=== PATIENT | female | born 1935 | race Caucasian/White ===

== ENCOUNTER 2018-04-03 12:54 | Inpatient (IN) | payer MEDICARE, OTHER ==
[2018-04-03] MEDS ORDERED: Heparin Sodium 100 Units/ML 3 ML Syringe FLUSH SCH (18:00)
[2018-04-03] MEDS ORDERED: ceFAZolin 1 GM Vial IVPUSH SCH (18:00)
[2018-04-03] MEDS ORDERED: Polyethylene Glycol 3350 Powder 17 GM Packet PO PRN (18:32)
[2018-04-03] MEDS ORDERED: Sodium Chloride 0.9% 10 ML Syringe IV SCH (18:45)
--- NOTE | 2018-04-03 19:11 | PCM.HP ---
H&P History of Present Illness - General Date of Service: 04/03/18 Admit Problem/Dx: Admission Diagnosis/Problem Admission Diagnosis/Problem Infection of prosthetic hip joint Source of Information: Patient History Limitations: Reports: No Limitations - History of Present Illness Initial Comments - Free Text/Narative: Ms. Deras is an 82 yo female who is admitted to swing bed for IV antibiotics and PT after an acute hospitalization in [place] for bacteremia secondary to right hip infection. The patient has had chronic hip pain despite a right HERMINIO in 05/17 and revision in 02/16. She had some testing done in [place] that raised some questions in her right hip joint. Therefore, an MRI was obtained locally and raised concern for possible infection. She had labs done that showed an elevated CRP and ESR; therefore, she was referred to [facility] to have an aspiration of the right hip. This was negative and she was dismissed home after an overnight admission. The subsequent day, her blood cultures returned positive, and she was readmitted for further evaluation and management. She was started on IV antibiotics and ID was consulted; she underwent revision of the right hip again on 03/31. Her blood cultures were consistent with the cultures from her hip surgery and grew staph lugdunensis. Once susceptibilities were available, she was transitioned to ancef and rifampin from vancomycin. Her hospitalization was complicated by postoperative anemia that responded well to transfusion of 1 unit of PRBC. She did initially have pain that was difficult to control but was able to transition to oral pain medications prior to dismissal today. Upon arrival to swing bed, she does endorse some right hip pain. She states that this has been overall well controlled with the medications she has gotten in the past 24 hours. She did have some constipation but that resolved with an enema yesterday. She also had a BM today. Her appetite has not been great but is improving; she notes some vomiting earlier in the week but none today. No fever or chills. She is tired from everything that has happened this week but looking forward to recovering. She denies any other concerns today. - Related Data Allergies/Adverse Reactions: Allergies Allergy/AdvReac Type Severity Reaction Status Date / Time codeine AdvReac Nausea and Verified 04/03/18 14:41 Vomiting nicotine patch Allergy Rash Uncoded 04/03/18 14:41 Home Medications: Home Meds Oxybutynin [Oxybutynin ER] 5 mg PO DAILY 08/06/17 [History] Denosumab [Prolia] 60 mg SQ Q180D 08/08/17 [History] Acetaminophen 650 mg PO Q6H 04/03/18 [History] Calcium Citrate/Vitamin D3 [Calcium Cit-Vit D 315-200] 1 tab PO BIDMEALS [History] Enoxaparin Sodium 40 mg SQ DAILY 04/03/18 [History] Heparin Sodium,Porcine/PF [Heparin 300 Unit/3 ml (100/ml)] 300 unit IV Q8H 04/03 [History] Heparin Sodium,Porcine/PF [Heparin 300 Unit/3 ml (100/ml)] 300 units IV ASDIRECTED PRN 04/03/18 [History] Hydrochlorothiazide [Microzide] 12.5 mg PO DAILY 04/03/18 [History] Polyethylene Glycol 3350 [Miralax] 17 gm PO DAILY PRN 04/03/18 [History] Rifampin [Rifadin] 300 mg PO BID 04/03/18 [History] Sennosides/Docusate Sodium [Senna Plus Tablet] 2 tab PO BID PRN 04/03/18 [ History] Sodium Chloride 0.9% [Saline Flush] 10 ml FLUSH ASDIRECTED PRN 04/03/18 [History ] Sodium Chloride 0.9% [Saline Flush] 10 ml IV Q8H 04/03/18 [History] ceFAZolin [Ancef] 2 gm IVPUSH Q8H 04/03/18 [History] oxyCODONE 5 mg PO Q4H PRN 04/03/18 [History] traMADol [Ultram] 50 mg PO Q6H PRN 04/03/18 [History] Past Medical History HEENT History: Reports: None Cardiovascular History: Reports: Heart Murmur, High Cholesterol, Other (See Below) Other Cardiovascular History: Mitral valve insuffiency. edema Respiratory History: Reports: COPD, Other (See Below) Other Respiratory History: pneumonia Gastrointestinal History: Reports: Colon Polyp, Hemorrhoids Genitourinary History: Reports: Other (See Below) Other Genitourinary History: Over active bladder Musculoskeletal History: Reports: Fracture, Osteoporosis Other Musculoskeletal History: Closed right hip fx. right wrist fx. 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 Dermatologic History: Reports: None - Infectious Disease History Infectious Disease History: Reports: None - Past Surgical History Head Surgeries/Procedures: Reports: None HEENT Surgical History: Reports: Adenoidectomy, Tonsillectomy Cardiovascular Surgical History: Reports: None GI Surgical History: Reports: Colonoscopy, Colostomy, Hernia, Abdominal, Other ( See Below) Other GI Surgeries/Procedures: colostomy with reversal Neurological Surgical History: Reports: None Musculoskeletal Surgical History: Reports: Carpal Tunnel, Hip Replacement Other Musculoskeletal Surgeries/Procedures:: Right Social & Family History - Family History Cardiac: Reports: CAD - Tobacco Use Smoking Status *Q: Former Smoker Used Tobacco, but Quit: Yes Month/Year Tobacco Last Used: 2013 - Caffeine Use Caffeine Use: Reports: Coffee - Alcohol Use Alcohol Use History: No Alcohol Use in Last Twelve Months: No - Recreational Drug Use Recreational Drug Use: No - Living Situation & Occupation Living situation: Reports: , Alone 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[employer]) H&P Review of Systems - Review of Systems: Review Of Systems: See Below General: Reports: No Symptoms HEENT: Reports: No Symptoms Pulmonary: Reports: No Symptoms Cardiovascular: Reports: No Symptoms Gastrointestinal: Reports: No Symptoms Genitourinary: Reports: No Symptoms Musculoskeletal: Reports: Joint Pain, Muscle Pain Skin: Reports: No Symptoms Psychiatric: Reports: No Symptoms Neurological: Reports: No Symptoms Exam - Exam Exam: See Below - Vital Signs Vital Signs: Last Vital Signs Temp 37.2 C 04/03/18 17:46 Pulse 103 H 04/03/18 17:46 Resp 18 04/03/18 15:11 BP 161/86 H 04/03/18 18:53 Pulse Ox 99 04/03/18 17:46 Weight: 77.564 kg - Exam General: Alert, Oriented, Cooperative HEENT: Conjunctiva Clear, Mucosa Moist & Superior, Posterior Pharynx Clear, Pupils Equal, Pupils Reactive Neck: Supple, Trachea Midline. No: Lymphadenopathy, Thyromegaly Lungs: Clear to Auscultation, Normal Respiratory Effort Cardiovascular: Regular Rate, Regular Rhythm, Normal S1, Normal S2, Systolic Murmur GI/Abdominal Exam: Normal Bowel Sounds, Soft, No Organomegaly, No Distention, No Mass Extremities: Normal Inspection, Non-Tender, Normal Capillary Refill, Pedal Edema (trace bilaterally) Peripheral Pulses: 2+: Radial (L), Radial (R), Posterior Tibial (L), Posterior Tibial (R), Dorsalis Pedis (L), Dorsalis Pedis (R) Skin: Warm, Dry, Intact Neuro Extensive - Mental Status: Alert, Oriented x3, Normal Mood/Affect *Q Meaningful Use (ADM) - VTE *Q VTE Anticoagulation Contraindications: Med/TX Not Indicated/Need - Problem List (1) Coag negative Staphylococcus bacteremia SNOMED Code(s): 054653113829, 258774667757764 ICD Code: R78.81 - BACTEREMIA Status: Acute Current Visit: Yes (2) Infection of prosthetic hip joint SNOMED Code(s): 547574145 ICD Code: T84.59XA - INFECT/INFLM REACTION DUE TO OTH INTERNAL JOINT PROSTH, INIT; Z96.649 - PRESENCE OF UNSPECIFIED ARTIFICIAL HIP JOINT Status: Acute Current Visit: Yes Qualifiers: Encounter type: sequela Qualified Code(s): T84.59XS - Infection and inflammatory reaction due to other internal joint prosthesis, sequela; Z96.649 - Presence of unspecified artificial hip joint (3) Anemia SNOMED Code(s): 487455566 ICD Code: D64.9 - ANEMIA, UNSPECIFIED Status: Acute Current Visit: Yes Qualifiers: Anemia type: other cause Other causes of anemia: acute posthemorrhagic Qualified Code(s): D62 - Acute posthemorrhagic anemia (4) Constipation SNOMED Code(s): 90301596 ICD Code: K59.00 - CONSTIPATION, UNSPECIFIED Status: Acute Current Visit : Yes Qualifiers: Constipation type: drug induced constipation Qualified Code(s): K59.03 - Drug induced constipation (5) COPD (chronic obstructive pulmonary disease) SNOMED Code(s): 93498540 ICD Code: J44.9 - CHRONIC OBSTRUCTIVE PULMONARY DISEASE, UNSPECIFIED Status : Chronic Current Visit: Yes Qualifiers: COPD type: unspecified COPD Qualified Code(s): J44.9 - Chronic obstructive pulmonary disease, unspecified (6) Hypertension SNOMED Code(s): 34923103 ICD Code: I10 - ESSENTIAL (PRIMARY) HYPERTENSION Status: Chronic Current Visit: Yes Qualifiers: Hypertension type: essential hypertension Qualified Code(s): I10 - Essential (primary) hypertension (7) Mitral regurgitation SNOMED Code(s): 65386323 ICD Code: I34.0 - NONRHEUMATIC MITRAL (VALVE) INSUFFICIENCY Status: Chronic Current Visit: Yes Qualifiers: Cardiac valve disease etiology: nonrheumatic Qualified Code(s): I34.0 - Nonrheumatic mitral (valve) insufficiency (8) OAB (overactive bladder) SNOMED Code(s): 758020078 ICD Code: N32.81 - OVERACTIVE BLADDER Status: Chronic Current Visit: Yes (9) Osteoporosis SNOMED Code(s): 95214427 ICD Code: M81.0 - AGE-RELATED OSTEOPOROSIS W/O CURRENT PATHOLOGICAL FRACTURE Status: Chronic Current Visit: Yes Qualifiers: Osteoporosis type: age-related Presence of current pathological fracture: without current pathological fracture Qualified Code(s): M81.0 - Age-related osteoporosis without current pathological fracture Problem List Initiated/Reviewed/Updated: Yes Orders Last 24hrs: Active Orders 24 hr Category Date Time Status Admission Status [Patient Status] [ADT] Routine ADT 04/03/18 13:49 Active Communication Order [RC] Tu@10 Care 04/03/18 16:01 Active Notify Provider Vital Signs [RC] ASDIRECTED Care 04/03/18 18:31 Ordered Oxygen Therapy [RC] PRN Care 04/03/18 18:31 Ordered Up With Assistance [RC] ASDIRECTED Care 04/03/18 18:31 Ordered VTE/DVT Education [RC] PER UNIT ROUTINE Care 04/03/18 18:31 Ordered Vital Signs [RC] PER UNIT ROUTINE Care 04/03/18 18:31 Ordered OT Evaluation and Treatment [CONS] Routine Cons 04/03/18 18:31 Ordered PT Evaluation and Treatment [CONS] Routine Cons 04/03/18 18:31 Ordered Regular Diet [DIET] Diet 04/03/18 Breakfast Ordered ALANINE AMINOTRANSFERASE,ALT [CHEM] Q7D Lab 04/07/18 05:00 Ordered ALANINE AMINOTRANSFERASE,ALT [CHEM] Q7D Lab 04/14/18 05:00 Ordered ALANINE AMINOTRANSFERASE,ALT [CHEM] Q7D Lab 04/21/18 05:00 Ordered ALANINE AMINOTRANSFERASE,ALT [CHEM] Q7D Lab 04/28/18 05:00 Ordered ALANINE AMINOTRANSFERASE,ALT [CHEM] Q7D Lab 05/05/18 05:00 Ordered ALANINE AMINOTRANSFERASE,ALT [CHEM] Q7D Lab 05/12/18 05:00 Ordered CBC WITH AUTO DIFF [HEME] Q7D Lab 04/07/18 05:00 Ordered CBC WITH AUTO DIFF [HEME] Q7D Lab 04/14/18 05:00 Ordered CBC WITH AUTO DIFF [HEME] Q7D Lab 04/21/18 05:00 Ordered CBC WITH AUTO DIFF [HEME] Q7D Lab 04/28/18 05:00 Ordered CBC WITH AUTO DIFF [HEME] Q7D Lab 05/05/18 05:00 Ordered CBC WITH AUTO DIFF [HEME] Q7D Lab 05/12/18 05:00 Ordered CREATININE W/GFR [CHEM] Q7D Lab 04/07/18 05:00 Ordered CREATININE W/GFR [CHEM] Q7D Lab 04/14/18 05:00 Ordered CREATININE W/GFR [CHEM] Q7D Lab 04/21/18 05:00 Ordered CREATININE W/GFR [CHEM] Q7D Lab 04/28/18 05:00 Ordered CREATININE W/GFR [CHEM] Q7D Lab 05/05/18 05:00 Ordered CREATININE W/GFR [CHEM] Q7D Lab 05/12/18 05:00 Ordered Acetaminophen [Tylenol] Med 04/03/18 18:45 Ordered 650 mg PO Q6H Docusate Sodium/Sennosides [Senna Plus] Med 04/03/18 18:32 Ordered 2 tab PO BID PRN Enoxaparin [Lovenox] Med 04/04/18 08:00 Ordered 40 mg SUBCUT DAILY Heparin Sodium [Heparin Lock Flush 100 Units/ML] Med 04/03/18 18:32 Ordered 300 unit FLUSH ASDIRECTED PRN Heparin Sodium [Heparin Lock Flush 100 Units/ML] Med 04/03/18 18:45 Ordered 300 unit FLUSH Q8H Oxybutynin [Oxybutynin ER] Med 04/04/18 08:00 Ordered 5 mg PO DAILY Polyethylene Glycol 3350 [MiraLAX] Med 04/03/18 18:32 Ordered 17 gm PO DAILY PRN Rifampin [Rifadin] Med 04/03/18 20:00 Ordered 300 mg PO BID Sodium Chloride 0.9% [Saline Flush] Med 04/03/18 18:32 Ordered 10 ml FLUSH ASDIRECTED PRN Sodium Chloride 0.9% [Saline Flush] Med 04/03/18 18:45 Ordered 10 ml IV Q8H ceFAZolin [Ancef] Med 04/03/18 18:45 Ordered 2 gm IVPUSH Q8H hydroCHLOROthiazide Med 04/04/18 08:00 Ordered 12.5 mg PO DAILY oxyCODONE Med 04/03/18 18:32 Ordered 5 mg PO Q4H PRN traMADol [Ultram] Med 04/03/18 18:32 Ordered 50 mg PO Q6H PRN Anticoagulation Contraindications VTE [AST] Routine Oth 04/03/18 18:31 Ordered Weight bearing status [OM.PC] Routine Oth 04/03/18 18:48 Active Resuscitation Status Routine Resus Stat 04/03/18 18:31 Ordered Medication Orders Acetaminophen (Tylenol) 650 mg PO Q6H SIMEON Cefazolin Sodium (Ancef) 2 gm IVPUSH Q8H [facility]ON Enoxaparin Sodium (Lovenox) 40 mg SUBCUT DAILY SIMEON Heparin Sodium (Porcine) (Heparin Lock Flush 100 Units/Ml) 300 unit FLUSH Q8H SIMEON Heparin Sodium (Porcine) (Heparin Lock Flush 100 Units/Ml) 300 unit FLUSH ASDIRECTED PRN PRN Reason: Other Hydrochlorothiazide (Hydrochlorothiazide) 12.5 mg PO DAILY SIMEON Non-Formulary Medication (Rifampin [Rifadin]) 300 mg PO BID SIMEON Oxybutynin Chloride (Oxybutynin Er) 5 mg PO DAILY SIMEON Oxycodone HCl (Oxycodone) 5 mg PO Q4H PRN PRN Reason: Pain (severe 7-10) Polyethylene Glycol (Miralax) 17 gm PO DAILY PRN PRN Reason: Constipation Senna/Docusate Sodium (Senna Plus) 2 tab PO BID PRN PRN Reason: Constipation Sodium Chloride (Saline Flush) 10 ml FLUSH ASDIRECTED PRN PRN Reason: Other Sodium Chloride (Saline Flush) 10 ml IV Q8H SIMEON Tramadol HCl (Ultram) 50 mg PO Q6H PRN PRN Reason: Pain (moderate 4-6) Assessment/Plan Comment:: #1 Staph lugdunensis bacteremia - Continue ancef and rifampin until 05/12/18. - F/u with ID is scheduled for 05/20. - She will have monitoring labs weekly while on the antibiotics, which have been entered by nursing staff. #2 Infection of prosthetic hip joint - S/p revision on 03/31. - Recovering well. - Patient is to be WBAT with posterior hip precautions. - Will clarify wound cares with ortho. - Otherwise, continue scheduled tylenol with PRN oxycodone and tramadol. Will plan to wean narcotics as soon as possible. - PT/OT eval and treat. - Ortho follow-up scheduled for 04/17. #3 Acute Postoperative anemia - s/p transfusion 1 unit PRBC. - She will have CBC's monitored weekly while on antibiotics and does not need more frequent monitoring than this unless symptomatic. #4 Constipation - Continue scheduled stool softeners and PRN miralax. - May consider also scheduling the miralax depending on how she does #5 COPD - On oxygen during her hospitalization and also at discharge. - No symptoms of any exacerbation. - Will wean as able. - If unable to wean, will consider further work-up. #6 Hypertension #7 Mitral Regurgitation - HCTZ was held while in [place] but ordered to resume on d/c. - BP's high after arriving to swing bed; therefore, will restart HCTZ tomorrow am. #8 Overactive Bladder - Continue oxybutynin. #9 Osteoporosis - Last prolia given 12/2017. Not due until July. Patient is admitted to swing bed for IV antibiotics and therapy post acute dismissal - will be admitted until antibiotics are completed on 05/12, longer if needed from a therapy standpoint. Lovenox ordered for VTE prophylaxis but notes state to transition to BID ASA upon discharge; will attempt to clarify this with ortho. Patient wishes to be full code - discussed on admission.
[2018-04-03] MEDS: ceFAZolin 1 GM Vial IVPUSH SCH (21:19)
[2018-04-03] MEDS: Rifampin 150 MG Cap PO SCH (21:20)
[2018-04-03] MEDS: Acetaminophen 325 MG Tab PO SCH (21:20)
[2018-04-03] MEDS: Sodium Chloride 0.9% 10 ML Syringe FLUSH PRN (21:29)
[2018-04-03] MEDS: Heparin Sodium 100 Units/ML 3 ML Syringe FLUSH SCH (22:12)
[2018-04-03] MEDS: Sodium Chloride 0.9% 10 ML Syringe IV SCH (22:13)
[2018-04-04] MEDS: Acetaminophen 325 MG Tab PO SCH ×6 (03:36→23:48)
[2018-04-04] MEDS: ceFAZolin 1 GM Vial IVPUSH SCH ×3 (05:13→20:55)
[2018-04-04] MEDS: Heparin Sodium 100 Units/ML 3 ML Syringe FLUSH SCH ×3 (05:32→21:04)
[2018-04-04] MEDS: Sodium Chloride 0.9% 10 ML Syringe IV SCH ×3 (05:32→22:32)
--- OUTSIDE RECORDS SUMMARY | 2018-04-04 07:48 | XMSREPORT | Summary of Care ---
:1935 Author Organization [facility] and On License Of [facility] Address [address] [place] [address] Phone Care Team Providers Name Role Phone Lauren Vidal PA-C Primary Care Provider Eben Willoughby MD Unavailable Rehab, [facility] RESOURCE Unavailable Lauren Vidal PA-C Attributed Provider Reason for Visit Auth/Cert Status Reason Specialty Diagnoses / Procedures Referred By Contact Referred To Contact Encounter Details Date Type Department Care Team Description 03/28/2018 - Hospital Encounter [facility] Provider, Generic Hosp Procedure Bacteremia due to 04/03/2018 [facility] MS4[facility] Linnette Rao MD [address] [place], [place] [id number] Gram-positive 1720 [facility] Simone Faustin MD [address] [place] [address] [phone] [facility] Favian Hernández DO [address] [place] [address] [phone] [place] [address] Allergies Active Allergy Reactions Severity Noted Date Comments Codeine Nausea and Vomiting 12/24/2012 Patient passed out and vomited; not sure if she has had hydrocodone, morphine, or hydromorphone before. Nicotine Polacrilex Other (Specify in 02/26/2017 Skin irritation at site Comments) of patch as of this encounter Medications Prescription Sig. Disp. Refills Start End Status Date Date oxybutynin Take 1 tablet (5 30 tablet 5 07/18/20 Active (DITROPAN-XL) 5 mg SR mg) by mouth 1 17 tablet (24 time per day hr)Indications: OAB (overactive bladder) denosumab (PROLIA) 60 Inject 1 mL (60 1 syringe 1 07/18/20 Active mg/mL subcutaneous mg) subcutaneously 17 018 injectionIndications: Every 6 months Age-related osteoporosis without current pathological fracture hydroCHLOROthiazide 25 Take 0.5 tablets 30 tablet 1 01/18/20 Active mg tabletIndications: (12.5 mg) by mouth 18 019 Hypertension, essential 1 time per day acetaminophen (TYLENOL) Take 2 tablets 40 tablet 0 04/03/20 Active 325 mg (650 mg) by mouth 18 tabletIndications: Every 6 hours Infected prosthetic hip, initial encounter oxyCODONE (OXY-IR) 5 mg Take 1 tablet (5 20 tablet 0 04/03/20 Active tablet (immediate mg) by mouth Every 18 release) 4 hours as needed for moderate pain or severe pain traMADol (ULTRAM) 50 mg Take 1 tablet (50 60 tablet 0 04/03/20 Active tabletIndications: mg) by mouth every 18 Chronic pain of right 6 hours as needed hip for severe pain enoxaparin (LOVENOX) 40 Inject 40 mg 33 syringe 0 04/04/20 Active mg syringe (100 mg/mL) subcutaneously 1 18 018 subcutaneous injection time per day solutionIndications: Infected prosthetic hip, initial encounter polyethylene glycol Take 1 packet by 0 04/03/20 Active (MIRALAX) mouth 1 time a day 18 packetIndications: as needed for Infected prosthetic constipation hip, initial encounter Dissolve in 4 to 8 ounces of water, juice, soda, coffee, tea. senna-docusate sodium Take 2 tablets by 0 04/03/20 Active (SENOKOT-S;PERICOLACE) mouth 2 times a 18 8.6-50 MG day as needed for tabletIndications: constipation Infected prosthetic hip, initial encounter sodium chloride 0.9% Administer 10 mL intravenously As often as necessary for other (Specify) (Flush infusion line before each antibiotic infusion and after each infusion completed) Flush infusion line before each antibiotic infusion and after each infusion completed. 0 04/03/20 Active prefilled 10 mL syringe Flush line with heparin 300 units/ 3 mL after the last saline flush 18 0.9% SOLNIndications: Infected prosthetic hip, initial encounter hEParin 100 units/mL Administer 3 mL 0 04/03/20 Active injection (300 Units) 18 018 solutionIndications: intravenously As Infected prosthetic often as necessary hip, initial encounter for other (Specify) (heparin 300 units/3 mL IV FLUSH after completion of each antibiotic infusion (after saline flush)) for up to 1 day heparin 300 units/3 mL IV FLUSH after completion of each antibiotic infusion (after saline flush) ceFAZolin Administer 2,000 0 04/03/20 Active (ANCEF;KEFZOL) 2,000 mg mg intravenously 18 018 in sodium chloride 0.9% Every 8 hours 50 mLIndications: Infected prosthetic hip, initial encounter calcium citrate-vitamin Take 1 tablet by 0 04/03/20 Active D (CITRACAL + VIT D) mouth 2 times a 18 315 mg-200 unit TABS day with meals rifAMPin (RIFADIN) 300 Take 1 capsule 84 capsule 0 04/03/20 Active mg capsule (300 mg) by mouth 18 2 times a day calcium citrate-vitamin Take 1 tablet by Suspended D (CITRACAL + VIT D) mouth 2 times a 018 315 mg-200 unit TABS day with meals. traMADol (ULTRAM) 50 mg Take 1 tablet (50 60 tablet 0 03/26/20 Suspended tabletIndications: mg) by mouth 2 18 018 Chronic pain of right times a day as hip needed for severe pain acetaminophen (TYLENOL) Take 650 mg by Suspended 325 mg tablet mouth every night 018 at bedtime as of this encounter Active Problems Problem Noted Date Infected prosthetic hip, initial encounter 03/31/2018 Bacteremia due to Gram-positive bacteria 03/28/2018 Pyogenic arthritis of right hip 03/27/2018 Septic joint 03/27/2018 Hypertension, essential 01/17/2018 Elevated BP without diagnosis of hypertension 07/17/2017 Osteoporosis 12/28/2015 Overview: Reclast 12/20/15 Status post total replacement of right hip 07/11/2015 Hyperlipidemia 02/22/2015 Colon adenoma 02/22/2015 Overview: Colonoscopy performed on 01/15/14 with 2 sigmoid polyps removed. Tubulovillous adenoma and serrated sessile polyp on path. 3 year follow-up colonoscopy recommended. Squamous cell carcinoma of perianal region 08/10/2014 Overview: She had surgery by Dr Carpenter on 01/18/14 with circumferential perianal skin excision of a large perianal lesion and advancement flap closure of the perianal skin and perineum. Also laparoscopic colostomy creation. Pathology showed: Wide excision of perianal skin showing: - Invasive squamous cell carcinoma of anus (approximately 2 cm in greatest dimension) with tumor focally involving deep margin on one section and at peripheral margins (in-situ) 1-2 o'clock and 3:30-4:30. COMMENT: The entire specimen is sectioned and 53 slides are examined. The entire circumferential margin is examined in an enface manner. SYNOPTIC REPORT - Tumor Site: Perianal skin. - Procedure: Excision. - Specimen Integrity: Intact. - Tumor Size: Approximately 2 cm in greatest dimension. - Histologic Type: Squamous cell carcinoma. - Histologic Grade: Well-differentiated. - Microscopic Tumor Extension: Tumor invades perianal skin. - Margins: Margins involved: Deep focally and peripheral margins - 1-2 o'clock and 3:30-4:30 in-situ. - Treatment Effect: No prior treatment. - Lymphovascular Invasion: Not identified. - Perineural Invasion: Not identified. - Staging: pT2. Comment: Because of the relative difficulty in measuring the size of the tumor I have staged this as T2 instead of T1. Mrs. Beach had reexcision of margin on previous biopsy site and closure of defect on 04/21/14. Path showed: Anal margin, excision: - Polypoid, ulcerated granulation tissue and acute inflammation of squamous mucosa. - No residual invasive or insitu carcinoma. She developed a right inguinal mass on which was biopsied and negative. 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 PET/CT on was negative. Mrs. Beach was referred to Dr. Willoughby and started radiation on 08/31/14. She received 5000 cGy given in 25 fractions to the right inguinal area. She completed radiation on 10/05/14. She had Colostomy takedown with partial colonic resection and colocolonic anastomosis on 01/03/15. Path was negative. PET/CT on 01/27/15 showed some activity in the right liver?significance. Imaging of the liver with another modality was recommended. Colonoscopy performed on 01/15/14 with 2 sigmoid polyps removed. Tubulovillous adenoma and serrated sessile polyp on path. She was hospitalized with a right hip fracture on 05/29/15. She had an acute kidney injury thought to be prerenal. There was no history of a fall. She had a right total hip arthroplasty on 05/29/15. There was no evidence of malignancy on pathology. She was transferred to the rehab unit on 06/03/15. She was discharged from the rehab unit on 06/08/15. PET/CT on 06/21/15 showed no evidence of recurrence. She had a fracture of the right 9th rib. Mitral regurgitation 01/28/2014 Overview: EF 65% last echo December 2012. Mild to moderate MR. Mild diastolic dysfunction. Overactive bladder 01/15/2013 Overview: Started Toviaz 12/2012. She reports didn't work. Edema extremities 01/15/2013 Chronic obstructive pulmonary disease 10/04/2010 Hemorrhoids 10/03/2006 as of this encounter Resolved Problems Problem Noted Date Resolved Date Loose total hip arthroplasty 12/12/2016 07/17/2017 Chronic pain of right hip 10/20/2015 07/17/2017 Closed right hip fracture 05/29/2015 09/28/2015 Primary osteoarthritis of right hip 02/09/2015 06/07/2015 S/P colostomy 02/04/2014 07/17/2017 Overview: Temporary; placed to allow healing of rectal resection, 01/18/14. Right wrist fracture 11/14/2012 09/28/2015 as of this encounter Immunizations Name Dates Previously Given Next Due FLU VACCINE HIGH DOSE 65YR+ 06/07/2017, 06/28/2016, 06/03/2015, 05/20/2014, 05/28/2013, 06/09/2012 Influenza Vaccine,unspecified 06/24/2008 Pneumococcal Conj PCV13 12/28/2015 Pneumococcal Polysaccharide PPSV23 09/03/2001 TDAP 03/28/2016 Td 08/08/1999 Td(adult)preservative free 08/08/1999 Zoster Live(Zostavax) 05/28/2013 as of this encounter Social History Tobacco Use Types Packs/Day Years Used Date Former Smoker Cigarettes 1 40 Quit: 11/17/2012 Smokeless Tobacco: Never Used Alcohol Use Drinks/Week oz/Week Comments Yes 1 Glasses of wine 0.6 occasionally 0 Standard drinks or equivalent Sex Assigned at Date Recorded Not on file as of this encounter Last Filed Vital Signs Vital Sign Reading Time Taken Blood Pressure 125/64 04/02/2018 11:46 PM CDT Pulse 90 04/02/2018 11:46 PM CDT Temperature 36.9 C (98.4 F) 04/02/2018 11:46 PM CDT Respiratory Rate 16 04/02/2018 11:46 PM CDT Oxygen Saturation 98% 04/02/2018 11:46 PM CDT Inhaled Oxygen Concentration - - Weight 73.4 kg (161 lb 13.1 oz) 03/28/2018 2:00 PM CDT Height 165.1 cm (5' 5") 03/28/2018 2:00 PM CDT Body Mass Index 26.93 03/28/2018 2:00 PM CDT in this encounter Functional Status Functional Status Response Date of Assessment Is the person deaf or does he/she have serious difficulty No 03/28/2018 hearing? Is this person blind or does he/she have difficulty No 03/28/2018 seeing even when wearing glasses? Do you have difficulty with walking, balance, climbing Yes 03/28/2018 stairs, or had a fall in the last 3 months? Does the patient have difficulty dressing or bathing? No 03/28/2018 Because of a physical, mental, or emotional condition; No 03/28/2018 does this person have difficulty doing errands alone such as visiting a doctor's office or shopping? Cognitive Status Response Date of Assessment Because of a physical, mental, or emotional condition; No 03/28/2018 does this person have serious difficulty concentrating, remembering, or making decisions? as of this encounter Discharge Summaries Favian Hernández DO - 04/03/2018 10:01 AM CDTFormatting of this note may be different from the original. 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 Beach underwent R hip revision due to infected joint. Tolerated procedure well. Did have significant post op anemia requiring x1 transfusion. Had increased pain as well but was controlled with oral pain medications. Due to infection and hip surgery recommended to have SNF while on IV abx. Noother concerns today and is feeling well. Patient is medically stable and fit for discharge. Follow up with ortho, ID and skilled nursing provider. IV abx per ID with rifampin/cefazolin. DVT prophylaxis, bowel regimen and pain control prescribed. Follow-Up Scheduled Preliminary Discharge Medications This list of medications is preliminary and tentative. Please see the After Visit Summary for the final and accurate medication list. Discharge Medication List START taking these medications START: enoxaparin 40 mg syringe (100 mg/mL) subcutaneous injection solution Commonly known as: LOVENOX Dose: 40 mg Inject 40 mg subcutaneously 1 time per day Start taking on: 04/04/2018 START: oxyCODONE 5 mg tablet (immediate release) Commonly known as: OXY-IR Dose: 5 mg Take 1 tablet (5 mg) by mouth Every 4 hours as needed for moderate pain or severe pain START: polyethylene glycol packet Commonly known as: MIRALAX Dose: 1 packet Take 1 packet by mouth 1 time a day as needed for constipation Dissolve in 4 to 8 ounces of water, juice, soda, coffee, tea. START: senna-docusate sodium 8.6-50 MG tablet Commonly known as: SENOKOT-S;PERICOLACE Dose: 2 tablet Take 2 tablets by mouth 2 times a day as needed for constipation CONTINUE taking these medications which have CHANGED CONTINUE: acetaminophen 325 mg tablet Commonly known as: TYLENOL Dose: 650 mg Take 2 tablets (650 mg) by mouth Every 6 hours What changed: when to take this CONTINUE: traMADol 50 mg tablet Commonly known as: ULTRAM Dose: 50 mg Take 1 tablet (50 mg) by mouth every 6 hours as needed for severe pain What changed: when to take this CONTINUE taking these medications which have NOT CHANGED CONTINUE: calcium citrate-vitamin D 315 mg-200 unit Tabs Commonly known as: CITRACAL + VIT D Dose: 1 tablet Take 1 tablet by mouth 2 times a day with meals. CONTINUE: denosumab 60 mg/mL subcutaneous injection Commonly known as: PROLIA Dose: 60 mg Inject 1 mL (60 mg) subcutaneously Every 6 months CONTINUE: hydroCHLOROthiazide 25 mg tablet Dose: 12.5 mg Take 0.5 tablets (12.5 mg) by mouth 1 time per day CONTINUE: oxybutynin 5 mg SR tablet (24 hr) Commonly known as: DITROPAN-XL Dose: 5 mg Take 1 tablet (5 mg) by mouth 1 time per day Where to Get Your Medications Information about where to get these medications is not yet available ! Ask your nurse or doctor about these medications acetaminophen 325 mg tablet enoxaparin 40 mg syringe (100 mg/mL) subcutaneous injection solution polyethylene glycol packet senna-docusate sodium 8.6-50 MG tablet traMADol 50 mg tablet Temp: 98.4 F (36.9 C) BP: 125/64 Weight: 73.4 kg (161 lb 13.1 oz) SpO2: 98 % Resp: 16 Pulse: 90 Current BMI (>50=increased risk): 26.93 O2 Device: NC - no humidity O2 Flow Rate (L/min): 3 l/min Physical Exam Constitutional: She is oriented to person, place, and time. She appears well- nourished. No distress. HENT: Head: Atraumatic. Cardiovascular: Normal rate and regular rhythm. Pulmonary/Chest: No respiratory distress. Abdominal: There is no tenderness. Musculoskeletal: She exhibits tenderness. She exhibits no edema. Neurological: She is alert and oriented to person, place, and time. Skin: Skin is warm and dry. Psychiatric: She has a normal mood and affect. Her behavior is normal. Procedures Performed and Findings All procedures during admission Procedure(s): STAGE 1 RIGHT TOTAL HIP ARTHROPLASTY REVISION Consultations Obtained ORTHOPEDICS CONSULT INFECTIOUS DISEASE CONSULT PICC LINE PLACEMENT CONSULT CASE MANAGEMENT CONSULT Discharge Disposition ADULT Discharge Planning: Home (1, 2) Medical Decision Making A total of 35 minutes were spent on discharge coordination. in this encounter Discharge Instructions Deysi Silverman RN - 03/31/2018Total Hip post op Activity ? Walk with walker/crutches full weight bearing as instructed by Physical Therapy. ? Continue exercises you have been taught. ? Sit in a chair that is safe for your hip. Higher the firmer encouraged. ? Do not drive until your Surgeon informs you that you can. ? Lie down 2 times a day in bed for 45 minutes. You may elevate your feet on pillows. If swelling occurs lie down in bed 4 times a day. ? Ice for right hip 5 times a day and as needed for swelling and pain; alternate 20 minutes on, 20 minutes off. ? YANA hose on during day and off at bedtime for 6 weeks or as instructed by Orthopedic Surgeon. ? Follow hip precautions for 12 weeks. ? No hip abduction exercises Dressing instructions: Cover dressing with PressNSeal for 14 days-for shower to right hip ? Leave right hip dressing intact and dry for 14 days after surgery until follow up with Dr. Faustin. ? After dressing is removed, okay to leave right hip incision uncovered & okay to shower withoutcovering the incision. ? No lotions, creams, or ointments over the incision until fully healed. ? Soap & water over the incision is okay. ? Leave the skin adhesive mesh on the hip intact for up to 2 weeks to right hip. ? When it begins to peel, you may attempt to peel it off completely, or trim the peeling edges with scissors. Reviewed "Orthopedic Discharge Education Guidelines" and "Pain management after You are Discharged" documents with patient. Paper copies were attached to AVS for patient to use as a reference for follow up questions. Preventing Blood Clots (Deep Vein Thrombosis) In the days and weeks after surgery, you have a higher chance of developing a deep vein thrombosis (DVT). This is a condition in which a blood clot or thrombus develops in a deep vein. They are most common in the leg. But, a DVT may develop in an arm, or another deep vein in the body. A piece of the clot, called an embolus, can separate from the vein and travel to the lungs. A blood clot in the lungsis called a pulmonary embolus (PE). This can cut off the flow of blood. It is a medical emergency and may cause . Deep vein thrombosis can occur even after you go home. Follow all instructions from your health careprovider. The following are some general guidelines about DVT prevention: Anticoagulant medication. If an anticoagulant was prescribed, make sure you follow all directionsabout taking it. Be sure you know what foods and medicines may interact. Also, ask your health care provider what to do if you forget to take a dose. Compression stockings. Your health care provider will tell you how often to wear and remove the stockings. Follow all instructions closely. Each time you remove your stockings, check your legs and feet for reddened areas or sores. If you see any changes, call your health care provider right away. Returning to activity. Follow all instructions about returning to activities. Be as active as youcan. This improves blood flow and helps prevent a clot from forming. When in bed or in a chair, continue with the ankle exercises you did in the hospital. Elevate your extremity above the level of yourheart to help prevent swelling. in this encounter Progress Notes Sandra Dickerson PA - 04/03/2018 10:20 AM CDTFormatting of this note may be different from the original. 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 S/p stage 1 right HERMINIO revision secondary to infectoin right HERMINIO prosthesis - staph lugdunensis 2. Acute post-op blood loss anemia - transfused 1 unit PRBC 04/01/18 3. PMH right HERMINIO 05/29/[address] Jerry Jensen secondary to displaced femoral neck fracture 4. Right HERMINIO revision (all implants revised except femoral stem), late January [address] Javi Raymond 5. Staph lugdunensis bacteremia, blood cx /2 + 03/26 6. HTN 7. COPD 8. Valvular heart disease, MR 9. Overactive bladder 10. Osteoporosis 11. 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 Pain control 2. Lovenox while in-house, then ASA 81mg po BID x 42 days post-hospital discharge 3. PT/OT: WBAT RLE, posterior hip precautions x 12 weeks 4. Will require 6 weeks IV antibiotics per ID - currently on IV ancef q8h and oral Rifampin. Stop date ~05/12/2018, then oral suppressive abx 5. D/C plan: SNF today for IV abx and continued therapies for gait and ADL training. Ok per ortho todischarge today. Subjective: Patient is improving. Pain under control. Tolerating IV abx. No new complaints. +BM Objective: BP 125/64 | Pulse 90 | Temp 98.4 F (36.9 C) | Resp 16 | Ht 1.651 m (5' 5") | Wt 73.4 kg (161 lb 13.1 oz) | SpO2 98% | BMI 26.93 kg/m2 Maximum Temperatures (last 24 hours) Temperature Maximum Max Temp 98.7 F (37.1 C) Intake and Output: 04/02 0700 - 04/03 0659 In: 2156 [Oral:700] Out: 950 [Urine:850; Emesis:100] General: A&O x3, all 4's NVI. Respirations unlabored. Exam: right lower extremity: posterior surgical dressing remains C/D/I with significant right gluteal & thigh edema noted. Right EHL/FHL 5/ str. Negative Estrella's. Tolerates gentle A/PROM right LE. Lab Results Component Value Date WBC 4.4 03/30/2018 RBC 3.84 03/30/2018 HEMOGLOBIN 8.1 (L) 04/02/2018 HEMATOCRIT 33.3 (L) 03/30/2018 MCV 86.7 03/30/2018 MCH 26.8 03/30/2018 MCHC 30.9 (L) 03/30/2018 RDW 13.6 11/15/2012 PLTCOUNT 342 03/30/2018 NEUTROPCT 64.7 03/29/2018 LYMPHSPCT 22.5 03/29/2018 MONOSPCT 9.9 03/29/2018 EOSPCT 2.5 03/29/2018 BASOPHILPCT 0.4 03/29/2018 Lab Results Component Value Date PT 14.1 03/30/2018 INR 1.1 (L) 03/30/2018 Micro: 03/31/18 OR cxs: + staph lugdunensis 03/28/18 blood cultures x2: NGTD 03/27/18 right hip aspirate: + staph lugdunensis, pansensitive 03/26/18 blood cultures 1/2 + staph lugdunensis Labs and xrays were reviewed.Cordell Cantor PA - 04/02/2018 11:48 AM CDTFormatting of this note may be different from the original. 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 S/p stage 1 right HERMINIO revision secondary to infectoin right HERMINIO prosthesis - staph lugdunensis 2. Acute post-op blood loss anemia - transfused 1 unit PRBC 04/01/18 3. PMH right HERMINIO 05/29/[address] Jerry Jensen secondary to displaced femoral neck fracture 4. Right HERMINIO revision (all implants revised except femoral stem), late January [address] Javi Raymond 5. Staph lugdunensis bacteremia, blood cx 09/03 + 03/26 6. HTN 7. COPD 8. Valvular heart disease, MR 9. Overactive bladder 10. Osteoporosis 11. 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 Pain control 2. Lovenox while in-house, then ASA 81mg po BID x 42 days post-hospital discharge 3. PT/OT: WBAT RLE, posterior hip precautions x 12 weeks 4. Will require 6 weeks IV antibiotics per ID - currently on IV ancef q8h and oral Rifampin. Stop date ~05/12/2018, then oral suppressive abx 5. D/C plan: SNF options for IV infusions when medically stable. Awaiting placement. Should be no need to wait for final culture results, as we already know the organism and the treatment plan. Subjective: No acute events. Slept poorly due to pain and interruptions/vitals Objective: BP 124/58 | Pulse 102 | Temp 98.6 F (37 C) | Resp 16 | Ht 1.651 m (5' 5") | Wt 73.4 kg (161 lb 13.1 oz) | SpO2 96% | BMI 26.93 kg/m2 Maximum Temperatures (last 24 hours) Temperature Maximum Max Temp 98.8 F (37.1 C) Intake and Output: 04/01 0700 - 04/02 0659 In: 2949 [Oral:600] Out: 901 [Urine:901] General: A&O x3, all 4's NVI. Respirations unlabored. Exam: right lower extremity: posterior surgical dressing remains c/d/i with significant right gluteal & thigh edema noted. Right EHL/FHL 01/04 str. Negative Estrella's. Lab Results Component Value Date WBC 4.4 03/30/2018 RBC 3.84 03/30/2018 HEMOGLOBIN 8.1 (L) 04/02/2018 HEMATOCRIT 33.3 (L) 03/30/2018 MCV 86.7 03/30/2018 MCH 26.8 03/30/2018 MCHC 30.9 (L) 03/30/2018 RDW 13.6 11/15/2012 PLTCOUNT 342 03/30/2018 NEUTROPCT 64.7 03/29/2018 LYMPHSPCT 22.5 03/29/2018 MONOSPCT 9.9 03/29/2018 EOSPCT 2.5 03/29/2018 BASOPHILPCT 0.4 03/29/2018 Lab Results Component Value Date PT 14.1 03/30/2018 INR 1.1 (L) 03/30/2018 Micro: 03/31/18 OR cxs: + staph lugdunensis 03/28/18 blood cultures x2: NGTD 03/27/18 right hip aspirate: + staph lugdunensis, pansensitive 03/26/18 blood cultures 1/2 + staph lugdunensisFavian Hernández DO - 04/02/2018 11 :00 AM CDTFormatting of this note may be different from the original. DAILY PROGRESS NOTE Esthela Beach is a 82yr old female admitted on 03/28/2018 12:55 PM. 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 Discussed with surgery. Hgb stable. Possible dc tomorrow. Review of Systems Review of Systems Constitutional: Negative for chills, fatigue and fever. Respiratory: Negative for shortness of breath. Cardiovascular: Negative for chest pain. Gastrointestinal: Negative for abdominal pain. Genitourinary: Negative for difficulty urinating. Musculoskeletal: Positive for back pain and gait problem. Skin: Positive for pallor and wound. Allergic/Immunologic: Negative for immunocompromised state. Neurological: Negative for headaches. Hematological: Does not bruise/bleed easily. Psychiatric/Behavioral: Negative for agitation, behavioral problems and confusion. Physical Exam Vital Signs: Temp: 98.6 F (37 C) | BP: 124/58 | Pulse: 102 | Resp: 16 | Pain Rating: Other (specify) (patient sleeping) (out of 10) | Weight: 73.4 kg ( 161 lb 13.1 oz) | O2 Device: NC - no humidity O2 Flow Rate (L/min): 2 l/min | SpO2: 96 % Maximum Temperatures (last 24 hours) Temperature Maximum Max Temp 98.8 F (37.1 C) Intake and Output: 04/01 0700 - 04/02 0659 In: 2949 [Oral:600] Out: 901 [Urine:901] Physical Exam Constitutional: She is oriented to person, place, and time. She appears well- nourished. No distress. HENT: Poor dentition Cardiovascular: Normal rate and regular rhythm. Pulmonary/Chest: No respiratory distress. Abdominal: There is no tenderness. Musculoskeletal: She exhibits tenderness. She exhibits no edema. Neurological: She is alert and oriented to person, place, and time. Skin: Skin is warm and dry. Psychiatric: She has a normal mood and affect. Her behavior is normal. Labs Labs (Last day) 04/02/18 0444 - 04/02/18 0444 CBC 04/02/18 0444 CBC Hemoglobin 11.5-15.8 (g/dL) 8.1 Medical Decision making Medical Decision Making Total time spent in care of this patient 35 minutes with greater than 50 percent of the time spent in counseling and coordination of care as described above alongside reviewing chart, discussing with nursing, phone calls, reviewing labs, and imaging. Sandra Dickerson PA - 04/01/2018 10:32 AM CDTFormatting of this note may be different from the original. 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 Acute post-op blood loss anemia - transfused 1 unit PRBC 04/01/18 3. PMH right HERMINIO 05/29/[address] Jerry Jensen secondary to displaced femoral neck fracture 4. Right HERMINIO revision (all implants revised except femoral stem), late January [address] Javi Raymond 5. Staph lugdunensis bacteremia, blood cx 09/03 + 03/26 6. HTN 7. COPD 8. Valvular heart disease, MR 9. Overactive bladder 10. Osteoporosis 11. 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 Pain control 2. Lovenox while in-house, then ASA 81mg po BID x 42 days post-hospital discharge 3. PT/OT: WBAT RLE, posterior hip precautions x 12 weeks 4. Will require 6 weeks IV antibiotics per ID - currently on IV ancef q8h and oral Rifampin 5. D/C plan: SNF vs home with [facility] for IV infusions when medically stable Subjective: Patient is doing well. Pain controlled. Denies fevers/chills, [place]. Denies SOB/CP. Objective: BP 127/57 | Pulse 93 | Temp 97.2 F (36.2 C) | Resp 18 | Ht 1.651 m (5' 5") | Wt 73.4 kg (161 lb 13.1 oz) | SpO2 99% | BMI 26.93 kg/m2 Maximum Temperatures (last 24 hours) Temperature Maximum Max Temp 97.9 F (36.6 C) Intake and Output: 03/31 0700 - 04/01 0659 In: 3434 Out: 1196 [Urine:806; Emesis:40] General: AOx3, NAD. Respirations unlabored. Exam: right lower extremity. Right hip dressing C/D/I. Tolerates gentle A/PROM right LE. Wound was dry. Dressing was not changed. Neurovascular intact. No calf tenderness noted in right lower extremity. EHL/FHL 5/5. Lab Results Component Value Date WBC 4.4 03/30/2018 RBC 3.84 03/30/2018 HEMOGLOBIN 7.2 (L) 04/01/2018 HEMATOCRIT 33.3 (L) 03/30/2018 MCV 86.7 03/30/2018 MCH 26.8 03/30/2018 MCHC 30.9 (L) 03/30/2018 RDW 13.6 11/15/2012 PLTCOUNT 342 03/30/2018 NEUTROPCT 64.7 03/29/2018 LYMPHSPCT 22.5 03/29/2018 MONOSPCT 9.9 03/29/2018 EOSPCT 2.5 03/29/2018 BASOPHILPCT 0.4 03/29/2018 Lab Results Component Value Date PT 14.1 03/30/2018 INR 1.1 (L) 03/30/2018 Micro: 03/31/18 OR cxs: NOS 03/28/18 blood cultures x2: NGTD 03/27/18 right hip aspirate: + staph lugdunensis, sensitivity pending 03/26/18 blood cultures 1/2 + staph lugdunensis Labs and xrays were reviewed.Favian Hernández, DO - 04/01/2018 10:21 AM CDTFormatting of this note may be different from the original. DAILY PROGRESS NOTE Esthela Beach is a 82yr old female admitted on 03/28/2018 12:55 PM. 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 Picc line placed today. Drop in hgb and blood transfusion given x1. Plan for placement with abx. Review of Systems Review of Systems Constitutional: Negative for chills, fatigue and fever. Respiratory: Negative for shortness of breath. Cardiovascular: Negative for chest pain. Gastrointestinal: Negative for abdominal pain. Genitourinary: Negative for difficulty urinating. Musculoskeletal: Positive for back pain and gait problem. Skin: Positive for pallor and wound. Allergic/Immunologic: Negative for immunocompromised state. Neurological: Negative for headaches. Hematological: Does not bruise/bleed easily. Psychiatric/Behavioral: Negative for agitation, behavioral problems and confusion. Physical Exam Vital Signs: Temp: 97.2 F (36.2 C) | BP: 127/57 | Pulse: 93 | Resp: 18 | Pain Rating: Other (specify) ((sleeping)) (out of 10) | Weight: 73.4 kg (161 lb 13.1 oz) | O2 Device: Room Air O2 Flow Rate (L/min): 2 l/min | SpO2: 99 % Maximum Temperatures (last 24 hours) Temperature Maximum Max Temp 97.9 F (36.6 C) Intake and Output: 03/31 0700 - 04/01 0659 In: 3434 Out: 1196 [Urine:806; Emesis:40] Physical Exam Constitutional: She is oriented to person, place, and time. She appears well- nourished. No distress. HENT: Poor dentition Cardiovascular: Normal rate and regular rhythm. Pulmonary/Chest: No respiratory distress. Abdominal: There is no tenderness. Musculoskeletal: She exhibits tenderness. She exhibits no edema. Neurological: She is alert and oriented to person, place, and time. Skin: Skin is warm and dry. Psychiatric: She has a normal mood and affect. Her behavior is normal. Labs Labs (Last day) 04/01/18 0753 - 04/01/18 0753 BLOOD BANK 04/01/18 07504/01/18 07504/01/18 07504/01/18 0753 BLOOD BANK Product Code RBC, Leukoreduced CP2D>AS3 [id number] RBC, Leukoreduced CP2D> AS3 [id number] Unit ID [id number] Unit ABO Type A A Unit Rh Type POS POS Product Status Crossmatched XM Issued IS 04/01/18 0531 - 04/01/18 0531 CBC 04/01/18 0531 CBC Hemoglobin 11.5-15.8 (g/dL) 7.2 04/01/18 0531 - 04/01/18 0531 CHEMISTRY 04/01/18 0531 CHEMISTRY Glucose 70-100 (mg/dL) 127 Sodium 135-145 (meq/L) 141 Potassium 3.5-5.3 (meq/L) 5.2 Chloride 99-110 (meq/L) 106 CO2 20-29 (meq/L) 27 Anion Gap with K 6-20 (meq/L) 13 BUN 6-22 (mg/dL) 20 Creatinine 0.60-1.10 (mg/dL) 0.99 BUN/Creatinine Ratio 10.0-25.0 20.2 Calcium 8.5-10.5 (mg/dL) 8.4 eGFR >=60 (mL/min/1.73m2) 65 eGFR Non- >=60 (mL/min/1.73m2) 54 03/31/18 1209 - 03/31/18 1208 MISCELLANEOUS MICRO 03/31/18 1209 03/31/18 1209 03/31/18 1209 03/31/18 1209 03/31/18 1208 MISCELLANEOUS MICRO Gram Stain Many (>25/LPF) WBC's Many (>25/LPF) RBC's No epithelial cells seen No organisms seen Moderate (10 to 25/LPF) WBC's 03/31/18 1208 - 03/31/18 1121 MISCELLANEOUS MICRO 03/31/18 1208 03/31/18 1208 03/31/18 1121 03/31/18 1121 03/31/18 1121 MISCELLANEOUS MICRO Gram Stain No epithelial cells seen No organisms seen Moderate (10 to 25/LPF) WBC's No epithelial cells seen No organisms seen 04/01/18 0753 - 03/31/18 1121 OTHER 04/01/18 0753 04/01/18 0753 04/01/18 0531 03/31/18 1208 03/31/18 1121 OTHER Age (Years) 82 BPAM Blood Expiration Date [facility] Coding System 2981 1882 Culture Result Insufficient growth after overnight incubation. Culture reincubated. Insufficient growth after overnight incubation. Culture reincubated. Medical Decision making Medical Decision Making Total time spent in care of this patient 35 minutes with greater than 50 percent of the time spent in counseling and coordination of care as described above alongside reviewing chart, discussing with nursing, phone calls, reviewing labs, and imaging. Collin Schrader MD - 03/31/2018 7:00 PM CDTFormatting of this note may be different from the original. 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 Staph lugdunensis confirmed to be susceptible to oxacillin. Therefore, will change antibiotics to cefazolin. She will continue the same along with rifampin for a total of 6 weeks through May 12, 2018. Please place PICC line. Anticipate discharge to swing bed in the next couple days. Discussed with patient and medicine service. Collin Schrader MD BACKGROUND: Patient is a very pleasant 82yr old female who is being followed for right hip Prosthetic joint infection with Staph lugdunensis. She is currently on treatment with Vancomycin. INTERVAL HISTORY: The patient is now seen in follow-up. Had washout, removal of components and placement of prostalacdevice today. Doing well postop. Participated in PT. Tolerating antibiotics. No new rash or fever. No diarrhea. REVIEW OF SYSTEMS: Pertinent positives and negatives as outlined in Interval History. Rest negative MEDICATIONS: Reviewed in EMR PHYSICAL EXAM Vital Signs: BP: 113/55; Pulse: 55; Temp: 97.4 F (36.3 C); Resp: 16; SpO2: 100 %;O2 Device: NC - no humidity O2 Flow Rate (L/min): 2 l/min; Maximum Temperatures (last 24 hours) Temperature Maximum Max Temp 97.8 F (36.6 C) General: No acute distress Skin: No new rashes or lesions Chest: Clear to auscultation Cardiovascular: Regular rate and rhythm. No murmurs, rubs or gallop Abdomen: Soft and non tender. No organomegaly Musculoskeletal: No large joint swelling, tenderness or redness Neurological: Alert and oriented x 3. No gross motor deficits REVIEW AND INTERPRETATION OF LAB AND IMAGING DATA: Microbiology: Blood Cultures - 03/26 - Staph lugdunensis Synovial fluid Culture - 03/27 - Staph lugdunensis Blood Cultures - 03/28 - negative thus far Lab Results Component Value Date WBC 4.4 03/30/2018 HEMOGLOBIN 10.3 (L) 03/30/2018 PLTCOUNT 342 03/30/2018 CREATSERUM 0.70 03/29/2018 ALKPHOS 120 01/17/2018 AST 17 01/17/2018 ALT 11 01/17/2018 VANCOTROUGH 13.0 03/31/2018 Favian Hernández, DO - 03/31/2018 9:43 AM CDTFormatting of this note may be different from the original. DAILY PROGRESS NOTE Esthela Beach is a 82yr old female admitted on 03/28/2018 12:55 PM. 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 No pain. Awaits surgery this afternoon. Review of Systems Review of Systems Constitutional: Negative for chills, fatigue and fever. Respiratory: Negative for shortness of breath. Cardiovascular: Negative for chest pain. Gastrointestinal: Negative for abdominal pain. Genitourinary: Negative for difficulty urinating. Musculoskeletal: Positive for back pain and gait problem. Skin: Negative for pallor. Allergic/Immunologic: Negative for immunocompromised state. Neurological: Negative for headaches. Hematological: Does not bruise/bleed easily. Psychiatric/Behavioral: Negative for agitation, behavioral problems and confusion. Physical Exam Vital Signs: Temp: 97.8 F (36.6 C) | BP: 152/90 | Pulse: 95 | Resp: 16 | Pain Ratin (out of 10) | Weight: 73.4 kg (161 lb 13.1 oz) | O2 Device: Room Air | SpO2: 99 % Maximum Temperatures (last 24 hours) Temperature Maximum Max Temp 98.3 F (36.8 C) Intake and Output: 03/30 0700 - 03/31 0659 In: 1749 [Oral:1540] Out: 0 Physical Exam Constitutional: She is oriented to person, place, and time. She appears well- nourished. No distress. HENT: Poor dentition Cardiovascular: Normal rate and regular rhythm. Pulmonary/Chest: No respiratory distress. Abdominal: There is no tenderness. Musculoskeletal: She exhibits tenderness. She exhibits no edema. Neurological: She is alert and oriented to person, place, and time. Skin: Skin is warm and dry. Psychiatric: She has a normal mood and affect. Her behavior is normal. Labs Labs (Last day) 03/31/18 0850 - 03/30/18 1453 BLOOD BANK 03/31/18 0850 03/30/18 1453 BLOOD BANK ABO Type A Rh Type Positive Antibody Screen Negative Expiration Date 04/03/2018 23:59 Extra Tube For BB - Received 03/30/18 1051 - 03/30/18 1051 GENERAL COAGULATION 03/30/18 1051 GENERAL COAGULATION Protime 12.0-14.5 (secs) 14.1 INR 2.0-3.5 1.1 03/31/18 0315 - 03/31/18 0315 THERAPEUTIC DRUGS MISC 03/31/18 0315 THERAPEUTIC DRUGS MIS Vancomycin Trough 10.0-20.0 (ug/mL) 13.0 Medical Decision making Medical Decision MakingSimone Faustin MD - 03/31/2018 7:04 AM CDTPatient had risks and benefits of operative intervention explained to and understood by him. These were inclusive but not exclusive of deep vein thrombosis, pulmonary embolism, bleeding and transfusion, leg length discrepancy, loss of motion, loss of function, failure of implants, infection, and treatment of, neurovascular or bony compromise with insertion and/or removal of implants, and associated medical risks of the operation. The hope is to cure the infection. The patient understands 2 or multiple operations may be required. The hope is to maintain mobility while treating the infection.Prisca Hanley, [facility] - 03/31 5:30 AM CDTFormatting of this note may be different from the original. Ms. Beach continues on Vancomycin per pharmacy protocol for Right hip prosthetic joint infection. The patient is on day 4 of receiving Vancomycin and current dose is (dose/ interval): 1000mg every 18hours. Labs: WBC Date/Time Value Ref Range Status 03/30/2018 06:26 AM 4.4 4.0 - 11.0 K/uL Final 03/29/2018 06:23 AM 4.9 4.0 - 11.0 K/uL Final 03/26/2018 07:35 PM 6.4 4.0 - 11.0 K/uL Final 01/04/2015 07:26 AM 6.3 4.0 - 11.0 K/uL Final 12/24/2014 09:53 AM 3.6 (L) 4.0 - 11.0 K/uL Final 07/14/2014 08:17 AM 4.1 4.0 - 11.0 K/uL Final Lab Results Component Value Date CREATSERUM 0.70 03/29/2018 CREATSERUM 0.78 03/26/2018 CREATSERUM 0.70 01/17/2018 Vancomycin Trough Date/Time Value Ref Range Status 03/31/2018 03:15 AM 13.0 10.0 - 20.0 ug/mL Final Cultures: Lab Results Component Value Date CULTGROWTH No Growth - Will continue to monitor for 5 days. 03/28/2018 Max Temperature: Temp (24hrs), Av F (36.7 C), Min:97.8 F (36.6 C), Max:98.3 F (36.8 C) Estimated CrCl: Estimated Creatinine Clearance: 56.7 mL/min (based on Cr of 0.7) . ml/min Intake/Output: Intake/Output Summary (Last 24 hours) at 03/31/18 0530 Last data filed at 03/30/18 1956 Gross per 24 hour Intake 1749 ml Output 0 ml Net 1749 ml Other Active Antimicrobials: Antibiotics Start Stop Route Frequency Ordered 03/28/181999 vancomycin in dextrose 200 mL IV piggyback (premix) 1,000 mg -- IV Every eighteen hours 03/28/18 1936 Assessment/Plan: The trough level is within the desired goal of 10-20 mg/L. Vancomycin will be continued at current dose/interval. Pharmacy will continue to monitor per the pharmacokinetic service policy. Prisca Hanley, [facility] Kelley Allen MD - 03/30/2018 10:03 AM [facility] Medicine Progress note: Exam date: 03/30/2018 CC: 82-year-old female admitted with prosthetic joint infection right total hip arthroplasty and staph lugdunensis bacteremia. Interval History: Transferred from [facility] to [facility] for revision surgery by orthopedics team on 03/31/2018. No new complaints. Review of system: General: No fever, no chills. Respiratory: No cough. No sob Cardiovascular: No chest pain, No palpitation Abdomen: No abdominal pain, No distension Genitourinary:No dysuria,foulsmelling urine. Neuro:No headache. No dizziness. Pshyciatry: No severe mood swings Examination: Constitutional:Vitals Reviewed and No acute distress. Head/ENT: atraumatic normocephalic. Hearing grossly intact. External ear/nose normal. Eyes:PERRLA,EOM intact. Respiratory: bilateral breath sound present. No wheeze, no crackles , no ronchi. Cardiovascular: S1 S2 heard, regular. No murmer. Abdomen: soft , nontender, BS present. Neuro: awake, moving extremities grossly , speech normal. Psychiatric:No anxiety or psychosis noted. Skin: No rash Labs: Reviewed. 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 Background Hip surgery history-Right total hip arthroplasty 05/29/[address] Jensen for management of displaced femoral fracture. Subsequent right total hip arthroplasty revision late January [address]Mark Raymond. Hypertension. Dyslipidemia. Mitral regurgitation. COPD. Plan: Continue IV vancomycin. ID team on board. Plan for revision arthroplasty on . No Lovenox subcutaneous injection for tonight. Continue hydrochlorothiazide daily. Gentle hydration to start from midnight. Continue oxybutynin for bladder instability. Not on any medications for COPD or Dyslipidemia at this point. Use albuterol when necessary. Follow further PT OT post procedure. Updated son over the phone. Cordell Cantor PA - 03/29/2018 2:09 PM CDTFormatting of this note may be different from the original. Orthopedic Daily Progress Note Assessment: Esthela Beach is a 82yr old female 1. Infected right HERMINIO revision, aspirate 03/27 + staph lugdunensis 2. PMH right HERMINIO 05/29/[address] Jerry Jensen secondary to displaced femoral neck fracture 3. Right HERMINIO revision (all implants revised except femoral stem), late January [address] Javi Raymond 4. Staph lugdunensis bacteremia, blood cx 09/03 + 03/26 5. HTN 6. COPD 7. Valvular heart disease, MR 8. Overactive bladder 9. Osteoporosis 10. 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 Discussed right hip treatment options again with Esthela. She's talked things over with her family and has decided to pursue surgery as previously discussed for stage I right HERMINIO revision. This isscheduled for Saturday, 2017 @ [facility], likely mid to late morning. Surgery, risks, complications, alternatives, and benefits were again discussed with Esthela. All of her questions were addressed. 2. Activity as tolerated pre-op, with her walker 3. IV abx per ID, currently getting Vancomycin 1g q18h. Awaiting sensitivities for Staph lugdunensis 4. Hold Loveonx after Saturday evening (end date already ordered via [employer]) 5. Type and screen completed. Will order 2 units of PRBCs to be available for Saturday's surgery. Pre-op orders are completed 6. Ok to transfer to [facility] at any point this weekend per ortho team. Dr. Faustin will plan to meet with Esthela directly Saturday. Subjective: No acute events. Reports adequate pain control. Continues to mobilize with her seated 4w walker without difficulty or increased pain. Objective: BP 134/86 | Pulse 85 | Temp 98 F (36.7 C) | Resp 16 | Ht 1.651 m (5' 5") | Wt 73.4 kg (161 lb 13.1 oz) | SpO2 98% | BMI 26.93 kg/m2 Maximum Temperatures (last 24 hours) Temperature Maximum Max Temp 98 F (36.7 C) Intake and Output: 03/28 0700 - 03/29 0659 In: 229 Out: - General: A&O x3, all 4's NVI, NAD, respirations unlabored. Exam: right lower extremity: right EHL/FHL 5/ str. Tolerates gentle A/PROM right hip with minimal discomfort. Right knee/ankle remain non-tender Lab Results Component Value Date WBC 4.9 03/29/2018 RBC 3.85 03/29/2018 HEMOGLOBIN 10.4 (L) 03/29/2018 HEMATOCRIT 32.9 (L) 03/29/2018 MCV 85.5 03/29/2018 MCH 27.0 03/29/2018 MCHC 31.6 03/29/2018 RDW 13.6 11/15/2012 PLTCOUNT 270 03/29/2018 NEUTROPCT 64.7 03/29/2018 LYMPHSPCT 22.5 03/29/2018 MONOSPCT 9.9 03/29/2018 EOSPCT 2.5 03/29/2018 BASOPHILPCT 0.4 03/29/2018 Lab Results Component Value Date PT 10.1 05/29/2015 INR 0.9 (L) 05/29/2015 03/26/18: ESR 108 03/25/18: ESR 86 03/25/18: CRP 111 Micro: 03/28/18 blood cultures x2: pending 03/27/18 right hip aspirate: + staph lugdunensis, sensitivity pending 03/26/18 blood cultures 1/2 + staph lugdunensisGamaliel Dai MD - 03/29/2018 11:41 AM CDTFormatting of this note may be different from the original. DAILY PROGRESS NOTE Esthela Beach is a 82yr old female admitted on 03/28/2018 12:55 PM. 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 No leukocytosis, fevers. Procal is low. Has elevated ESR and CRP. - ID is following and started patient on vancomycin and repeat BC - Ortho is following and planning to take patient to for part I of revision on 03/31/18 - working on getting patient transferred to today Preop assessemtent: Patient RCRI score is 0, and there is 0.4 % chance risk for developing major cardiac even intraoperatively. MET score is=/>4. Patient is at moderate risk for this surgical procedure. No history of bleeding disorders, no prior cardiac history. Last ECHO in 02/17/2018 showed ejection fraction of 65% with mild mitral regurgitation. Chronic problems: Hypertension- hydrochlorothiazine 25 mg COPD - not using meds Mitral regurgitation - Squamous cell carcinoma perianal region - no active treatment Chronic pain - aspirin 650 Overactive bladder - oxybutinin Osteoporosis - danosumab, citracal - vit D3 CODE: FULL DVT prophylaxis: SCDs Diet: regular NPO past midnight Disposition: home Interval History HPI No acute events overnight. She is ambulating with a walker, had pain in the right hip controled withpain meds. No issues with urination or BM. Tolerating diet well. Started on vancomycin, ID is following. Planned surgery on Saturday at , followed by ortho. No new concerns. Review of Systems Review of Systems Constitutional: Negative for appetite change, chills, fatigue and fever. Respiratory: Negative for cough, chest tightness, shortness of breath and wheezing. Cardiovascular: Negative for chest pain and leg swelling. Genitourinary: Negative for difficulty urinating and dysuria. Musculoskeletal: Continues to complain of hip pain Neurological: Negative for dizziness and light-headedness. Physical Exam Vital Signs: Temp: 98 F (36.7 C) | BP: 134/86 | Pulse: 85 | Resp: 16 | Pain Ratin (out of 10) | Weight: 73.4 kg (161 lb 13.1 oz) | O2 Device: Room Air | SpO2: 98 % Maximum Temperatures (last 24 hours) Temperature Maximum Max Temp 98 F (36.7 C) Intake and Output: 03/28 0700 - 03/29 0659 In: 229 Out: - Physical Exam Constitutional: She is oriented to person, place, and time. She appears well- developed and well-nourished. No distress. Cardiovascular: Normal rate and regular rhythm. Pulmonary/Chest: Effort normal and breath sounds normal. No respiratory distress. She has no wheezes. She has no rales. Abdominal: Soft. Bowel sounds are normal. She exhibits no distension. Musculoskeletal: She exhibits no edema. Neurological: She is alert and oriented to person, place, and time. Skin: She is not diaphoretic. Labs Reviewed Medical Decision making Medical Decision Making Gamaliel Dai MD Internal Medicine Resident, PGY-3 Pager # [phone] Associated attestation - Linnette Rao MD - 04/01/2018 2:42 PM CDTI discussed the patient with the resident and personally interviewed and examined the patient. I agree with the resident's diagnosis and management. Merly Lewis, PHARM D - 03/28/2018 7:38 PM CDTFormatting of this note may be different from the original. Vancomycin Initial Consult Note Ms. 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 Labs: No results found for: OPAL WBC Date/Time Value Ref Range Status 03/26/2018 07:35 PM 6.4 4.0 - 11.0 K/uL Final 01/04/2015 07:26 AM 6.3 4.0 - 11.0 K/uL Final Lab Results Component Value Date CREATSERUM 0.78 03/26/2018 Max Temperature: Temp (24hrs), Av F (36.7 C), Min:98 F (36.7 C), Max :98 F (36.7 C) Estimated CrCl: Estimated Creatinine Clearance: 50.9 mL/min (based on Cr of 0.78 ). ml/min Intake/Output: No intake or output data in the 24 hours ending 03/28/181941 Other Active Antimicrobial Agents: Plan: We have initiated intravenous Vancomycin therapy at a dose of 1,000 mg every 18 hours. The goal trough range will be 10-15 mcg/ml. Pharmacy will monitor and if indicated, adjust dose and/or frequency per the Pharmacy and Therapeutics Committee approved pharmacokinetic service policy. Thank you very much for the consult. We will continue to follow along with you. Merly Lewis, PHARM D Cordell Cantor PA - 03/28/2018 4:44 PM CDTFormatting of this note may be different from the original. Orthopedic Daily Progress Note Assessment: Esthela Beach is a 82yr old female 1. Infected right HERMINIO revision, aspirate 03/27 + staph lugdunensis 2. PMH right HERMINIO 05/29/[address] Jerry Jensen secondary to displaced femoral neck fracture 3. Right HERMINIO revision (all implants revised except femoral stem), late January [address] Javi Raymond 4. Staph lugdunensis bacteremia, blood cx / + 03/26 5. HTN 6. COPD 7. Valvular heart disease, MR 8. Overactive bladder 9. Osteoporosis 10. 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 Discussed Esthela's right hip with her at length including conservative and operative treatment options. She is now fully aware of her / 2 blood cultures and + right hip aspirate. She is currently not having much right hip pain, but reports intermittent severe right hip pain for thepast year. This would suggest low grade right HERMINIO infection dating back to her last HERMINIO revision surgery in late January 2017. She is not currently clinically sick appearing and remains independently functional with her seated 4w walker. She remains able to stand and walk without any obvious discomfort or difficulty. Treatment options for the right hip would include: 1. Conservative treatment with IV abx now, followed by life-long oral suppressive abx, which would clear her blood, but not cure her right HERMINIO infection. This would be pursued if she is not interestedin pursuing surgery or infection cure for the hip. 2. Stage I right HERMINIO revision with complete extirpation of her right HERMINIO implants and re-implantation of antibiotic coated HERMINIO implants followed with 6 weeks IV abx, then oral suppressive abx. +/- additional staged revision(s) in the future pending infection status, function, and pain. Explained the above options in detail. At this point, she is not sure if she wants to pursue surgery and would like some time to consider her options. Surgery would be performed by Dr. Simone Faustin, who is currently out of town. Earliest surgical availability would be 03/31/18, at [facility]. We've taken the liberty of scheduling her surgery for Saturday to secure a date/time, in the event that she chooses to pursue infection cure for the hip. Discussed the operative procedure in detail including possible risks, complications, alternatives, and benefits. Increased risks & complications of this procedure would include, but are not limited to, pain, swelling, DVT/PE , acute blood loss requiring transfusion of blood products, nerve injury, implant failure/wear, stroke, heart attack, , wound healing complications, and infection. We then discussed gabbie-operative hospital course and post- hospital discharge, rehab, and recovery. We anticipate at least 3 overnights hospital stay post-op, with need for PT & OT evaluations for strengthening, ADL, gait & transfer training. Explained that she may require up to 2 years post-operatively to determine definitive infection cure. Following my conversation with Esthela, I then spoke to her Daughter, Mishel Thompson, at [phone]. Mishel is one of 6 siblings. Explained all of the above to her in detail and delegated her to discuss with the rest of her family as well. Duration of phone call: 22 minutes Subjective: No acute events. Concerned about having to return to the hospital regarding infection. Interval history includes hospital admit on 03/26/18 due to elevated labs concerning for infection. 1/2 + blood cultures dated 03/26 and + right hip aspirate dated 03/27 growing Staph lugdunensis. She was discharged to home 03/27 in lieu of conservative treatment prior to culture information. She was called and requested to be re-admitted following culture positive information to establish IV abx therapy. Objective: BP 143/90 | Pulse 98 | Temp 98 F (36.7 C) | Resp 17 | Ht 1.651 m (5' 5") | Wt 73.4 kg (161 lb 13.1 oz) | SpO2 100% | BMI 26.93 kg/m2 Maximum Temperatures (last 24 hours) Temperature Maximum Max Temp 98 F (36.7 C) Intake and Output: General: A&O x3, all 4's NVI. NAD, Respirations unlabored. Corrective lenses noted. + full upper dentures. Partial lower dentures. Exam: right lower extremity: old anterior and posterior scars are fully healed with no obvious ecchymosis or edema. No erythema. Mild TTP overlying the GT and ASIS. Mild TTP to deep palpation along the posterior gluteal region and right lower lumbar region. Right knee & ankle remain non-tender. Right hip ROM is preserved with some tenderness at extremes of IR/ER. Negative Estrella' s. EHL/FHL 01/04 str. Brisk CR. SILT distally. Lab Results Component Value Date WBC 6.4 03/26/2018 RBC 4.15 03/26/2018 HEMOGLOBIN 11.3 (L) 03/26/2018 HEMATOCRIT 35.8 03/26/2018 MCV 86.3 03/26/2018 MCH 27.2 03/26/2018 MCHC 31.6 03/26/2018 RDW 13.6 11/15/2012 PLTCOUNT 338 03/26/2018 NEUTROPCT 69.1 03/26/2018 LYMPHSPCT 21.6 03/26/2018 MONOSPCT 6.9 03/26/2018 EOSPCT 1.9 03/26/2018 BASOPHILPCT 0.5 03/26/2018 Lab Results Component Value Date PT 10.1 05/29/2015 INR 0.9 (L) 05/29/2015 03/26/18: ESR 108 03/25/18: ESR 86 03/25/18: CRP 111 Micro: 03/27/18 right hip aspirate: + staph lugdunensis 03/26/18 blood cultures 1/2 + staph lugdunensisin this encounter Plan of Treatment Date Type Specialty Care Team Description 04/17/2018 Office Visit Orthopedics Simone Faustin MD [address] [place] [address] [phone] 05/20/2018 Office Visit Infectious Diseases Collin Schrader MD [address] [place] [address] [phone] 06/18/2018 Office Visit Family Practice Lauren Vidal PA-C [address] [place] [address] [phone] Name Priority Associated Diagnoses Date/Time CULTURE BACTERIAL, Routine Infected prosthesis of 03/31/2018 11:21 AM CDT ANAEROBE right hip CULTURE BACTERIAL, Routine Infected prosthesis of 03/31/2018 12:08 PM CDT ANAEROBE right hip CULTURE BACTERIAL, Routine Infected prosthesis of 03/31/2018 12:09 PM CDT ANAEROBE right hip CULTURE, ACID FAST Routine Infected prosthesis of 03/31/2018 12:08 PM CDT BACILLUS WITH STAIN right hip CULTURE FUNGAL, OTHER Routine Infected prosthesis of 03/31/2018 12:08 PM CDT right hip CULTURE FUNGAL, OTHER Routine Infected prosthesis of 03/31/2018 12:09 PM CDT right hip CULTURE BACTERIAL, OTHER Routine Infected prosthesis of 03/31/2018 11:21 AM CDT WITH GRAM STAIN right hip CULTURE BACTERIAL, OTHER Routine Infected prosthesis of 03/31/2018 12:08 PM CDT WITH GRAM STAIN right hip TISSUE EXAM Routine Infected prosthesis of 03/31/2018 12:08 PM CDT right hip Name Priority Associated Diagnoses Order Schedule CULTURE BACTERIAL, Routine Infected prosthesis of ONCE for 1 Occurrences ANAEROBE right hip starting 03/31/2018, 1 completed CULTURE BACTERIAL, Routine Infected prosthesis of ONCE for 1 Occurrences ANAEROBE right hip starting 03/31/2018, 1 completed CULTURE BACTERIAL, Routine Infected prosthesis of ONCE for 1 Occurrences ANAEROBE right hip starting 03/31/2018, 1 completed CULTURE FUNGAL, OTHER Routine Infected prosthesis of ONCE for 1 Occurrences right hip starting 03/31/2018, 1 completed CULTURE FUNGAL, OTHER Routine Infected prosthesis of ONCE for 1 Occurrences right hip starting 03/31/2018, 1 completed TISSUE EXAM Routine Infected prosthesis of ONCE for 1 Occurrences right hip starting 03/31/2018, 1 completed Health Maintenance Due Date Last Done Comments Influenza Vaccine (#1) 2018 06/07/2017, 06/28/2016, 06/03/2015, Additional history exists Zoster Vaccine (2 of 3 - 01/16/2019 05/28/2013 Postponed from Mixed Series (ZVL first) - 07/28/2013 (Insurance / [employer]) Financial) DEXA/Heel Scan 07/18/2019 07/18/2017, 07/18/2017 (Previously completed), 07/07/2015, Additional history exists Diabetes Screening 04/01/2021 04/01/2018, 03/29/2018, 03/26/2018, Additional history exists Colonoscopy 08/08/2022 08/08/2017, 01/15/2014, 01/15/2014 Tetanus Vaccine 03/28/2026 03/28/2016, 08/08/1999, 08/08/1999 Pneumococcal 65yr+ Low/Med Completed 12/28/2015, 09/03/2001 Risk as of this encounter Goals Patient Goal Type Goal Recent Progress Patient-Stated? Author Blood Pressure Blood Pressure < 125/64 (04/02/2018 No Yaima Kim, 140/90 11:46 PM CDT) RN as of this encounter Implants Implanted Type Area Senior Java Software Engineer Device Expiration Model / Identifier Date Serial / Lot Log [id number] - Synthes Distal Radius Locking Ss Set Smf - 1 - Screw Oliver Synt 2.7x14mm N 202.874 Ea Ortho Right: J&J DEPUY 202.874 / Implanted: Qty: 1 on 11/14/2012 Other WRIST SYNTHES / Log [id number] - Synthes Distal Radius Locking Ss Set Smf - 1 - Screw Oliver Synt 2.7x16mm N 202.876 Ea Ortho Right: J&J DEPUY 202.876 / Implanted: Qty: 1 on 11/14/2012 Other WRIST SYNTHES / [id number] Log [id number] - Synthes Distal Radius Locking Ss Set Smf - 1 - Screw Oliver Synt 2.7x22mm N 202.882 Ea Ortho Right: J&J DEPUY 202.882 / Implanted: Qty: 1 on 11/14/2012 Other WRIST SYNTHES / [id number] Log 660681 - Synthes Distal Radius Locking Ss Set Smf - 1 - Plate T Dist Rad Synt 4hl N 242.478 Ea Ortho Right: J&J DEPUY 242.478 / Implanted: Qty: 1 on 11/14/2012 Other WRIST SYNTHES / [id number] Hip Cup Sebastien Trit Solidbk 50mm N 500-03-50d Ea - [id number] Total Jt Right: RUT 05/02/2019 500-03-50D / Implanted: Qty: 1 on 05/29/2015 by Jerry Jensen MD Hip HIP / [id number] Cmnt Bone Cmnt-R W Gentamicin N [id number] Ea1 - Sn/A Right: LALITA 03/01 [id number] / Implanted: Qty: 1 on 03/31/2018 by Simone Faustin MD FEMUR N/A / [id number] Cmnt Bone Cmnt-R W Gentamicin N [id number] Ea1 - Sn/A Right: LALITA 03/01 [id number] / Implanted: Qty: 1 on 03/31/2018 by Simone Faustin MD FEMUR N/A / [id number] Hip Lnr E1 Pe Neut 44mm Szh N [id number] Ea1 - Sn/A Right: LALITA [id number] / Implanted: Qty: 1 on 03/31/2018 by Simone Faustin MD HIP N/A / [id number] Cmnt Bone Cmnt-R 1x40 N [id number] Ea - Sn/A Right: LALITA 05/02/2022 [id number] / Implanted: Qty: 1 on 03/31/2018 by Simone Faustin MD FEMUR N/A / [id number] Hip Stem [facility] [id number] N .98736.914 Ea - Sn/A Right: LALITA .78135.914 / Implanted: Qty: 1 on 03/31/2018 by Simone Faustin MD FEMUR N/A / [id number] Hip Hd G7 Biolox Opt Cer 36mm N 650-1059 Ea - Sn/A Right: LALITA 2026 650-1059 / Implanted: Qty: 1 on 03/31/2018 by Simone Faustin MD HIP N/A / [id number] One Of A Kind Implant - Sn/A Right: BIOMET 10/08/2026 650-1061 / Implanted: Qty: 1 on 03/31/2018 by Simone Faustin MD HIP N/A / [id number] Cbl Surg Huseyin Herr Stry 2mm N 6704-0-510 Ea - Sn/A Right: RUT 6704-0-510 / Implanted: Qty: 1 on 03/31/2018 by Simnoe Faustin MD FEMUR N/A / [id number] Explanted Type Area Senior Java Software Engineer Device Expiration Model / Identifier Date Serial / Lot Hip Acet Lnr Tridstry Szd 36mm N 623-00-36d Ea - [id number] Total Jt Right: RUT 05/02/2020 623-00-36D / Implanted: Qty: 1 on 05/29/2015 by Jerry Jensen MD Hip HIP / Explanted: Qty: 1 on 03/31/2018 by Simone Faustin MD [id number] Hip Fem Stem Acldii Stry 127#4 N 7511-6989 Ea - [id number] Total Jt Right: RUT 01/31/2020 8312-1234 / Implanted: Qty: 1 on 05/29/2015 by Jerry Jensen MD Hip HIP / Explanted: Qty: 1 on 03/31/2018 by Simone Faustin MD [id number] Hip Fem Head V40 Lfit 36mm/+5 N 6260-9-236 Ea - [id number] Total Jt Right: RUT 08/01/2019 6260-9-236 / Implanted: Qty: 1 on 05/29/2015 by Jerry Jensen MD Hip HIP / Explanted: Qty: 1 on 03/31/2018 by Simone Faustin MD [id number] as of this encounter Procedures Procedure Name Priority Date/Time Associated Comments Diagnosis HEMOGLOBIN Routine 04/02/2018 4:44 Results for this AM CDT procedure are in the results section. HEMOGLOBIN Routine 04/01/2018 5:31 Results for this AM CDT procedure are in the results section. BASIC METABOLIC PANEL Routine 04/01/2018 5:31 Results for this AM CDT procedure are in the results section. COLLECT AND HOLD SST Routine 03/31/2018 8:50 Results for this TOP TUBE AM CDT procedure are in the results section. COLLECT AND HOLD Routine 03/31/2018 8:50 Results for this LAVENDER (EDTA) TOP AM CDT procedure are in TUBE the results section. COLLECT AND HOLD Routine 03/31/2018 8:50 Results for this POSSIBLE CROSSMATCH AM CDT procedure are in TUBE the results section. VANCOMYCIN TROUGH Timed Routine 03/31/2018 3:15 Results for this AM CDT procedure are in the results section. PROTIME/INR Routine 03/30/2018 10:51 Results for this AM CDT procedure are in the results section. COLLECT AND HOLD Routine 03/30/2018 6:26 Results for this GREEN TOP TUBE AM CDT procedure are in the results section. COMPLETE BLOOD COUNT Routine 03/30/2018 6:26 Results for this WITHOUT DIFFERENTIAL AM CDT procedure are in the results section. LAB ONLY-COMPLETE Routine 03/29/2018 6:23 Results for this BLOOD COUNT WITH AM CDT procedure are in DIFFERENTIAL the results section. PROCALCITONIN Routine 03/29/2018 6:23 Results for this AM CDT procedure are in the results section. LACTIC ACID Routine 03/29/2018 6:23 Results for this AM CDT procedure are in the results section. RENAL FUNCTION PANEL Routine 03/29/2018 6:23 Results for this AM CDT procedure are in the results section. COMPLETE BLOOD COUNT Routine 03/29/2018 6:23 Results for this WITH DIFFERENTIAL AM CDT procedure are in the results section. in this encounter Results HEMOGLOBIN (04/02/2018 4:44 AM) Component Value Ref Range Hemoglobin 8.1 (L) 11.5 - 15.8 g/dL Specimen Performing Laboratory Blood [address] [place] [address] BASIC METABOLIC PANEL (04/01/2018 5:31 AM) Component Value Ref Range Glucose 127 (H) 70 - 100 mg/dL BUN 20 6 - 22 mg/dL Creatinine 0.99 0.60 - 1.10 mg/dL BUN/Creatinine Ratio 20.2 10.0 - 25.0 Sodium 141 135 - 145 meq/L Potassium 5.2 3.5 - 5.3 meq/L Chloride 106 99 - 110 meq/L CO2 27 20 - 29 meq/L Anion Gap with K 13 6 - 20 meq/L Calcium 8.4 (L) 8.5 - 10.5 mg/dL Age 82 Years eGFR Non- 54 (L) >=60 mL/min/1.73m2 eGFR 65 >=60 mL/min/1.73m2 Specimen Performing Laboratory Blood [place] [address] [facility] [place] [address] HEMOGLOBIN (04/01/2018 5:31 AM) Component Value Ref Range Hemoglobin 7.2 (L) 11.5 - 15.8 g/dL Specimen Performing Laboratory Blood [place] [address] [facility] [place] [address] XRAY PELVIS 1 OR 2 VIEWS (03/31/2018 1:47 PM) Specimen Performing Laboratory PS360 Narrative Patient Name: ESTHELA BEACH Date of :1935 Procedure: XRAY PELVIS 1 OR 2 VIEWS Date of Service: 03/31/2018 EXAM: XRAY PELVIS 1 OR 2 VIEWS INDICATION: sp right HERMINIO revision COMPARISON(S): 03/03/2018 FINDINGS/IMPRESSION: Postoperative change right hip revision. Alignment is near-anatomic. No perihardware fracture or malalignment. Postoperative material projects medial to right iliopectineal line. Correlate with desired positioning. Finalized by: Gurwinder Vidal DO on 03/31/2018 1:56 PM Patient/Procedure Information: [facility] MRN/JOE: [id number] Order Number: [id number] Accession Number: [id number] Ordering Provider: SANDRA DICKERSON Authorizing Provider: SANDRA DICKERSON Procedure Note Interface, Radiantres - 03/31/2018 1:58 PM CDT Patient Name: ESTHELA BEACH Date of : 1935 Procedure: XRAY PELVIS 1 OR 2 VIEWS Date of Service: 03/31/2018 EXAM: XRAY PELVIS 1 OR 2 VIEWS INDICATION: sp right HERMINIO revision COMPARISON(S): 03/03/2018 FINDINGS/IMPRESSION: Postoperative change right hip revision. Alignment is near -anatomic. No perihardware fracture or malalignment. Postoperative material projects medial to right iliopectineal line. Correlate with desired positioning. Finalized by: Gurwinder Vidal DO on 03/31/2018 1:56 PM Patient/Procedure Information: [facility] MRN/JOE: [id number] Order Number: [id number] Accession Number: [id number] Ordering Provider: SANDRA DICKERSON Authorizing Provider: SANDRA DICKERSON CULTURE BACTERIAL, OTHER WITH GRAM STAIN (03/31/2018 12:09 PM) Component Value Ref Range Culture Result No growth Gram Stain Many (>25/LPF) WBC's Gram Stain Many (>25/LPF) RBC's Gram Stain No epithelial cells seen Gram Stain No organisms seen Specimen Performing Laboratory Tissue - Hip [address] [place] [address] COLLECT AND HOLD SST TOP TUBE (03/31/2018 8:50 AM) Component Value Ref Range Collect and Hold Specimen Status Comment: RECEIVED Specimen Performing Laboratory Blood [facility] [address] [place] [place] [address] COLLECT AND HOLD LAVENDER (EDTA) TOP TUBE (03/31/2018 8:50 AM) Component Value Ref Range Collect and Hold Specimen Status Comment: RECEIVED Specimen Performing Laboratory Blood [facility] [address] [facility] [place] [address] COLLECT AND HOLD POSSIBLE CROSSMATCH TUBE (03/31/2018 8:50 AM) Component Value Ref Range Extra Tube For BB - Received Specimen Performing Laboratory Blood [facility] [address] [place] [address] VANCOMYCIN TROUGH (03/31/2018 3:15 AM) Component Value Ref Range Vancomycin Trough 13.0 10.0 - 20.0 ug/mL Specimen Performing Laboratory Blood [address] [address] PROTIME/INR (03/30/2018 10:51 AM) Component Value Ref Range Protime 14.1 12.0 - 14.5 secs INR 1.1 (L) 2.0 - 3.5 Specimen Performing Laboratory Blood [facility] [address] [facility] [place] [address] Narrative Normal INR reference range (patients not on oral anticoagulants)0.9-1.1. INR Standard Intensity=(2.0 - 3.0) INR Higher Intensity=(2.5 - 3.5) COLLECT AND HOLD GREEN TOP TUBE (03/30/2018 6:26 AM) Component Value Ref Range Collect and Hold Specimen Status Comment: RECEIVED Specimen Performing Laboratory Blood [facility] [address] [facility] [place] [address] COMPLETE BLOOD COUNT WITHOUT DIFFERENTIAL (03/30/2018 6:26 AM) Component Value Ref Range WBC 4.4 4.0 - 11.0 K/uL RBC 3.84 3.80 - 5.30 M/uL Hemoglobin 10.3 (L) 11.5 - 15.8 g/dL Hematocrit 33.3 (L) 35.0 - 45.0 % MCV 86.7 80.0 - 98.0 fL MCH 26.8 25.5 - 34.0 pg MCHC 30.9 (L) 31.5 - 36.5 g/dL RDW-CV 15.0 11.5 - 15.5 % RDW-SD 46.5 35.5 - 50.0 fl Platelet Count 342 140 - 400 K/uL MPV 8.7 8.5 - 12.0 fL Specimen Performing Laboratory Blood [facility] [address] [place] [place] [address] LAB ONLY-COMPLETE BLOOD COUNT WITH DIFFERENTIAL (03/29/2018 6:23 AM) Component Value Ref Range WBC 4.9 4.0 - 11.0 K/uL RBC 3.85 3.80 - 5.30 M/uL Hemoglobin 10.4 (L) 11.5 - 15.8 g/dL Hematocrit 32.9 (L) 35.0 - 45.0 % MCV 85.5 80.0 - 98.0 fL MCH 27.0 25.5 - 34.0 pg MCHC 31.6 31.5 - 36.5 g/dL RDW-CV 14.8 11.5 - 15.5 % RDW-SD 45.8 35.5 - 50.0 fl Platelet Count 270 140 - 400 K/uL MPV 8.5 8.5 - 12.0 fL Seg Neut Absolute 3.1 1.8 - 8.0 K/uL Lymphocytes Absolute 1.1 0.8 - 4.1 K/uL Monocytes Absolute 0.5 0.0 - 1.0 K/uL Eosinophils Absolute 0.1 0.0 - 0.7 K/uL Basophil Absolute 0.0 0.0 - 0.2 K/uL Immature Granulocyte Absolute 0.01 0.00 - 0.06 K/uL Neutrophils Abs. (Segs and Bands) 3100 /uL Neutrophils Percent 64.7 % Lymphocytes Percent 22.5 % Monocytes Percent 9.9 % Immature Granulocyte Percent 0.2 % Eosinophils Percent 2.5 % Basophil Percent 0.4 % Specimen Performing Laboratory Blood [place] [address] [address], [place] [address] LACTIC ACID (03/29/2018 6:23 AM) Component Value Ref Range Lactic Acid 0.7 0.5 - 2.2 mmol/L Specimen Performing Laboratory Blood [address] [place] [address] PROCALCITONIN (03/29/2018 6:23 AM) Component Value Ref Range Procalcitonin 0.05 <0.07 ng/mL Specimen Performing Laboratory Blood [id number] [address] Narrative Suspected Lower Respiratory Tract Infection: 0.1-0.25: Low risk for bacterial infection; Antibiotics discouraged. > 0.25: Increased likelihood for bacterial infection; Antibiotics encouraged. Suspected Sepsis: 0.1-0.5: Low likelihood for sepsis; Antibiotics discouraged. > 0.5: Increased Likelihood for sepsis; Antibiotics encouraged. > 2.0: High risk of sepsis/septic shock; Antibiotics strongly encouraged. Decisions on antibiotic use should not be based solely on procalcitonin levels. If antibiotics are administered, repeat procalcitonin testing should be performed every 2-3 days to consider early antibiotic cessation. PCT is a dynamic biomarker and most useful when trends are analyzed over time in accompaniment with other clinical data. RENAL FUNCTION PANEL (03/29/2018 6:23 AM) Component Value Ref Range Glucose 102 (H) 70 - 100 mg/dL BUN 13 6 - 22 mg/dL Creatinine 0.70 0.60 - 1.10 mg/dL BUN/Creatinine Ratio 18.6 10.0 - 25.0 Sodium 144 135 - 145 meq/L Potassium 3.6 3.5 - 5.3 meq/L Chloride 106 99 - 110 meq/L CO2 30 (H) 20 - 29 meq/L Anion Gap with K 12 6 - 20 meq/L Calcium 9.3 8.5 - 10.5 mg/dL Phosphorus 2.8 2.5 - 4.5 mg/dL Albumin 3.3 (L) 3.5 - 5.0 g/dL Corrected Calcium 9.9 8.5 - 10.5 mg/dL Age 82 Years eGFR Non- 80 >=60 mL/min/1.73m2 eGFR >90 >=60 mL/min/1.73m2 Specimen Performing Laboratory Blood [address] [address] COMPLETE BLOOD COUNT WITH DIFFERENTIAL (03/29/2018 6:23 AM) Specimen Performing Laboratory Blood Narrative The following orders were created for panel order COMPLETE BLOOD COUNT WITH DIFFERENTIAL. Procedure Abnormality Status --------- ------ LAB ONLY-COMPLETE BLOOD ...[[id number]]AbnormalFinal result Please view results for these tests on the individual orders. CULTURE, BLOOD (03/28/2018 7:41 PM)Only the most recent of2 resultswithin the time period is included. Component Value Ref Range Culture Result No growth at 5 days Specimen Performing Laboratory Blood [address] [place] [address] in this encounter Visit Diagnoses Diagnosis Infected prosthetic hip, initial encounter - Primary Infected prosthesis of right hip Infection and inflammatory reaction due to internal joint prosthesis Chronic pain of right hip Bacteremia due to Gram-positive bacteria Bacteremia in this encounter Administered Medications Medication Order MAR Action Action Date Dose Rate Site acetaminophen (TYLENOL) tablet 650 mg Given 04/02/2018 18:52 CDT 650 mg 650 mg, Oral, Every six hours, First dose on Sat04/02/18 at 1200, Until Discontinued, Total dose of acetaminophen from all acetaminophen containing products should not exceed 4 grams (4000 mg) per day. Given 04/03/2018 05:48 CDT 650 mg Given 04/03/2018 12:01 CDT 650 mg bisacodyl (DULCOLAX) suppository 10 mg Given 04/03/2018 05:54 CDT 10 mg 10 mg, Rectal, One time a day prn, Starting Sat03/28/18 at 1436, Until Discontinued, constipation, Use SECOND for constipation. If patient cannot take oral medications, use first for constipation. calcium citrate-vitamin D (CITRACAL + VIT D) Given 04/02/2018 09:36 CDT 1 tablet 315 mg-250 unit tablet 1 tablet 1 tablet, Oral, Two times a day with meals, First dose on Sat03/28/18 at 1730, Until Discontinued, Give with food Given 04/02/2018 18:53 CDT 1 tablet Given 04/03/2018 09:40 CDT 1 tablet ceFAZolin (ANCEF) 2000 mg/20 mL sterile water Given 04/02/2018 18:37 CDT 2, 000 mg IV syringe 2,000 mg, IV, Every eight hours, First dose on Sat03/31/18 at 1000, Until Discontinued, 20 mL, Administer as IV push over 4 minutes. Given 04/03/2018 02:00 CDT 2,000 mg Given 04/03/2018 09:40 CDT 2,000 mg enoxaparin (LOVENOX) subcutaneous injection Given 04/01/2018 13:08 CDT 40 mg solution 40 mg 40 mg, Subcutaneous, Daily, First dose on Sat04/01/18 at 0900, Until Discontinued, To avoid the loss of drug when using the 30 mg and 40 mg prefilled syringes, do not expel the air bubble from the syringe before the injection. Administration should be alternated between the left and right anterolateral and left and right posterolateral abdominal wall. The whole length of the needle should be introduced into a skin fold held between the thumb and forefinger; the skin fold should be held throughout the injection. To minimize bruising, do not rub the injection site after completion of the injection. Given 04/02/2018 09:37 CDT 40 mg Given 04/03/2018 09:40 CDT 40 mg heparin 100 units/ mL injection for heplock Given 04/01/2018 16:01 CDT 300 Units FLUSH 300 Units (3 mL), IV, Every twelve hours, First dose on Sat04/01/18 at 1700, Until Discontinued, 3 mL, Routine flush twice a day or after meds. Flush with 10 mL 0.9% Sodium Chloride followed by 300 units heparin Given 04/03/2018 05:49 CDT 300 Units magnesium hydroxide (MILK OF MAGNESIA) oral Given 04/02/2018 18:53 CDT 30 mL suspension 30 mL 30 mL, Oral, One time a day prn, Starting Sat04/02/18 at 1449, Until Discontinued, constipation, 30 mL metoclopramide (REGLAN) inj soln 5 mg Given 03/31/2018 22:07 CDT 5 mg 5 mg, IV, Every six hours prn, Starting Sat03/28/18 at 1436, Until Discontinued, nausea, vomiting, 2 mL, Use SECOND. If ineffective and ondansetron used, call physician for alternative Given 04/01/2018 05:54 CDT 5 mg Given 04/02/2018 19:03 CDT 5 mg ondansetron (ZOFRAN) injection solution 4 mg Given 04/01/2018 01:42 CDT 4 mg 4 mg, IV, Every four hours prn, Starting Sat03/28/18 at 1436, Until Discontinued, nausea, vomiting, 2 mL, Use FIRST. If ineffective after 15 minutes use metoclopramide. Given 04/01/2018 13:10 CDT 4 mg Given 04/02/2018 15:30 CDT 4 mg oxybutynin (DITROPAN-XL) SR tablet (24 hr) 5 mg Given 04/01/2018 08:57 CDT 5 mg 5 mg, Oral, DAILY, First dose on Sat03/29/18 at 0900, Until Discontinued, Tablet should not be crushed or chewed. Given 04/02/2018 09:37 CDT 5 mg Given 04/03/2018 09:40 CDT 5 mg oxyCODONE (OXY-IR) tablet 5-10 mg Given 04/02/2018 10:20 CDT 10 mg 5-10 mg, Oral, Every four hours prn, Starting Sat03/31/18 at 1606, Until Discontinued, moderate pain, severe pain, Post - Op, For patients with moderate pain, pain rating of 4-6, give Oxycodone 5mg PO every 4 hours PRN. For patients with severe pain, pain rating of 7-10, give Oxycodone 10mg PO every 4 hours PRN. Given 04/02/2018 14:46 CDT 10 mg Given 04/03/2018 12:01 CDT 10 mg polyethylene glycol (MIRALAX) packet 1 packet Given 04/02/2018 18:55 CDT 1 packet 1 packet, Oral, Daily, First dose on Sat04/02/18 at 1450, Until Discontinued, Dissolve in 8 ounces of water, juice, soda, coffee, tea. rifAMPin (RIFADIN) capsule 300 mg Given 04/02/2018 09:37 CDT 300 mg 300 mg, Oral, Two times a day, First dose on Sat03/31/18 at 2240, Until Discontinued, Turns all body fluids red/orange. Given 04/02/2018 20:49 CDT 300 mg Given 04/03/2018 09:40 CDT 300 mg senna-docusate sodium (SENOKOT-S;PERICOLACE) Given 04/01/2018 20:56 CDT 2 tablets tablet 2 tablet 2 tablet, Oral, Two times a day prn, Starting Sat03/28/18 at 1436, Until Discontinued, constipation, Use FIRST for constipation unless patient cannot take oral medications. Given 04/02/2018 09:37 CDT 2 tablets Given 04/02/2018 18:52 CDT 2 tablets sodium chloride 0.9% flush (adult) 10 mL Given 04/02/2018 20:51 CDT 10 mL 10 mL, IV, Two times a day and prn, First dose on Sat03/31/18 at 2100, Until Discontinued, 10 mL, Post - Op, Flush IV line as scheduled and as often as necessary before and after meds. Given 04/03/2018 09:40 CDT 10 mL sodium chloride 0.9% prefilled 10 mL syringe Given 04/01/2018 16:01 CDT 10 mL (Materials Management Item) 10 mL 10 mL, IV, Every twelve hours, First dose on Sat04/01/18 at 1700, Until Discontinued, 10 mL, Routine flush twice a day or after meds. Flush with 10 mL 0.9% Sodium Chloride followed by 300 units heparin Given 04/03/2018 05:49 CDT 10 mL Medication Order MAR Action Action Date Dose Rate Site enoxaparin (LOVENOX) subcutaneous Given 03/28/2018 21:08 CDT 40 mg injection solution 40 mg 40 mg, Subcutaneous, Bedtime, 2 doses, First dose on Sat03/28/18 at 2100, Last dose on Sat03/29/18 at 2100, To avoid the loss of drug when using the 30 mg and 40 mg prefilled syringes, do not expel the air bubble from the syringe before the injection. Administration should be alternated between the left and right anterolateral and left and right posterolateral abdominal wall. The whole length of the needle should be introduced into a skin fold held between the thumb and forefinger; the skin fold should be held throughout the injection. To minimize bruising, do not rub the injection site after completion of the injection. Given 03/29/2018 20:38 CDT 40 mg fentaNYL 100 mcg/2 mL preservative free Given 03/31/2018 13:42 CDT 50 mcg injection solution 50 mcg 50 mcg, IV, Every five minutes prn, 6 doses, Starting Sat03/31/18 at 1238, Until Sat03/31/18 at 1432, moderate pain, severe pain, 2 mL, PACU, Max total dose 300 mcg. Use only anesthesia s orders for moderate/severe pain while in PACU or recovery care hydroCHLOROthiazide tablet 12.5 mg Given 03/29/2018 08:55 CDT 12.5 mg 12.5 mg, Oral, DAILY, First dose on Sat03/29/18 at 0900, Until Discontinued, Hold for SBP less than 100 Given 03/30/2018 09:37 CDT 12.5 mg HYDROmorphone (DILAUDID) injection solution Given 04/02/2018 00:24 CDT 0.25 mg (conc: 0.5 mg/0.5mL) 0.25 mg 0.25 mg, IV, Every two hours prn, Starting Sat03/28/18 at 1436, Until Sat04/02/18 at 1102, severe pain, for pain Scale 7 or greater or pain not relieved by medications for Pain Scale 4 to 6, 0.5 mL, Pain stratification is defined as follows for either analog scale (0-10) or critical care pain observation tool (CPOT, 0-8). a. No pain (0) b. Mild pain level (1-3) c. Moderate pain level (4-6) d. Severe pain level (greater than or equal to 7) HYDROmorphone (DILAUDID) injection solution Given 03/31/2018 13:16 CDT 0.5 mg (conc: 0.5 mg/0.5mL) 0.5 mg 0.5 mg, IV, Every ten minutes prn, 2 doses, Starting Sat03/31/18 at 1238, Until Discontinued, severe pain, other (Specify), Use for severe pain uncontrolled by Fentanyl.May continue to use hydromorphone once started as long as pain is rated as severe, 0.5 mL, PACU, Max total dose 1 mg. Use only anesthesia's orders for severe pain while in PACU or recovery care Given 03/31/2018 13:28 CDT 0.5 mg lactated ringers IV solution Already Infusing 03/31/2018 13:10 CDT 125 mL/hr IV, at 125 mL/hr, Continuous, Starting Sat03/31/18 at 1340, Until Sat03/31/18 at 1432, 1,000 mL, PACU, TKO current fluids if patient is going to Day Unit / ARU and tolerating PO fluids without nausea. sodium chloride 0.9% flush (adult) 10 mL Given 03/28/2018 21:10 CDT 10 mL 10 mL, IV, Two times a day and prn, First dose on Sat03/28/18 at 2100, Until Discontinued, 10 mL, Flush IV line as scheduled and as often as necessary before and after meds. Given 03/29/2018 08:55 CDT 10 mL Given 03/31/2018 17:18 CDT 10 mL sodium chloride 0.9% flush (adult) 10 mL Given 03/29/2018 20:38 CDT 10 mL 10 mL, IV, Two times a day and prn, First dose on Sat03/28/18 at 2100, Until Discontinued, 10 mL, Flush IV line as scheduled and as often as necessary before and after meds. Given 03/30/2018 09:34 CDT 10 mL Given 03/30/2018 21:16 CDT 10 mL sodium chloride 0.9% IV solution New Bag 04/01/2018 12:56 CDT 100 mL/hr IV, at 100 mL/hr, Continuous, Starting Sat03/31/18 at 1610, Until Sonya 04/03/18 at 0841, 1,000 mL, Post - Op New Bag 04/01/2018 23:14 CDT 100 mL/hr New Bag 04/02/2018 10:23 CDT 100 mL/hr traMADol (ULTRAM) tablet 50 mg Given 03/28/2018 23:21 CDT 50 mg 50 mg, Oral, Two times a day prn, Starting Sat03/28/18 at 1436, Until Sat04/01/18 at 1440, severe pain, Recommended maximum daily dose of nyeayyua=011 mg. Recommended maximum daily dose in patients 75 years or oemef=419 mg. Given 03/30/2018 05:27 CDT 50 mg Given 03/31/2018 19:05 CDT 50 mg vancomycin in dextrose 200 mL IV piggyback Given 03/29/2018 13:49 CDT 1,000 mg (premix) 1,000 mg 1,000 mg, IV, Every eighteen hours, First dose on Sat03/28/18 at 2000, Until Discontinued, 200 mL Given 03/30/2018 09:37 CDT 1,000 mg Given 03/31/2018 03:26 CDT 1,000 mg in this encounter
[2018-04-04] MEDS ORDERED: Enoxaparin 40 MG/0.4 ML Syringe SUBCUT SCH (08:00)
--- NOTE | 2018-04-04 08:22 | PCM.SN ---
- Free Text/Narrative Note: Confirmed with Orthopedic Surgery PA that patient is to be on ASA BID, not lovenox. Orders adjusted. BP up overnight. Will see how today goes after her HCTZ is restarted. Also requested nursing to check a manual BP. Also confirmed that dressing does not need to be changed until ortho follow-up. Nursing staff notified.
[2018-04-04] MEDS: Rifampin 150 MG Cap PO SCH ×2 (08:47→20:51)
[2018-04-04] MEDS: Oxybutynin 5 MG Tab.ER PO SCH (08:47)
[2018-04-04] MEDS: Hydrochlorothiazide 12.5 MG Cap PO SCH (08:47)
[2018-04-04] MEDS: Aspirin 81 MG Tab.Chew PO SCH ×2 (08:54→17:06)
[2018-04-04] MEDS: Benzocaine/Cetylpyridinium/Menthol Lozenge MUCMEM PRN ×2 (17:07→23:20)
[2018-04-04] MEDS: traMADol 50 MG Tab PO PRN (20:52)
[2018-04-04] MEDS: Sodium Chloride 0.9% 10 ML Syringe FLUSH PRN ×2 (20:56→21:04)
[2018-04-04] MEDS ORDERED: cloNIDine 0.1 MG Tab PO STA (23:36)
[2018-04-05] MEDS: Sodium Chloride 0.9% 10 ML Syringe FLUSH PRN (00:04)
[2018-04-05] MEDS: Heparin Sodium 100 Units/ML 3 ML Syringe FLUSH PRN (00:05)
[2018-04-05] MEDS: Lisinopril 2.5 MG Tab PO SCH ×2 (00:59→07:35)
[2018-04-05] MEDS: ceFAZolin 1 GM Vial IVPUSH SCH ×3 (04:59→20:37)
[2018-04-05] MEDS: Heparin Sodium 100 Units/ML 3 ML Syringe FLUSH SCH ×3 (04:59→20:38)
[2018-04-05] MEDS: Sodium Chloride 0.9% 10 ML Syringe IV SCH ×3 (04:59→20:42)
[2018-04-05] MEDS: Acetaminophen 325 MG Tab PO SCH ×3 (06:40→18:06)
[2018-04-05] MEDS: Aspirin 81 MG Tab.Chew PO SCH ×2 (07:35→18:06)
[2018-04-05] MEDS: Hydrochlorothiazide 12.5 MG Cap PO SCH (07:35)
[2018-04-05] MEDS: Rifampin 150 MG Cap PO SCH ×2 (07:35→20:39)
[2018-04-05] MEDS: Oxybutynin 5 MG Tab.ER PO SCH (07:35)
--- NOTE | 2018-04-05 10:49 | PCM.SN ---
- Free Text/Narrative Note: Pt found to have BP 180/105 last night while she was having a nose bleed, the second in 2 days. Pt has a hx of HTN but it has been higher than usual since swing bed admission. Pt states she felt "lousy" but no headache or visual changes. She was given clonidine.1 mg po with drop in BP to 160/80 and then started on lisinopril 2.5 mg daily. This BP is normal. CBC shpowed anmeia and Cr was normal. k was low at 3.0 This AM pt feels much better I informed her of med changes and possible side effects of lisinopril DX: Htn not well controlled Anemia Hypokalemia Plan:Will check BMP and BP q shift for 48 hours, continue lisinopril Start FE.l
[2018-04-05] MEDS: traMADol 50 MG Tab PO PRN (15:26)
[2018-04-05] MEDS ORDERED: Ondansetron 4 MG Tab.DIS PO PRN (20:58)
[2018-04-05] MEDS: Benzocaine/Cetylpyridinium/Menthol Lozenge MUCMEM PRN (23:29)
[2018-04-06] MEDS: Acetaminophen 325 MG Tab PO SCH ×4 (00:55→18:13)
[2018-04-06] MEDS: Benzocaine/Cetylpyridinium/Menthol Lozenge MUCMEM PRN ×2 (02:50→21:35)
[2018-04-06] MEDS: Sodium Chloride 0.9% 10 ML Syringe FLUSH PRN (05:01)
[2018-04-06] MEDS: ceFAZolin 1 GM Vial IVPUSH SCH ×3 (05:01→21:30)
[2018-04-06] MEDS: Sodium Chloride 0.9% 10 ML Syringe IV SCH ×3 (05:02→21:30)
[2018-04-06] MEDS: Heparin Sodium 100 Units/ML 3 ML Syringe FLUSH SCH ×3 (05:02→21:30)
[2018-04-06] MEDS: Ferrous Sulfate 325 MG Tab PO SCH (07:21)
[2018-04-06] MEDS: Oxybutynin 5 MG Tab.ER PO SCH (07:21)
[2018-04-06] MEDS: Lisinopril 2.5 MG Tab PO SCH (07:21)
[2018-04-06] MEDS: Aspirin 81 MG Tab.Chew PO SCH ×2 (07:21→18:12)
[2018-04-06] MEDS: Hydrochlorothiazide 12.5 MG Cap PO SCH (07:21)
[2018-04-06] MEDS: Rifampin 150 MG Cap PO SCH ×3 (07:21→19:03)
--- NOTE | 2018-04-06 09:51 | PCM.SN ---
- Free Text/Narrative Note: Pt c/o of wanting to vomi yesterday but this was actually some throat disomcort which has been present since surgery. Cepacol jelps some. Denes any abdominal distress BP 155/85 this MA IMP Possible larygeal irritaio for, untubation- observe for dorota HTN: improved Hypokalemia: BMP in AM
[2018-04-06] MEDS: traMADol 50 MG Tab PO PRN (22:57)
[2018-04-07] MEDS: oxyCODONE 5 MG Tab PO PRN ×2 (00:17→21:40)
[2018-04-07] MEDS: Acetaminophen 325 MG Tab PO SCH ×4 (00:18→18:09)
[2018-04-07] MEDS: Sodium Chloride 0.9% 10 ML Syringe IV SCH ×3 (04:25→20:20)
[2018-04-07] MEDS: Heparin Sodium 100 Units/ML 3 ML Syringe FLUSH SCH ×3 (04:25→20:20)
[2018-04-07] MEDS: Benzocaine/Cetylpyridinium/Menthol Lozenge MUCMEM PRN (04:25)
[2018-04-07] MEDS: ceFAZolin 1 GM Vial IVPUSH SCH ×3 (04:25→20:20)
[2018-04-07] MEDS: Sodium Chloride 0.9% 10 ML Syringe FLUSH PRN (06:29)
[2018-04-07] MEDS: Heparin Sodium 100 Units/ML 3 ML Syringe FLUSH PRN (06:29)
[2018-04-07 07:35] LABS: ANION GAP 7.5 mmol/L (10-20)
[2018-04-07] MEDS: Ferrous Sulfate 325 MG Tab PO SCH (07:50)
[2018-04-07] MEDS: Oxybutynin 5 MG Tab.ER PO SCH (07:50)
[2018-04-07] MEDS: Aspirin 81 MG Tab.Chew PO SCH (07:50)
[2018-04-07] MEDS: Rifampin 150 MG Cap PO SCH ×2 (07:50→20:19)
[2018-04-07] MEDS: Lisinopril 2.5 MG Tab PO SCH (07:50)
[2018-04-07] MEDS: Hydrochlorothiazide 12.5 MG Cap PO SCH (07:50)
--- NOTE | 2018-04-07 09:17 | PCM.PN ---
- General Info Date of Service: 04/07/18 Subjective Update: Patient seen this morning to follow-up on weekend events and address potassium of 2.5. She had a rough night with increased pain followed by nausea and vomiting. Patient and nursing staff believe increased pain is due to overdoing it with walking yesterday. She is feeling somewhat better this morning. She otherwise denies any new concerns. - Review of Systems General: Reports: No Symptoms HEENT: Reports: No Symptoms Pulmonary: Reports: No Symptoms Cardiovascular: Reports: No Symptoms Gastrointestinal: Reports: No Symptoms Genitourinary: Reports: No Symptoms Skin: Reports: No Symptoms - Patient Data Vitals - Most Recent: Last Vital Signs Temp 36.7 C 04/07/18 05:39 Pulse 95 04/07/18 05:39 Resp 20 04/07/18 05:39 BP 156/67 H 04/07/18 05:39 Pulse Ox 95 04/07/18 05:39 Weight - Most Recent: 77.564 kg I&O - Last 24 Hours: Intake & Output 04/06/18 04/07/18 04/07/18 22:59 06:59 14:59 Intake Total 240 960 240 Balance 240 960 240 Lab Results Last 24 Hours: Laboratory Results - last 24 hr 04/07/18 04/07/18 04/07/18 Range/Units 06:21 06:21 06:21 WBC 5.1 (4.0-10.0) x10^3/uL RBC 3.30 L (4.00-5.50) x10^6/uL Hgb 9.3 L (12.0-16.0) g/dL Hct 29.3 L (33.0-47.0) % MCV 88.8 (78.0-93.0) fL MCH 28.2 (26.0-32.0) pg MCHC 31.7 L (32.0-36.0) g/dL RDW Coeff of Kira 16.4 H (10.0-15.0) % Plt Count 385 (130-400) x10^3/uL Neut % (Auto) 64.1 (50.0-80.0) % Lymph % (Auto) 17.0 L (25.0-50.0) % [place] % (Auto) 11.4 H (2.0-11.0) % Eos % (Auto) 6.5 H (0.0-4.0) % Baso % (Auto) 1.0 (0.2-1.2) % Sodium 141 (136-145) mmol/L Potassium 2.5 L* (3.5-5.1) mmol/L Chloride 100 (98-107) mmol/L Carbon Dioxide 36 H (21-32) mmol/L Anion Gap 7.5 L (10-20) mmol/L BUN 14 (7-18) mg/dL Creatinine 1.0 (0.55-1.02) mg/dL Est Cr Clr Drug Dosing 39.70 mL/min Estimated GFR (MDRD) 53 Glucose 114 H (74-106) mg/dL Calcium 9.3 (8.5-10.1) mg/dL ALT 7 L (14-59) U/L Med Orders - Current: Current Medications Acetaminophen (Tylenol) 650 mg PO Q6H [facility] Last Admin: 04/07/18 06:39 Dose: 650 mg Aspirin (Halfprin) 81 mg PO BIDMEALS [facility] Benzocaine/Menthol (Cepacol Sore Throat) 1 lozenge MUCMEM Q2H PRN PRN Reason: Sore Throat Last Admin: 04/07/18 04:25 Dose: 1 lozenge Cefazolin Sodium (Ancef) 2 gm IVPUSH Q8H [facility] Last Admin: 04/07/18 04:25 Dose: 2 gm Ferrous Sulfate (Ferrous Sulfate) 325 mg PO WITHBREAKFAST [facility] Last Admin: 04/07/18 07:50 Dose: 325 mg Heparin Sodium (Porcine) (Heparin Lock Flush 100 Units/Ml) 300 unit FLUSH ASDIRECTED PRN PRN Reason: Keep Vein Open Last Admin: 04/07/18 06:29 Dose: 300 unit Heparin Sodium (Porcine) (Heparin Lock Flush 100 Units/Ml) 300 unit FLUSH Q8H [facility] Last Admin: 04/07/18 04:25 Dose: 300 unit Lisinopril (Prinivil) 5 mg PO DAILY [facility] Oxybutynin Chloride (Oxybutynin Er) 5 mg PO DAILY [facility] Last Admin: 04/07/18 07:50 Dose: 5 mg Oxycodone HCl (Oxycodone) 5 mg PO Q4H PRN PRN Reason: Pain (severe 7-10) Last Admin: 04/07/18 00:17 Dose: 5 mg Polyethylene Glycol (Miralax) 17 gm PO DAILY PRN PRN Reason: Constipation Potassium Chloride (Klor-Con 10) 40 meq PO BIDMEALS [facility] Rifampin (Rifadin) 300 mg PO BID [facility] Last Admin: 04/07/18 07:50 Dose: 300 mg Senna/Docusate Sodium (Senna Plus) 2 tab PO BID PRN PRN Reason: Constipation Sodium Chloride (Saline Flush) 10 ml FLUSH ASDIRECTED PRN PRN Reason: Other Last Admin: 04/07/18 06:29 Dose: 10 ml Sodium Chloride (Saline Flush) 10 ml IV Q8H [facility] Last Admin: 04/07/18 04:25 Dose: 10 ml Tramadol HCl (Ultram) 50 mg PO Q6H PRN PRN Reason: Pain (moderate 4-6) Last Admin: 04/06/18 22:57 Dose: 50 mg Discontinued Medications Acetaminophen (Tylenol) 650 mg PO Q6H [facility] Last Admin: 04/05/18 12:14 Dose: 650 mg Aspirin (Aspirin) 81 mg PO BIDMEALS [facility] Last Admin: 04/07/18 07:50 Dose: 81 mg Cefazolin Sodium (Ancef) 2 gm IVPUSH Q8H [facility] Last Admin: 04/03/18 21:32 Dose: Not Given Clonidine HCl (Catapres) 0.1 mg PO ONETIME STA Stop: 04/04/18 23:37 Last Admin: 04/04/18 23:48 Dose: 0.1 mg Enoxaparin Sodium (Lovenox) 40 mg SUBCUT DAILY [facility] Heparin Sodium (Porcine) (Heparin Lock Flush 100 Units/Ml) 300 unit FLUSH Q8H [facility] Last Admin: 04/03/18 22:12 Dose: Not Given Hydrochlorothiazide (Hydrochlorothiazide) 12.5 mg PO DAILY [facility] Last Admin: 04/07/18 07:50 Dose: 12.5 mg Lisinopril (Prinivil) 2.5 mg PO DAILY [facility] Last Admin: 04/07/18 07:50 Dose: 2.5 mg Ondansetron HCl (Zofran Odt) 4 mg PO Q6H PRN PRN Reason: Nausea/Vomiting Last Admin: 04/05/18 21:18 Dose: 4 mg Sodium Chloride (Saline Flush) 10 ml IV Q8H [facility] Last Admin: 04/03/18 21:31 Dose: Not Given - Exam General: Alert, Oriented, Cooperative, No Acute Distress HEENT: Mucous Membr. Moist/[place] Neck: Supple, Trachea Midline, No Thyromegaly. No: Lymphadenopathy Lungs: Clear to Auscultation, Normal Respiratory Effort Cardiovascular: Regular Rate, Regular Rhythm, Murmurs GI/Abdominal Exam: Normal Bowel Sounds, Soft, Non-Tender, No Organomegaly, No Distention, No Mass Extremities: Non-Tender, Normal Capillary Refill, Pedal Edema (1+ bilaterally) Peripheral Pulses: 2+: Radial (L), Radial (R) Skin: Warm, Dry, Intact - Problem List & Annotations (1) Coag negative Staphylococcus bacteremia SNOMED Code(s): 674255375528, 866599107379565 Code(s): R78.81 - BACTEREMIA Status: Acute Current Visit: Yes (2) Infection of prosthetic hip joint SNOMED Code(s): 928522942 Code(s): T84.59XA - INFECT/INFLM REACTION DUE TO OTH INTERNAL JOINT PROSTH, INIT; Z96.649 - PRESENCE OF UNSPECIFIED ARTIFICIAL HIP JOINT Status: Acute Current Visit: Yes Qualifiers: Encounter type: sequela Qualified Code(s): T84.59XS - Infection and inflammatory reaction due to other internal joint prosthesis, sequela; Z96.649 - Presence of unspecified artificial hip joint (3) Anemia SNOMED Code(s): 534549143 Code(s): D64.9 - ANEMIA, UNSPECIFIED Status: Acute Current Visit: Yes Qualifiers: Anemia type: other cause Other causes of anemia: acute posthemorrhagic Qualified Code(s): D62 - Acute posthemorrhagic anemia (4) Constipation SNOMED Code(s): 36031321 Code(s): K59.00 - CONSTIPATION, UNSPECIFIED Status: Acute Current Visit: Yes Qualifiers: Constipation type: drug induced constipation Qualified Code(s): K59.03 - Drug induced constipation (5) COPD (chronic obstructive pulmonary disease) SNOMED Code(s): 66182039 Code(s): J44.9 - CHRONIC OBSTRUCTIVE PULMONARY DISEASE, UNSPECIFIED Status : Chronic Current Visit: Yes Qualifiers: COPD type: unspecified COPD Qualified Code(s): J44.9 - Chronic obstructive pulmonary disease, unspecified (6) Hypertension SNOMED Code(s): 69949445 Code(s): I10 - ESSENTIAL (PRIMARY) HYPERTENSION Status: Chronic Current Visit: Yes Qualifiers: Hypertension type: essential hypertension Qualified Code(s): I10 - Essential (primary) hypertension (7) Mitral regurgitation SNOMED Code(s): 15528679 Code(s): I34.0 - NONRHEUMATIC MITRAL (VALVE) INSUFFICIENCY Status: Chronic Current Visit: Yes Qualifiers: Cardiac valve disease etiology: nonrheumatic Qualified Code(s): I34.0 - Nonrheumatic mitral (valve) insufficiency (8) OAB (overactive bladder) SNOMED Code(s): 943896241 Code(s): N32.81 - OVERACTIVE BLADDER Status: Chronic Current Visit: Yes (9) Osteoporosis SNOMED Code(s): 70912048 Code(s): M81.0 - AGE-RELATED OSTEOPOROSIS W/O CURRENT PATHOLOGICAL FRACTURE Status: Chronic Current Visit: Yes Qualifiers: Osteoporosis type: age-related Presence of current pathological fracture: without current pathological fracture Qualified Code(s): M81.0 - Age-related osteoporosis without current pathological fracture (10) Hypokalemia SNOMED Code(s): 27901132 Code(s): E87.6 - HYPOKALEMIA Status: Acute Current Visit: Yes - Problem List Review Problem List Initiated/Reviewed/Updated: Yes - My Orders Last 24 Hours: My Active Orders 04/07/18 08:16 EKG 12 Lead [EKG Documentation Completion] [RC] ROUTINE 04/07/18 08:52 Potassium Chloride [Klor-Con 10] 40 meq PO BIDMEALS 04/07/18 18:00 Aspirin [Halfprin] 81 mg PO BIDMEALS 04/08/18 05:11 BASIC METABOLIC PANEL,BMP [CHEM] Routine MAGNESIUM [CHEM] Routine 04/08/18 08:00 Lisinopril [Prinivil] 5 mg PO DAILY 04/14/18 05:00 ALANINE AMINOTRANSFERASE,ALT [CHEM] Q7D CBC WITH AUTO DIFF [HEME] Q7D CREATININE W/GFR [CHEM] Q7D 04/21/18 05:00 ALANINE AMINOTRANSFERASE,ALT [CHEM] Q7D CBC WITH AUTO DIFF [HEME] Q7D CREATININE W/GFR [CHEM] Q7D 04/28/18 05:00 ALANINE AMINOTRANSFERASE,ALT [CHEM] Q7D CBC WITH AUTO DIFF [HEME] Q7D CREATININE W/GFR [CHEM] Q7D 05/05/18 05:00 ALANINE AMINOTRANSFERASE,ALT [CHEM] Q7D CBC WITH AUTO DIFF [HEME] Q7D CREATININE W/GFR [CHEM] Q7D 05/12/18 05:00 ALANINE AMINOTRANSFERASE,ALT [CHEM] Q7D CBC WITH AUTO DIFF [HEME] Q7D CREATININE W/GFR [CHEM] Q7D - Assessment Assessment:: 82 yo female admitted to swing bed for strengthening and IV antibiotics after having a 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 New onset hypokalemia noted on routine monitoring labs today. - Plan Plan:: #1 Hypokalemia - Likely secondary to resumption of HCTZ as well as intermittent vomiting. - EKG obtained and without acute abnormalities. - Given no symptoms and no EKG changes, will replete orally instead of IV. - 40 mEq twice today. - Recheck BMP and also check Magnesium in the am. #2 Hypertension - Discontinue HCTZ. - Will increase lisinopril to 5 mg daily. - BP's have been some better. Will continue to titrate up on the lisinopril as BP's require and labs tolerate.
[2018-04-07] MEDS: Potassium Chloride 10 MEQ Tab.ER PO SCH ×2 (09:50→18:09)
[2018-04-07] MEDS: Aspirin 81 MG Tab.EC PO SCH (18:09)
[2018-04-08] MEDS: Acetaminophen 325 MG Tab PO SCH ×4 (01:09→18:30)
[2018-04-08] MEDS: Sodium Chloride 0.9% 10 ML Syringe IV SCH ×3 (04:56→20:16)
[2018-04-08] MEDS: Heparin Sodium 100 Units/ML 3 ML Syringe FLUSH SCH ×3 (04:56→20:15)
[2018-04-08] MEDS: ceFAZolin 1 GM Vial IVPUSH SCH ×3 (04:56→20:15)
[2018-04-08] MEDS: Heparin Sodium 100 Units/ML 3 ML Syringe FLUSH PRN (06:29)
[2018-04-08] MEDS: Sodium Chloride 0.9% 10 ML Syringe FLUSH PRN (06:29)
[2018-04-08 07:21] LABS: ANION GAP 4.5 mmol/L (10-20)
--- NOTE | 2018-04-08 07:37 | PCM.SN ---
- Free Text/Narrative Note: K up to 3.5 today. Magnesium normal. Given likely source of hypokalemia (HCTZ) has been discontinued, will also d/c KCl. Lisinopril will also possibly cause K to increase and this will be increased to 10 mg given persistently elevated blood pressures. Will recheck BMP on 04/11.
[2018-04-08] MEDS: traMADol 50 MG Tab PO PRN (07:49)
[2018-04-08] MEDS: Lisinopril 10 MG Tab PO SCH (07:49)
[2018-04-08] MEDS: Ferrous Sulfate 325 MG Tab PO SCH (07:49)
[2018-04-08] MEDS: Rifampin 150 MG Cap PO SCH ×2 (07:49→20:15)
[2018-04-08] MEDS: Oxybutynin 5 MG Tab.ER PO SCH (07:50)
[2018-04-08] MEDS: Aspirin 81 MG Tab.EC PO SCH ×2 (07:50→18:30)
[2018-04-08] MEDS ORDERED: Lisinopril 5 MG Tab PO SCH (08:00)
[2018-04-08] MEDS: Benzocaine/Cetylpyridinium/Menthol Lozenge MUCMEM PRN (20:22)
[2018-04-09] MEDS: Acetaminophen 325 MG Tab PO SCH ×4 (00:55→18:04)
[2018-04-09] MEDS: traMADol 50 MG Tab PO PRN ×3 (01:58→23:40)
[2018-04-09] MEDS: ceFAZolin 1 GM Vial IVPUSH SCH ×3 (04:40→21:07)
[2018-04-09] MEDS: Heparin Sodium 100 Units/ML 3 ML Syringe FLUSH SCH ×3 (04:40→21:07)
[2018-04-09] MEDS: Sodium Chloride 0.9% 10 ML Syringe IV SCH ×3 (04:41→21:08)
[2018-04-09] MEDS: Ferrous Sulfate 325 MG Tab PO SCH (08:16)
[2018-04-09] MEDS: Rifampin 150 MG Cap PO SCH ×2 (08:16→21:05)
[2018-04-09] MEDS: Lisinopril 10 MG Tab PO SCH (08:17)
[2018-04-09] MEDS: Oxybutynin 5 MG Tab.ER PO SCH (08:17)
[2018-04-09] MEDS: Aspirin 81 MG Tab.EC PO SCH ×2 (08:17→18:04)
[2018-04-09] MEDS: Sodium Chloride 0.9% 10 ML Syringe FLUSH PRN (12:55)
[2018-04-09] MEDS: Benzocaine/Cetylpyridinium/Menthol Lozenge MUCMEM PRN (14:08)
[2018-04-10] MEDS: Acetaminophen 325 MG Tab PO SCH ×4 (01:07→19:40)
[2018-04-10] MEDS: ceFAZolin 1 GM Vial IVPUSH SCH ×3 (05:05→20:04)
[2018-04-10] MEDS: Heparin Sodium 100 Units/ML 3 ML Syringe FLUSH SCH ×3 (05:05→20:10)
[2018-04-10] MEDS: Sodium Chloride 0.9% 10 ML Syringe IV SCH ×4 (05:05→20:05)
[2018-04-10] MEDS ORDERED: GI Cocktail Oral Solution 30 ML PO ONE (06:31)
[2018-04-10] MEDS: Oxybutynin 5 MG Tab.ER PO SCH (08:18)
[2018-04-10] MEDS: Aspirin 81 MG Tab.EC PO SCH ×2 (08:18→19:41)
[2018-04-10] MEDS: Rifampin 150 MG Cap PO SCH ×2 (08:18→20:04)
[2018-04-10] MEDS: Lisinopril 20 MG Tab PO SCH (08:19)
[2018-04-10] MEDS: Ferrous Sulfate 325 MG Tab PO SCH (08:20)
--- NOTE | 2018-04-10 10:38 | PCM.PN ---
- General Info Date of Service: 04/10/18 Subjective Update: Patient had an episode of chest pressure this morning upon awakening. EKG done by nursing was normal. She was given a GI cocktail and now notes that symptoms are resolved. She also notes her nausea is resolved as well. She has had persistent nausea since admission to swing bed and states she feels the most relief this morning after the GI cocktail than she ever has. - Review of Systems General: Reports: No Symptoms HEENT: Reports: No Symptoms Pulmonary: Reports: No Symptoms Cardiovascular: Reports: Chest Pain Gastrointestinal: Reports: Nausea Genitourinary: Reports: No Symptoms Musculoskeletal: Reports: No Symptoms Skin: Reports: No Symptoms - Patient Data Vitals - Most Recent: Last Vital Signs Temp 36.4 C 04/10/18 06:00 Pulse 96 04/10/18 06:00 Resp 18 04/10/18 06:00 BP 168/73 H 04/10/18 08:19 Pulse Ox 98 04/10/18 06:00 Weight - Most Recent: 73.255 kg I&O - Last 24 Hours: Intake & Output 04/09/18 04/10/18 04/10/18 22:59 06:59 14:59 Intake Total 840 240 Balance 840 240 Med Orders - Current: Current Medications Acetaminophen (Tylenol) 650 mg PO Q6H [facility] Last Admin: 04/10/18 06:08 Dose: 650 mg Aspirin (Halfprin) 81 mg PO BIDMEALS [facility] Last Admin: 04/10/18 08:18 Dose: 81 mg Benzocaine/Menthol (Cepacol Sore Throat) 1 lozenge MUCMEM Q2H PRN PRN Reason: Sore Throat Last Admin: 04/09/18 14:08 Dose: 1 lozenge Cefazolin Sodium (Ancef) 2 gm IVPUSH Q8H [facility] Last Admin: 04/10/18 05:05 Dose: 2 gm Ferrous Sulfate (Ferrous Sulfate) 325 mg PO WITHBREAKFAST [facility] Last Admin: 04/10/18 08:20 Dose: 325 mg Heparin Sodium (Porcine) (Heparin Lock Flush 100 Units/Ml) 300 unit FLUSH ASDIRECTED PRN PRN Reason: Keep Vein Open Last Admin: 04/08/18 06:29 Dose: 300 unit Heparin Sodium (Porcine) (Heparin Lock Flush 100 Units/Ml) 300 unit FLUSH Q8H [facility] Last Admin: 04/10/18 05:05 Dose: 300 unit Lisinopril (Prinivil) 20 mg PO DAILY [facility] Last Admin: 04/10/18 08:19 Dose: 20 mg Oxybutynin Chloride (Oxybutynin Er) 5 mg PO DAILY [facility] Last Admin: 04/10/18 08:18 Dose: 5 mg Polyethylene Glycol (Miralax) 17 gm PO DAILY PRN PRN Reason: Constipation Rifampin (Rifadin) 300 mg PO BID [facility] Last Admin: 04/10/18 08:18 Dose: 300 mg Senna/Docusate Sodium (Senna Plus) 2 tab PO BID PRN PRN Reason: Constipation Sodium Chloride (Saline Flush) 10 ml FLUSH ASDIRECTED PRN PRN Reason: Other Last Admin: 04/09/18 12:55 Dose: 10 ml Sodium Chloride (Saline Flush) 10 ml IV Q8H [facility] Last Admin: 04/10/18 05:05 Dose: 10 ml Tramadol HCl (Ultram) 50 mg PO Q6H PRN PRN Reason: Pain (moderate 4-6) Last Admin: 04/09/18 23:40 Dose: 50 mg Discontinued Medications Acetaminophen (Tylenol) 650 mg PO Q6H [facility] Last Admin: 04/05/18 12:14 Dose: 650 mg Al Hydroxide/Mg Hydroxide (Gi Cocktail) 30 ml PO ONETIME ONE Stop: 04/10/18 06:32 Last Admin: 04/10/18 06:40 Dose: 30 ml Aspirin (Aspirin) 81 mg PO BIDMEALS [facility] Last Admin: 04/07/18 07:50 Dose: 81 mg Cefazolin Sodium (Ancef) 2 gm IVPUSH Q8H [facility] Last Admin: 04/03/18 21:32 Dose: Not Given Clonidine HCl (Catapres) 0.1 mg PO ONETIME STA Stop: 04/04/18 23:37 Last Admin: 04/04/18 23:48 Dose: 0.1 mg Enoxaparin Sodium (Lovenox) 40 mg SUBCUT DAILY [facility] Heparin Sodium (Porcine) (Heparin Lock Flush 100 Units/Ml) 300 unit FLUSH Q8H [facility] Last Admin: 04/03/18 22:12 Dose: Not Given Hydrochlorothiazide (Hydrochlorothiazide) 12.5 mg PO DAILY [facility] Last Admin: 04/07/18 07:50 Dose: 12.5 mg Lisinopril (Prinivil) 2.5 mg PO DAILY [facility] Last Admin: 04/07/18 07:50 Dose: 2.5 mg Lisinopril (Prinivil) 5 mg PO DAILY [facility] Lisinopril (Prinivil) 10 mg PO DAILY [facility] Last Admin: 04/09/18 08:17 Dose: 10 mg Ondansetron HCl (Zofran Odt) 4 mg PO Q6H PRN PRN Reason: Nausea/Vomiting Last Admin: 04/05/18 21:18 Dose: 4 mg Oxycodone HCl (Oxycodone) 5 mg PO Q4H PRN PRN Reason: Pain (severe 7-10) Last Admin: 04/07/18 21:40 Dose: 5 mg Potassium Chloride (Klor-Con 10) 40 meq PO BIDMEALS [facility] Last Admin: 04/07/18 18:09 Dose: 40 meq Sodium Chloride (Saline Flush) 10 ml IV Q8H [facility] Last Admin: 04/03/18 21:31 Dose: Not Given - Exam General: Alert, Cooperative, No Acute Distress HEENT: Mucous Membr. Moist/[place] Neck: Supple, Trachea Midline, No Thyromegaly. No: Lymphadenopathy Lungs: Clear to Auscultation, Normal Respiratory Effort Cardiovascular: Regular Rate, Regular Rhythm, No Murmurs GI/Abdominal Exam: Normal Bowel Sounds, Soft, Non-Tender, No Organomegaly, No Distention, No Mass Extremities: Non-Tender, No Pedal Edema, Normal Capillary Refill Peripheral Pulses: 2+: Radial (L), Radial (R) Skin: Warm, Dry, Intact - Problem List & Annotations (1) GERD (gastroesophageal reflux disease) SNOMED Code(s): 366481278 Code(s): K21.9 - GASTRO-ESOPHAGEAL REFLUX DISEASE WITHOUT ESOPHAGITIS Status: Acute Current Visit: Yes (2) Coag negative Staphylococcus bacteremia SNOMED Code(s): 105379410076, 698592216270796 Code(s): R78.81 - BACTEREMIA Status: Acute Current Visit: Yes (3) Infection of prosthetic hip joint SNOMED Code(s): 566957156 Code(s): T84.59XA - INFECT/INFLM REACTION DUE TO OTH INTERNAL JOINT PROSTH, INIT; Z96.649 - PRESENCE OF UNSPECIFIED ARTIFICIAL HIP JOINT Status: Acute Current Visit: Yes Qualifiers: Encounter type: sequela Qualified Code(s): T84.59XS - Infection and inflammatory reaction due to other internal joint prosthesis, sequela; Z96.649 - Presence of unspecified artificial hip joint (4) Anemia SNOMED Code(s): 129524300 Code(s): D64.9 - ANEMIA, UNSPECIFIED Status: Acute Current Visit: Yes Qualifiers: Anemia type: other cause Other causes of anemia: acute posthemorrhagic Qualified Code(s): D62 - Acute posthemorrhagic anemia (5) Constipation SNOMED Code(s): 92474260 Code(s): K59.00 - CONSTIPATION, UNSPECIFIED Status: Acute Current Visit: Yes Qualifiers: Constipation type: drug induced constipation Qualified Code(s): K59.03 - Drug induced constipation (6) COPD (chronic obstructive pulmonary disease) SNOMED Code(s): 17550724 Code(s): J44.9 - CHRONIC OBSTRUCTIVE PULMONARY DISEASE, UNSPECIFIED Status : Chronic Current Visit: Yes Qualifiers: COPD type: unspecified COPD Qualified Code(s): J44.9 - Chronic obstructive pulmonary disease, unspecified (7) Hypertension SNOMED Code(s): 82688833 Code(s): I10 - ESSENTIAL (PRIMARY) HYPERTENSION Status: Chronic Current Visit: Yes Qualifiers: Hypertension type: essential hypertension Qualified Code(s): I10 - Essential (primary) hypertension (8) Mitral regurgitation SNOMED Code(s): 69690485 Code(s): I34.0 - NONRHEUMATIC MITRAL (VALVE) INSUFFICIENCY Status: Chronic Current Visit: Yes Qualifiers: Cardiac valve disease etiology: nonrheumatic Qualified Code(s): I34.0 - Nonrheumatic mitral (valve) insufficiency (9) OAB (overactive bladder) SNOMED Code(s): 827683689 Code(s): N32.81 - OVERACTIVE BLADDER Status: Chronic Current Visit: Yes (10) Osteoporosis SNOMED Code(s): 80619761 Code(s): M81.0 - AGE-RELATED OSTEOPOROSIS W/O CURRENT PATHOLOGICAL FRACTURE Status: Chronic Current Visit: Yes Qualifiers: Osteoporosis type: age-related Presence of current pathological fracture: without current pathological fracture Qualified Code(s): M81.0 - Age-related osteoporosis without current pathological fracture (11) Hypokalemia SNOMED Code(s): 17726703 Code(s): E87.6 - HYPOKALEMIA Status: Acute Current Visit: Yes - Problem List Review Problem List Initiated/Reviewed/Updated: Yes - My Orders Last 24 Hours: My Active Orders 04/10/18 06:31 EKG 12 Lead [EKG Documentation Completion] [RC] STAT 04/10/18 08:00 Lisinopril [Prinivil] 20 mg PO DAILY 04/10/18 20:00 Pantoprazole [ProTONIX] 40 mg PO BEDTIME 04/11/18 05:11 BASIC METABOLIC PANEL,BMP [CHEM] Routine 04/14/18 05:00 ALANINE AMINOTRANSFERASE,ALT [CHEM] Q7D CBC WITH AUTO DIFF [HEME] Q7D CREATININE W/GFR [CHEM] Q7D 04/21/18 05:00 ALANINE AMINOTRANSFERASE,ALT [CHEM] Q7D CBC WITH AUTO DIFF [HEME] Q7D CREATININE W/GFR [CHEM] Q7D 04/28/18 05:00 ALANINE AMINOTRANSFERASE,ALT [CHEM] Q7D CBC WITH AUTO DIFF [HEME] Q7D CREATININE W/GFR [CHEM] Q7D 05/05/18 05:00 ALANINE AMINOTRANSFERASE,ALT [CHEM] Q7D CBC WITH AUTO DIFF [HEME] Q7D CREATININE W/GFR [CHEM] Q7D 05/12/18 05:00 ALANINE AMINOTRANSFERASE,ALT [CHEM] Q7D CBC WITH AUTO DIFF [HEME] Q7D CREATININE W/GFR [CHEM] Q7D - Assessment Assessment:: 82 yo female admitted to swing bed for strengthening and IV antibiotics after having a 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 Seen this morning due to chest pain. EKG normal. Presumed to be GERD given persistent nausea and resolution with GI cocktail. - Plan Plan:: #1 Chest Pain #2 GERD - Chest pain presumed to be GERD based on description and improvement with GI cocktail. EKG normal. - Will hold off on doing any labs unless symptoms return. - Start scheduled PPI (pantoprazole due to interaction of omeprazole with rifampin) at bedtime. - Will check on patient again tomorrow.
[2018-04-10] MEDS: Pantoprazole 40 MG Tab.CR PO SCH (20:04)
[2018-04-10] MEDS: Sodium Chloride 0.9% 10 ML Syringe FLUSH PRN (20:05)
[2018-04-11] MEDS: Acetaminophen 325 MG Tab PO SCH ×4 (02:16→18:22)
[2018-04-11] MEDS: Sodium Chloride 0.9% 10 ML Syringe IV SCH ×3 (05:10→21:26)
[2018-04-11] MEDS: ceFAZolin 1 GM Vial IVPUSH SCH ×3 (05:10→21:15)
[2018-04-11] MEDS: Heparin Sodium 100 Units/ML 3 ML Syringe FLUSH SCH ×3 (05:13→21:25)
[2018-04-11] MEDS: Benzocaine/Cetylpyridinium/Menthol Lozenge MUCMEM PRN ×3 (05:15→22:33)
[2018-04-11] MEDS: Sodium Chloride 0.9% 10 ML Syringe FLUSH PRN (06:42)
[2018-04-11] MEDS: Heparin Sodium 100 Units/ML 3 ML Syringe FLUSH PRN (06:44)
[2018-04-11 07:15] LABS: ANION GAP 8.6 mmol/L (10-20)
[2018-04-11] MEDS: Ferrous Sulfate 325 MG Tab PO SCH (08:21)
[2018-04-11] MEDS: Aspirin 81 MG Tab.EC PO SCH ×2 (08:25→18:22)
[2018-04-11] MEDS: Oxybutynin 5 MG Tab.ER PO SCH (08:25)
[2018-04-11] MEDS: Lisinopril 20 MG Tab PO SCH (08:25)
[2018-04-11] MEDS: Rifampin 150 MG Cap PO SCH ×2 (08:25→19:49)
--- NOTE | 2018-04-11 10:19 | PCM.SN ---
- Free Text/Narrative Note: S: Patient seen to follow-up after starting pantoprazole last evening. Still had significant issues with acid reflux overnight. Associated with heartburn and nausea; no vomiting. Has not had any chest pain or shortness of breath. Also complains of some external genital itching over the past few days as well. Otherwise, is making nice gains with PT. O: Vitals reviewed. Mucous membranes moist. Heart with RRR, normal S1 and S2. Lungs CTAB. Abdomen soft with mild tenderness to palpation in the epigastrium without any rebound, rigidity, or guarding. Extremities without any edema. Patient declined external genital exam. A/P: #1 GERD - Continue pantoprazole. - Dietary modifications to avoid foods that will make this worse. - Will add maalox PRN. #2 Presumed yeast dermatitis - Will do miconazole cream BID for 2 weeks. - Will need exam if not improving. #3 Essential Hypertension - Labs from today reviewed and acceptable. - BP's are downtrending nicely after uptitration in lisinopril.
[2018-04-11] MEDS: Miconazole 2% Vaginal Crm 45 GM Tube TOP SCH ×2 (14:38→19:51)
[2018-04-11] MEDS: Aluminum Hydroxide/Magnesium Hydroxide/Simethicone Susp 30 ML Cup PO PRN ×2 (14:44→22:34)
[2018-04-11] MEDS: Pantoprazole 40 MG Tab.CR PO SCH (19:49)
[2018-04-12] MEDS: Acetaminophen 325 MG Tab PO SCH ×4 (01:27→18:09)
[2018-04-12] MEDS: Benzocaine/Cetylpyridinium/Menthol Lozenge MUCMEM PRN ×3 (04:19→22:30)
[2018-04-12] MEDS: Sodium Chloride 0.9% 10 ML Syringe FLUSH PRN ×2 (04:24→20:48)
[2018-04-12] MEDS: ceFAZolin 1 GM Vial IVPUSH SCH ×3 (04:24→20:46)
[2018-04-12] MEDS: Sodium Chloride 0.9% 10 ML Syringe IV SCH ×3 (04:25→20:47)
[2018-04-12] MEDS: Heparin Sodium 100 Units/ML 3 ML Syringe FLUSH SCH ×3 (04:35→20:47)
[2018-04-12] MEDS: Aluminum Hydroxide/Magnesium Hydroxide/Simethicone Susp 30 ML Cup PO PRN ×2 (06:36→22:30)
[2018-04-12] MEDS: Lisinopril 20 MG Tab PO SCH (07:51)
[2018-04-12] MEDS: Ferrous Sulfate 325 MG Tab PO SCH (07:51)
[2018-04-12] MEDS: Oxybutynin 5 MG Tab.ER PO SCH (07:51)
[2018-04-12] MEDS: Aspirin 81 MG Tab.EC PO SCH ×2 (07:51→17:55)
[2018-04-12] MEDS: Rifampin 150 MG Cap PO SCH ×2 (07:52→20:46)
[2018-04-12] MEDS: Miconazole 2% Vaginal Crm 45 GM Tube TOP SCH ×2 (07:52→20:46)
[2018-04-12] MEDS ORDERED: Loperamide 2 MG Cap PO PRN (10:08)
[2018-04-12] MEDS: Pantoprazole 40 MG Tab.CR PO SCH (20:46)
[2018-04-13] MEDS: Acetaminophen 325 MG Tab PO SCH ×5 (01:46→18:25)
[2018-04-13] MEDS: ceFAZolin 1 GM Vial IVPUSH SCH ×3 (05:49→20:32)
[2018-04-13] MEDS: Calcium Carbonate 750 MG Tab.Chew PO PRN (05:50)
[2018-04-13] MEDS: Heparin Sodium 100 Units/ML 3 ML Syringe FLUSH SCH ×3 (05:50→20:33)
[2018-04-13] MEDS: Sodium Chloride 0.9% 10 ML Syringe IV SCH ×3 (05:50→20:32)
[2018-04-13] MEDS: Benzocaine/Cetylpyridinium/Menthol Lozenge MUCMEM PRN (05:50)
[2018-04-13] MEDS: Sodium Chloride 0.9% 10 ML Syringe FLUSH PRN ×2 (05:50→20:32)
[2018-04-13] MEDS: Ferrous Sulfate 325 MG Tab PO SCH (07:42)
[2018-04-13] MEDS: Aluminum Hydroxide/Magnesium Hydroxide/Simethicone Susp 30 ML Cup PO PRN (07:42)
[2018-04-13] MEDS: Aspirin 81 MG Tab.EC PO SCH ×2 (07:42→17:37)
[2018-04-13] MEDS: Lisinopril 20 MG Tab PO SCH (07:42)
[2018-04-13] MEDS: Oxybutynin 5 MG Tab.ER PO SCH (07:42)
[2018-04-13] MEDS: Miconazole 2% Vaginal Crm 45 GM Tube TOP SCH ×2 (07:42→20:32)
[2018-04-13] MEDS: Rifampin 150 MG Cap PO SCH ×2 (07:42→20:33)
[2018-04-13] MEDS: Pantoprazole 40 MG Tab.CR PO SCH (20:33)
[2018-04-14] MEDS: Acetaminophen 325 MG Tab PO SCH ×4 (00:16→18:24)
[2018-04-14] MEDS: Benzocaine/Cetylpyridinium/Menthol Lozenge MUCMEM PRN ×3 (00:17→22:22)
[2018-04-14] MEDS: Aluminum Hydroxide/Magnesium Hydroxide/Simethicone Susp 30 ML Cup PO PRN ×3 (00:17→22:22)
[2018-04-14] MEDS: ceFAZolin 1 GM Vial IVPUSH SCH ×3 (05:12→20:35)
[2018-04-14] MEDS: Sodium Chloride 0.9% 10 ML Syringe IV SCH ×3 (05:13→20:36)
[2018-04-14] MEDS: Sodium Chloride 0.9% 10 ML Syringe FLUSH PRN ×2 (05:13→06:29)
[2018-04-14] MEDS: Heparin Sodium 100 Units/ML 3 ML Syringe FLUSH SCH ×3 (05:13→20:35)
[2018-04-14] MEDS: Heparin Sodium 100 Units/ML 3 ML Syringe FLUSH PRN (06:29)
[2018-04-14] MEDS: Rifampin 150 MG Cap PO SCH ×2 (07:41→20:36)
[2018-04-14] MEDS: Lisinopril 20 MG Tab PO SCH (07:41)
[2018-04-14] MEDS: Oxybutynin 5 MG Tab.ER PO SCH (07:41)
[2018-04-14] MEDS: Aspirin 81 MG Tab.EC PO SCH ×2 (07:41→18:24)
[2018-04-14] MEDS: Ferrous Sulfate 325 MG Tab PO SCH (07:41)
[2018-04-14] MEDS: Miconazole 2% Vaginal Crm 45 GM Tube TOP SCH ×2 (07:43→20:36)
[2018-04-14] MEDS: Pantoprazole 40 MG Tab.CR PO SCH (20:36)
[2018-04-15] MEDS: Acetaminophen 325 MG Tab PO SCH ×4 (00:56→20:14)
[2018-04-15] MEDS: Sodium Chloride 0.9% 10 ML Syringe IV SCH ×3 (05:12→20:15)
[2018-04-15] MEDS: ceFAZolin 1 GM Vial IVPUSH SCH ×3 (05:13→20:15)
[2018-04-15] MEDS: Heparin Sodium 100 Units/ML 3 ML Syringe FLUSH SCH ×3 (05:13→20:15)
[2018-04-15] MEDS: Benzocaine/Cetylpyridinium/Menthol Lozenge MUCMEM PRN ×4 (05:50→18:47)
[2018-04-15] MEDS: Oxybutynin 5 MG Tab.ER PO SCH (08:44)
[2018-04-15] MEDS: Ferrous Sulfate 325 MG Tab PO SCH (08:44)
[2018-04-15] MEDS: Rifampin 150 MG Cap PO SCH ×2 (08:44→20:14)
[2018-04-15] MEDS: Miconazole 2% Vaginal Crm 45 GM Tube TOP SCH ×2 (08:44→20:15)
[2018-04-15] MEDS: Lisinopril 20 MG Tab PO SCH (08:44)
[2018-04-15] MEDS: Aspirin 81 MG Tab.EC PO SCH ×2 (08:44→18:47)
[2018-04-15] MEDS: Pantoprazole 40 MG Tab.CR PO SCH (20:15)
[2018-04-16] MEDS: Acetaminophen 325 MG Tab PO SCH ×4 (00:59→19:52)
[2018-04-16] MEDS: Aluminum Hydroxide/Magnesium Hydroxide/Simethicone Susp 30 ML Cup PO PRN (01:06)
[2018-04-16] MEDS: ceFAZolin 1 GM Vial IVPUSH SCH ×3 (05:04→20:43)
[2018-04-16] MEDS: Heparin Sodium 100 Units/ML 3 ML Syringe FLUSH SCH ×3 (05:05→20:44)
[2018-04-16] MEDS: Sodium Chloride 0.9% 10 ML Syringe IV SCH ×3 (05:05→20:45)
[2018-04-16] MEDS: Calcium Carbonate 750 MG Tab.Chew PO PRN (05:28)
[2018-04-16] MEDS: Oxybutynin 5 MG Tab.ER PO SCH (08:16)
[2018-04-16] MEDS: Lisinopril 20 MG Tab PO SCH (08:16)
[2018-04-16] MEDS: Miconazole 2% Vaginal Crm 45 GM Tube TOP SCH ×2 (08:16→20:44)
[2018-04-16] MEDS: Rifampin 150 MG Cap PO SCH ×2 (08:16→20:44)
[2018-04-16] MEDS: Benzocaine/Cetylpyridinium/Menthol Lozenge MUCMEM PRN (08:16)
[2018-04-16] MEDS: Aspirin 81 MG Tab.EC PO SCH ×2 (08:16→18:55)
[2018-04-16] MEDS: Ferrous Sulfate 325 MG Tab PO SCH (08:16)
[2018-04-16] MEDS: Pantoprazole 40 MG Tab.CR PO SCH (20:44)
[2018-04-17] MEDS: Acetaminophen 325 MG Tab PO SCH ×4 (01:25→18:10)
[2018-04-17] MEDS: Benzocaine/Cetylpyridinium/Menthol Lozenge MUCMEM PRN (01:26)
[2018-04-17] MEDS: Aluminum Hydroxide/Magnesium Hydroxide/Simethicone Susp 30 ML Cup PO PRN (01:26)
[2018-04-17] MEDS: Calcium Carbonate 750 MG Tab.Chew PO PRN (04:10)
[2018-04-17] MEDS: Heparin Sodium 100 Units/ML 3 ML Syringe FLUSH SCH ×3 (04:15→20:21)
[2018-04-17] MEDS: ceFAZolin 1 GM Vial IVPUSH SCH ×3 (04:15→20:08)
[2018-04-17] MEDS: Sodium Chloride 0.9% 10 ML Syringe IV SCH ×3 (04:15→20:08)
[2018-04-17] MEDS: Miconazole 2% Vaginal Crm 45 GM Tube TOP SCH ×2 (12:19→20:06)
[2018-04-17] MEDS: Ferrous Sulfate 325 MG Tab PO SCH (12:19)
[2018-04-17] MEDS: Lisinopril 20 MG Tab PO SCH (12:19)
[2018-04-17] MEDS: Aspirin 81 MG Tab.EC PO SCH ×2 (12:19→18:10)
[2018-04-17] MEDS: Rifampin 150 MG Cap PO SCH ×2 (12:19→20:07)
[2018-04-17] MEDS: Oxybutynin 5 MG Tab.ER PO SCH (12:19)
[2018-04-17] MEDS: Pantoprazole 40 MG Tab.CR PO SCH (20:07)
[2018-04-17] MEDS: Sodium Chloride 0.9% 10 ML Syringe FLUSH PRN (20:09)
[2018-04-18] MEDS: Acetaminophen 325 MG Tab PO SCH ×4 (02:28→20:41)
[2018-04-18] MEDS: ceFAZolin 1 GM Vial IVPUSH SCH ×3 (05:48→20:41)
[2018-04-18] MEDS: Sodium Chloride 0.9% 10 ML Syringe IV SCH ×3 (05:48→20:42)
[2018-04-18] MEDS: Heparin Sodium 100 Units/ML 3 ML Syringe FLUSH SCH ×3 (05:49→20:42)
[2018-04-18] MEDS: Sodium Chloride 0.9% 10 ML Syringe FLUSH PRN ×2 (05:49→20:42)
[2018-04-18] MEDS: Pantoprazole 40 MG Tab.CR PO SCH (06:01)
[2018-04-18] MEDS: Lisinopril 20 MG Tab PO SCH (07:28)
[2018-04-18] MEDS: Oxybutynin 5 MG Tab.ER PO SCH (07:29)
[2018-04-18] MEDS: Aspirin 81 MG Tab.EC PO SCH ×2 (07:29→17:00)
[2018-04-18] MEDS: Ferrous Sulfate 325 MG Tab PO SCH (07:29)
[2018-04-18] MEDS: Rifampin 150 MG Cap PO SCH ×2 (07:29→20:41)
[2018-04-18] MEDS: Miconazole 2% Vaginal Crm 45 GM Tube TOP SCH ×2 (07:30→20:41)
[2018-04-18] MEDS: Aluminum Hydroxide/Magnesium Hydroxide/Simethicone Susp 30 ML Cup PO PRN (20:30)
[2018-04-19] MEDS: Acetaminophen 325 MG Tab PO SCH ×4 (02:35→18:02)
[2018-04-19] MEDS: ceFAZolin 1 GM Vial IVPUSH SCH ×3 (05:31→20:56)
[2018-04-19] MEDS: Heparin Sodium 100 Units/ML 3 ML Syringe FLUSH SCH ×3 (05:32→20:57)
[2018-04-19] MEDS: Sodium Chloride 0.9% 10 ML Syringe FLUSH PRN ×3 (05:32→20:57)
[2018-04-19] MEDS: Sodium Chloride 0.9% 10 ML Syringe IV SCH ×3 (05:32→20:56)
[2018-04-19] MEDS: Pantoprazole 40 MG Tab.CR PO SCH (06:36)
[2018-04-19] MEDS: Ferrous Sulfate 325 MG Tab PO SCH (08:14)
[2018-04-19] MEDS: Oxybutynin 5 MG Tab.ER PO SCH (08:14)
[2018-04-19] MEDS: Aspirin 81 MG Tab.EC PO SCH ×2 (08:15→17:57)
[2018-04-19] MEDS: Rifampin 150 MG Cap PO SCH ×2 (08:15→20:55)
[2018-04-19] MEDS: Lisinopril 20 MG Tab PO SCH (08:15)
[2018-04-19] MEDS: Miconazole 2% Vaginal Crm 45 GM Tube TOP SCH ×2 (08:16→20:56)
[2018-04-19] MEDS: Aluminum Hydroxide/Magnesium Hydroxide/Simethicone Susp 30 ML Cup PO PRN ×2 (13:00→21:01)
[2018-04-20] MEDS: Acetaminophen 325 MG Tab PO SCH ×4 (02:24→21:05)
[2018-04-20] MEDS: Sodium Chloride 0.9% 10 ML Syringe FLUSH PRN (05:41)
[2018-04-20] MEDS: Sodium Chloride 0.9% 10 ML Syringe IV SCH ×3 (05:41→21:04)
[2018-04-20] MEDS: ceFAZolin 1 GM Vial IVPUSH SCH ×3 (05:41→21:04)
[2018-04-20] MEDS: Heparin Sodium 100 Units/ML 3 ML Syringe FLUSH SCH ×3 (05:42→21:04)
[2018-04-20] MEDS: Pantoprazole 40 MG Tab.CR PO SCH (06:01)
[2018-04-20] MEDS: Lisinopril 20 MG Tab PO SCH (07:50)
[2018-04-20] MEDS: Rifampin 150 MG Cap PO SCH ×2 (07:50→21:05)
[2018-04-20] MEDS: Ferrous Sulfate 325 MG Tab PO SCH (07:50)
[2018-04-20] MEDS: Aspirin 81 MG Tab.EC PO SCH ×2 (07:50→17:31)
[2018-04-20] MEDS: Oxybutynin 5 MG Tab.ER PO SCH (07:50)
[2018-04-20] MEDS: Miconazole 2% Vaginal Crm 45 GM Tube TOP SCH ×2 (07:51→21:09)
[2018-04-20] MEDS: Aluminum Hydroxide/Magnesium Hydroxide/Simethicone Susp 30 ML Cup PO PRN (21:08)
[2018-04-21] MEDS: Acetaminophen 325 MG Tab PO SCH ×4 (01:28→18:06)
[2018-04-21] MEDS: Sodium Chloride 0.9% 10 ML Syringe IV SCH ×3 (05:40→20:35)
[2018-04-21] MEDS: ceFAZolin 1 GM Vial IVPUSH SCH ×3 (05:40→20:35)
[2018-04-21] MEDS: Heparin Sodium 100 Units/ML 3 ML Syringe FLUSH SCH ×3 (05:40→20:37)
[2018-04-21] MEDS: Pantoprazole 40 MG Tab.CR PO SCH (06:07)
[2018-04-21] MEDS: Heparin Sodium 100 Units/ML 3 ML Syringe FLUSH PRN (06:31)
[2018-04-21] MEDS: Lisinopril 20 MG Tab PO SCH (09:40)
[2018-04-21] MEDS: Rifampin 150 MG Cap PO SCH ×2 (09:40→20:36)
[2018-04-21] MEDS: Miconazole 2% Vaginal Crm 45 GM Tube TOP SCH ×2 (09:40→20:35)
[2018-04-21] MEDS: Oxybutynin 5 MG Tab.ER PO SCH (09:40)
[2018-04-21] MEDS: Aspirin 81 MG Tab.EC PO SCH ×2 (09:40→17:47)
[2018-04-21] MEDS: Ferrous Sulfate 325 MG Tab PO SCH (09:40)
--- NOTE | 2018-04-21 17:02 | PCM.PN ---
- General Info Date of Service: 04/21/18 Subjective Update: Visited patient today to follow-up on GERD now that she has been on the PPI longer. She notes that overall she is doing well as long as she does not eat tomatoes. She is taking maalox every night at bedtime and pharmacy is wondering about doing pepcid instead. No chest pain or shortness of breath. She continues to recover well from her hip infection and her appointment with ortho went well last week. She is progressing with PT. Her pain is minimal and controlled with tylenol; no narcotics for >5 days. - Review of Systems General: Reports: No Symptoms Pulmonary: Reports: No Symptoms Cardiovascular: Reports: No Symptoms Gastrointestinal: Reports: No Symptoms Skin: Reports: No Symptoms - Patient Data Vitals - Most Recent: Last Vital Signs Temp 37.0 C 04/21/18 05:46 Pulse 95 04/21/18 05:46 Resp 18 04/21/18 05:46 BP 153/76 H 04/21/18 05:46 Pulse Ox 97 04/21/18 05:46 Weight - Most Recent: 73.156 kg I&O - Last 24 Hours: Intake & Output 04/21/18 04/21/18 04/21/18 06:59 14:59 22:59 Intake Total 280 Balance 280 Lab Results Last 24 Hours: Laboratory Results - last 24 hr 04/21/18 04/21/18 Range/Units 06:30 06:30 WBC 3.9 L (4.0-10.0) x10^3/uL RBC 3.13 L (4.00-5.50) x10^6/uL Hgb 9.2 L (12.0-16.0) g/dL Hct 30.1 L (33.0-47.0) % MCV 96.2 H (78.0-93.0) fL MCH 29.4 (26.0-32.0) pg MCHC 30.6 L (32.0-36.0) g/dL RDW Coeff of Kira 18.7 H (10.0-15.0) % Plt Count 283 D (130-400) x10^3/uL Neut % (Auto) 48.6 L (50.0-80.0) % Lymph % (Auto) 29.2 (25.0-50.0) % [place] % (Auto) 10.3 (2.0-11.0) % Eos % (Auto) 10.3 H (0.0-4.0) % Baso % (Auto) 1.6 H (0.2-1.2) % Creatinine 0.8 (0.55-1.02) mg/dL Est Cr Clr Drug Dosing 49.63 mL/min Estimated GFR (MDRD) > 60 ALT 7 L (14-59) U/L Med Orders - Current: Current Medications Acetaminophen (Tylenol) 650 mg PO Q6H [facility] Last Admin: 04/21/18 12:48 Dose: Not Given Al Hydroxide/Mg Hydroxide (Mag-Al Plus) 30 ml PO Q8H PRN PRN Reason: acid reflux Last Admin: 04/20/18 21:08 Dose: 30 ml Aspirin (Halfprin) 81 mg PO BIDMEALS [facility] Last Admin: 04/21/18 09:40 Dose: 81 mg Benzocaine/Menthol (Cepacol Sore Throat) 1 lozenge MUCMEM Q2H PRN PRN Reason: Sore Throat Last Admin: 04/17/18 01:26 Dose: 1 lozenge Calcium Carbonate/Glycine (Tums Extra Strength) 750 mg PO Q4H PRN PRN Reason: Dyspepsia Last Admin: 04/17/18 04:10 Dose: 750 mg Cefazolin Sodium (Ancef) 2 gm IVPUSH Q8H [facility] Stop: 05/12/18 21:01 Last Admin: 04/21/18 12:48 Dose: 2 gm Famotidine (Pepcid) 20 mg PO BEDTIME [facility] Ferrous Sulfate (Ferrous Sulfate) 325 mg PO WITHBREAKFAST [facility] Last Admin: 04/21/18 09:40 Dose: 325 mg Heparin Sodium (Porcine) (Heparin Lock Flush 100 Units/Ml) 300 unit FLUSH ASDIRECTED PRN PRN Reason: Keep Vein Open Last Admin: 04/21/18 06:31 Dose: 300 unit Heparin Sodium (Porcine) (Heparin Lock Flush 100 Units/Ml) 300 unit FLUSH Q8H [facility] Last Admin: 04/21/18 12:48 Dose: 300 unit Lisinopril (Prinivil) 20 mg PO DAILY [facility] Last Admin: 04/21/18 09:40 Dose: 20 mg Loperamide HCl (Imodium) 2 mg PO Q4H PRN PRN Reason: Diarrhea Miconazole (Miconazole 2% Vaginal) 0 gm TOP BID [facility] Stop: 04/25/18 08:00 Last Admin: 04/21/18 09:40 Dose: 1 applic Oxybutynin Chloride (Oxybutynin Er) 5 mg PO DAILY [facility] Last Admin: 04/21/18 09:40 Dose: 5 mg Pantoprazole Sodium (Protonix) 40 mg PO DAILY@0700 [facility] Last Admin: 04/21/18 06:07 Dose: 40 mg Polyethylene Glycol (Miralax) 17 gm PO DAILY PRN PRN Reason: Constipation Rifampin (Rifadin) 300 mg PO BID [facility] Stop: 05/12/18 20:01 Last Admin: 04/21/18 09:40 Dose: 300 mg Senna/Docusate Sodium (Senna Plus) 2 tab PO BID PRN PRN Reason: Constipation Sodium Chloride (Saline Flush) 10 ml FLUSH ASDIRECTED PRN PRN Reason: Other Last Admin: 04/20/18 05:41 Dose: 10 ml Sodium Chloride (Saline Flush) 10 ml IV Q8H [facility] Last Admin: 04/21/18 12:48 Dose: 10 ml Discontinued Medications Acetaminophen (Tylenol) 650 mg PO Q6H [facility] Last Admin: 04/05/18 12:14 Dose: 650 mg Al Hydroxide/Mg Hydroxide (Gi Cocktail) 30 ml PO ONETIME ONE Stop: 04/10/18 06:32 Last Admin: 04/10/18 06:40 Dose: 30 ml Aspirin (Aspirin) 81 mg PO BIDMEALS [facility] Last Admin: 04/07/18 07:50 Dose: 81 mg Cefazolin Sodium (Ancef) 2 gm IVPUSH Q8H [facility] Last Admin: 04/03/18 21:32 Dose: Not Given Clonidine HCl (Catapres) 0.1 mg PO ONETIME STA Stop: 04/04/18 23:37 Last Admin: 04/04/18 23:48 Dose: 0.1 mg Enoxaparin Sodium (Lovenox) 40 mg SUBCUT DAILY [facility] Heparin Sodium (Porcine) (Heparin Lock Flush 100 Units/Ml) 300 unit FLUSH Q8H [facility] Last Admin: 04/03/18 22:12 Dose: Not Given Hydrochlorothiazide (Hydrochlorothiazide) 12.5 mg PO DAILY [facility] Last Admin: 04/07/18 07:50 Dose: 12.5 mg Lisinopril (Prinivil) 2.5 mg PO DAILY [facility] Last Admin: 04/07/18 07:50 Dose: 2.5 mg Lisinopril (Prinivil) 5 mg PO DAILY [facility] Lisinopril (Prinivil) 10 mg PO DAILY [facility] Last Admin: 04/09/18 08:17 Dose: 10 mg Ondansetron HCl (Zofran Odt) 4 mg PO Q6H PRN PRN Reason: Nausea/Vomiting Last Admin: 04/05/18 21:18 Dose: 4 mg Oxycodone HCl (Oxycodone) 5 mg PO Q4H PRN PRN Reason: Pain (severe 7-10) Last Admin: 04/07/18 21:40 Dose: 5 mg Pantoprazole Sodium (Protonix) 40 mg PO BEDTIME [facility] Stop: 04/17/18 20:01 Last Admin: 04/17/18 20:07 Dose: 40 mg Potassium Chloride (Klor-Con 10) 40 meq PO BIDMEALS [facility] Last Admin: 04/07/18 18:09 Dose: 40 meq Sodium Chloride (Saline Flush) 10 ml IV Q8H [facility] Last Admin: 04/03/18 21:31 Dose: Not Given Tramadol HCl (Ultram) 50 mg PO Q6H PRN PRN Reason: Pain (moderate 4-6) Last Admin: 04/09/18 23:40 Dose: 50 mg - Exam General: Alert, Oriented, Cooperative, No Acute Distress HEENT: Mucous Membr. Moist/[place] Lungs: Clear to Auscultation, Normal Respiratory Effort Cardiovascular: Regular Rate, Regular Rhythm, Murmurs Extremities: Other (incision right hip is healing well and without surrounding erythema or edema) Skin: Warm, Dry - Problem List & Annotations (1) GERD (gastroesophageal reflux disease) SNOMED Code(s): 429706690 Code(s): K21.9 - GASTRO-ESOPHAGEAL REFLUX DISEASE WITHOUT ESOPHAGITIS Status: Acute Current Visit: Yes (2) Coag negative Staphylococcus bacteremia SNOMED Code(s): 689385790862, 512059683402737 Code(s): R78.81 - BACTEREMIA Status: Acute Current Visit: Yes (3) Infection of prosthetic hip joint SNOMED Code(s): 500726659 Code(s): T84.59XA - INFECT/INFLM REACTION DUE TO OTH INTERNAL JOINT PROSTH, INIT; Z96.649 - PRESENCE OF UNSPECIFIED ARTIFICIAL HIP JOINT Status: Acute Current Visit: Yes Qualifiers: Encounter type: sequela Qualified Code(s): T84.59XS - Infection and inflammatory reaction due to other internal joint prosthesis, sequela; Z96.649 - Presence of unspecified artificial hip joint (4) Anemia SNOMED Code(s): 819384998 Code(s): D64.9 - ANEMIA, UNSPECIFIED Status: Acute Current Visit: Yes Qualifiers: Anemia type: other cause Other causes of anemia: acute posthemorrhagic Qualified Code(s): D62 - Acute posthemorrhagic anemia (5) Constipation SNOMED Code(s): 69141508 Code(s): K59.00 - CONSTIPATION, UNSPECIFIED Status: Acute Current Visit: Yes Qualifiers: Constipation type: drug induced constipation Qualified Code(s): K59.03 - Drug induced constipation (6) COPD (chronic obstructive pulmonary disease) SNOMED Code(s): 36571338 Code(s): J44.9 - CHRONIC OBSTRUCTIVE PULMONARY DISEASE, UNSPECIFIED Status : Chronic Current Visit: Yes Qualifiers: COPD type: unspecified COPD Qualified Code(s): J44.9 - Chronic obstructive pulmonary disease, unspecified (7) Hypertension SNOMED Code(s): 31344906 Code(s): I10 - ESSENTIAL (PRIMARY) HYPERTENSION Status: Chronic Current Visit: Yes Qualifiers: Hypertension type: essential hypertension Qualified Code(s): I10 - Essential (primary) hypertension (8) Mitral regurgitation SNOMED Code(s): 37434870 Code(s): I34.0 - NONRHEUMATIC MITRAL (VALVE) INSUFFICIENCY Status: Chronic Current Visit: Yes Qualifiers: Cardiac valve disease etiology: nonrheumatic Qualified Code(s): I34.0 - Nonrheumatic mitral (valve) insufficiency (9) OAB (overactive bladder) SNOMED Code(s): 370829446 Code(s): N32.81 - OVERACTIVE BLADDER Status: Chronic Current Visit: Yes (10) Osteoporosis SNOMED Code(s): 00082450 Code(s): M81.0 - AGE-RELATED OSTEOPOROSIS W/O CURRENT PATHOLOGICAL FRACTURE Status: Chronic Current Visit: Yes Qualifiers: Osteoporosis type: age-related Presence of current pathological fracture: without current pathological fracture Qualified Code(s): M81.0 - Age-related osteoporosis without current pathological fracture (11) Hypokalemia SNOMED Code(s): 75576521 Code(s): E87.6 - HYPOKALEMIA Status: Acute Current Visit: Yes - Problem List Review Problem List Initiated/Reviewed/Updated: Yes - My Orders Last 24 Hours: My Active Orders 04/20/18 16:26 Weight [Height and Weight] [RC] We@04/21/18 20:00 Famotidine [Pepcid] 20 mg PO BEDTIME 04/28/18 05:00 ALANINE AMINOTRANSFERASE,ALT [CHEM] Q7D CBC WITH AUTO DIFF [HEME] Q7D CREATININE W/GFR [CHEM] Q7D 05/05/18 05:00 ALANINE AMINOTRANSFERASE,ALT [CHEM] Q7D CBC WITH AUTO DIFF [HEME] Q7D CREATININE W/GFR [CHEM] Q7D 05/12/18 05:00 ALANINE AMINOTRANSFERASE,ALT [CHEM] Q7D CBC WITH AUTO DIFF [HEME] Q7D CREATININE W/GFR [CHEM] Q7D - Assessment Assessment:: 82 yo female admitted to swing bed for strengthening and IV antibiotics after having a 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 Recovering well. Hospitalization complicated by GERD, which is now much better. - Plan Plan:: #1 GERD - Much better controlled. - Will start pepcid at bedtime in addition to am PPI. #2 Hypertension - BP's much better but still elevated. - Will see if we can change the schedule to checking this at 10 am instead. #3 s/p right hip revision - Tramadol d/c'd as she has not been requiring this. - Continue PT, IV antibiotics, and tylenol.
[2018-04-21] MEDS: Aluminum Hydroxide/Magnesium Hydroxide/Simethicone Susp 30 ML Cup PO PRN (20:34)
[2018-04-21] MEDS: Sodium Chloride 0.9% 10 ML Syringe FLUSH PRN (20:35)
[2018-04-21] MEDS: Famotidine 20 MG Tab PO SCH (20:36)
[2018-04-22] MEDS: Acetaminophen 325 MG Tab PO SCH ×4 (02:00→20:23)
[2018-04-22] MEDS: Sodium Chloride 0.9% 10 ML Syringe IV SCH ×3 (05:30→20:20)
[2018-04-22] MEDS: Sodium Chloride 0.9% 10 ML Syringe FLUSH PRN ×3 (05:30→20:20)
[2018-04-22] MEDS: ceFAZolin 1 GM Vial IVPUSH SCH ×3 (05:30→20:20)
[2018-04-22] MEDS: Heparin Sodium 100 Units/ML 3 ML Syringe FLUSH SCH ×3 (05:31→20:21)
[2018-04-22] MEDS: Pantoprazole 40 MG Tab.CR PO SCH (06:39)
[2018-04-22] MEDS: Oxybutynin 5 MG Tab.ER PO SCH (08:27)
[2018-04-22] MEDS: Rifampin 150 MG Cap PO SCH ×2 (08:27→20:24)
[2018-04-22] MEDS: Ferrous Sulfate 325 MG Tab PO SCH (08:27)
[2018-04-22] MEDS: Lisinopril 20 MG Tab PO SCH (08:27)
[2018-04-22] MEDS: Miconazole 2% Vaginal Crm 45 GM Tube TOP SCH ×2 (08:28→20:23)
[2018-04-22] MEDS: Aspirin 81 MG Tab.EC PO SCH ×2 (08:28→18:09)
[2018-04-22] MEDS: Aluminum Hydroxide/Magnesium Hydroxide/Simethicone Susp 30 ML Cup PO PRN (20:20)
[2018-04-22] MEDS: Famotidine 20 MG Tab PO SCH (20:20)
[2018-04-23] MEDS: Acetaminophen 325 MG Tab PO SCH ×3 (03:46→20:23)
[2018-04-23] MEDS: ceFAZolin 1 GM Vial IVPUSH SCH ×3 (05:27→20:23)
[2018-04-23] MEDS: Heparin Sodium 100 Units/ML 3 ML Syringe FLUSH SCH ×3 (05:27→20:25)
[2018-04-23] MEDS: Sodium Chloride 0.9% 10 ML Syringe FLUSH PRN ×2 (05:27→20:23)
[2018-04-23] MEDS: Sodium Chloride 0.9% 10 ML Syringe IV SCH ×3 (05:27→20:21)
[2018-04-23] MEDS: Pantoprazole 40 MG Tab.CR PO SCH (06:31)
[2018-04-23] MEDS: Lisinopril 20 MG Tab PO SCH (07:56)
[2018-04-23] MEDS: Ferrous Sulfate 325 MG Tab PO SCH (07:56)
[2018-04-23] MEDS: Oxybutynin 5 MG Tab.ER PO SCH (07:56)
[2018-04-23] MEDS: Rifampin 150 MG Cap PO SCH ×2 (08:01→20:22)
[2018-04-23] MEDS: Aspirin 81 MG Tab.EC PO SCH ×2 (08:01→17:13)
[2018-04-23] MEDS: Miconazole 2% Vaginal Crm 45 GM Tube TOP SCH ×2 (08:02→21:06)
[2018-04-23] MEDS: Aluminum Hydroxide/Magnesium Hydroxide/Simethicone Susp 30 ML Cup PO PRN (20:24)
[2018-04-23] MEDS: Famotidine 20 MG Tab PO SCH (20:30)
[2018-04-24] MEDS: Sodium Chloride 0.9% 10 ML Syringe IV SCH ×3 (04:57→20:40)
[2018-04-24] MEDS: ceFAZolin 1 GM Vial IVPUSH SCH ×3 (04:57→20:40)
[2018-04-24] MEDS: Heparin Sodium 100 Units/ML 3 ML Syringe FLUSH SCH ×3 (04:58→20:42)
[2018-04-24] MEDS: Sodium Chloride 0.9% 10 ML Syringe FLUSH PRN ×2 (04:58→20:41)
[2018-04-24] MEDS: Pantoprazole 40 MG Tab.CR PO SCH (04:59)
[2018-04-24] MEDS: Aspirin 81 MG Tab.EC PO SCH ×2 (08:16→17:22)
[2018-04-24] MEDS: Lisinopril 20 MG Tab PO SCH (08:16)
[2018-04-24] MEDS: Ferrous Sulfate 325 MG Tab PO SCH (08:16)
[2018-04-24] MEDS: Rifampin 150 MG Cap PO SCH ×2 (08:16→20:43)
[2018-04-24] MEDS: Oxybutynin 5 MG Tab.ER PO SCH (08:16)
[2018-04-24] MEDS: Miconazole 2% Vaginal Crm 45 GM Tube TOP SCH ×2 (08:17→20:47)
[2018-04-24] MEDS: Famotidine 20 MG Tab PO SCH (20:43)
[2018-04-24] MEDS: Acetaminophen 325 MG Tab PO SCH (20:44)
[2018-04-24] MEDS: Aluminum Hydroxide/Magnesium Hydroxide/Simethicone Susp 30 ML Cup PO PRN (20:47)
[2018-04-25] MEDS: ceFAZolin 1 GM Vial IVPUSH SCH ×3 (05:07→20:18)
[2018-04-25] MEDS: Sodium Chloride 0.9% 10 ML Syringe IV SCH ×3 (05:07→20:18)
[2018-04-25] MEDS: Sodium Chloride 0.9% 10 ML Syringe FLUSH PRN (05:08)
[2018-04-25] MEDS: Heparin Sodium 100 Units/ML 3 ML Syringe FLUSH SCH ×3 (05:10→20:18)
[2018-04-25] MEDS: Pantoprazole 40 MG Tab.CR PO SCH (05:10)
[2018-04-25] MEDS: Ferrous Sulfate 325 MG Tab PO SCH (08:06)
[2018-04-25] MEDS: Oxybutynin 5 MG Tab.ER PO SCH (08:06)
[2018-04-25] MEDS: Lisinopril 20 MG Tab PO SCH (08:06)
[2018-04-25] MEDS: Rifampin 150 MG Cap PO SCH ×2 (08:06→20:18)
[2018-04-25] MEDS: Aspirin 81 MG Tab.EC PO SCH ×2 (08:06→17:47)
[2018-04-25] MEDS: Miconazole 2% Vaginal Crm 45 GM Tube TOP SCH (08:07)
[2018-04-25] MEDS: Acetaminophen 325 MG Tab PO SCH (20:17)
[2018-04-25] MEDS: Famotidine 20 MG Tab PO SCH (20:18)
[2018-04-26] MEDS: Sodium Chloride 0.9% 10 ML Syringe IV SCH ×3 (05:15→20:04)
[2018-04-26] MEDS: Heparin Sodium 100 Units/ML 3 ML Syringe FLUSH SCH ×3 (05:15→20:04)
[2018-04-26] MEDS: Pantoprazole 40 MG Tab.CR PO SCH (05:16)
[2018-04-26] MEDS: ceFAZolin 1 GM Vial IVPUSH SCH ×4 (05:16→20:04)
[2018-04-26] MEDS: Oxybutynin 5 MG Tab.ER PO SCH (08:42)
[2018-04-26] MEDS: Ferrous Sulfate 325 MG Tab PO SCH (08:42)
[2018-04-26] MEDS: Lisinopril 20 MG Tab PO SCH (08:42)
[2018-04-26] MEDS: Aspirin 81 MG Tab.EC PO SCH ×2 (08:42→18:00)
[2018-04-26] MEDS: Rifampin 150 MG Cap PO SCH ×2 (08:42→19:21)
[2018-04-26] MEDS: Acetaminophen 325 MG Tab PO SCH (19:21)
[2018-04-26] MEDS: Famotidine 20 MG Tab PO SCH (19:23)
[2018-04-27] MEDS: Pantoprazole 40 MG Tab.CR PO SCH (05:07)
[2018-04-27] MEDS: Heparin Sodium 100 Units/ML 3 ML Syringe FLUSH SCH ×3 (05:07→20:24)
[2018-04-27] MEDS: Sodium Chloride 0.9% 10 ML Syringe IV SCH ×3 (05:07→20:24)
[2018-04-27] MEDS: ceFAZolin 1 GM Vial IVPUSH SCH ×3 (05:07→20:24)
[2018-04-27] MEDS: Lisinopril 20 MG Tab PO SCH (08:04)
[2018-04-27] MEDS: Rifampin 150 MG Cap PO SCH ×2 (08:04→20:24)
[2018-04-27] MEDS: Ferrous Sulfate 325 MG Tab PO SCH (08:04)
[2018-04-27] MEDS: Aspirin 81 MG Tab.EC PO SCH ×2 (08:04→18:20)
[2018-04-27] MEDS: Oxybutynin 5 MG Tab.ER PO SCH (08:05)
[2018-04-27] MEDS: Acetaminophen 325 MG Tab PO SCH (20:24)
[2018-04-27] MEDS: Famotidine 20 MG Tab PO SCH (20:24)
[2018-04-28] MEDS: Sodium Chloride 0.9% 10 ML Syringe IV SCH ×3 (05:06→20:51)
[2018-04-28] MEDS: ceFAZolin 1 GM Vial IVPUSH SCH ×3 (05:06→20:52)
[2018-04-28] MEDS: Pantoprazole 40 MG Tab.CR PO SCH (05:06)
[2018-04-28] MEDS: Heparin Sodium 100 Units/ML 3 ML Syringe FLUSH SCH ×3 (05:06→20:54)
[2018-04-28] MEDS: Heparin Sodium 100 Units/ML 3 ML Syringe FLUSH PRN (06:24)
[2018-04-28] MEDS: Sodium Chloride 0.9% 10 ML Syringe FLUSH PRN ×2 (06:24→20:53)
[2018-04-28] MEDS: Lisinopril 20 MG Tab PO SCH (08:04)
[2018-04-28] MEDS: Rifampin 150 MG Cap PO SCH ×2 (08:04→20:50)
[2018-04-28] MEDS: Ferrous Sulfate 325 MG Tab PO SCH (08:04)
[2018-04-28] MEDS: Oxybutynin 5 MG Tab.ER PO SCH (08:04)
[2018-04-28] MEDS: Aspirin 81 MG Tab.EC PO SCH ×2 (08:04→17:03)
--- NOTE | 2018-04-28 11:56 | PCM.SN ---
- Free Text/Narrative Note: S: Patient seen today after nursing flagged re: patient meeting 2 sepsis criteria (tachycardia, leukopenia). Patient reports she is feeling well today. She does note that she did not sleep well last night. She continues to progress with PT and PT also notes that she is doing well. No pain in her hip. No fever or chills. No cough, shortness of breath, vomiting, or diarrhea. No skin wounds or sores. Heartburn is well controlled on the PPI in the am and H2 natasha in pm. She feels she is doing well and denies any other concerns. O: Vitals reviewed. Patient is alert and in no acute distress. Ambulating well with assistance of walker and stand-by of PT. MMM. Heart with RRR and normal S1 and S2. No leg swelling. Lungs CTAB. Abdomen soft, nontender, nondistended. Skin warm and dry. A/P: #1 Leukopenia, mild - Stable from last week. - Likely related to antibiotics. - ID will be notified as well. - Without worsening, likely will not require any changes in medications. - Will continue weekly labs while on antibiotics. #2 Tachycardia - This is now resolved at the time of my exam. - Monitor for now. - Will consider further work-up if persisting. - No evidence of sepsis otherwise. Pearl Messina MD
[2018-04-28] MEDS: Acetaminophen 325 MG Tab PO SCH (20:50)
[2018-04-28] MEDS: Famotidine 20 MG Tab PO SCH (20:51)
[2018-04-28] MEDS: Aluminum Hydroxide/Magnesium Hydroxide/Simethicone Susp 30 ML Cup PO PRN (21:13)
[2018-04-29] MEDS: ceFAZolin 1 GM Vial IVPUSH SCH ×3 (05:25→20:32)
[2018-04-29] MEDS: Sodium Chloride 0.9% 10 ML Syringe FLUSH PRN (05:25)
[2018-04-29] MEDS: Sodium Chloride 0.9% 10 ML Syringe IV SCH ×3 (05:25→20:32)
[2018-04-29] MEDS: Heparin Sodium 100 Units/ML 3 ML Syringe FLUSH SCH ×3 (05:27→20:32)
[2018-04-29] MEDS: Pantoprazole 40 MG Tab.CR PO SCH (05:27)
[2018-04-29] MEDS: Heparin Sodium 100 Units/ML 3 ML Syringe FLUSH PRN (06:36)
[2018-04-29] MEDS: Rifampin 150 MG Cap PO SCH ×2 (10:06→20:32)
[2018-04-29] MEDS: Aspirin 81 MG Tab.EC PO SCH ×2 (10:06→17:57)
[2018-04-29] MEDS: Ferrous Sulfate 325 MG Tab PO SCH (10:06)
[2018-04-29] MEDS: Oxybutynin 5 MG Tab.ER PO SCH (10:06)
[2018-04-29] MEDS: Lisinopril 20 MG Tab PO SCH (10:07)
[2018-04-29] MEDS: Acetaminophen 325 MG Tab PO SCH (20:32)
[2018-04-29] MEDS: Famotidine 20 MG Tab PO SCH (20:32)
[2018-04-30] MEDS: Sodium Chloride 0.9% 10 ML Syringe IV SCH ×3 (05:02→20:29)
[2018-04-30] MEDS: ceFAZolin 1 GM Vial IVPUSH SCH ×3 (05:03→20:30)
[2018-04-30] MEDS: Heparin Sodium 100 Units/ML 3 ML Syringe FLUSH SCH ×3 (05:03→20:29)
[2018-04-30] MEDS: Pantoprazole 40 MG Tab.CR PO SCH (05:03)
[2018-04-30] MEDS: Lisinopril 20 MG Tab PO SCH (08:20)
[2018-04-30] MEDS: Aspirin 81 MG Tab.EC PO SCH ×2 (08:20→17:22)
[2018-04-30] MEDS: Ferrous Sulfate 325 MG Tab PO SCH (08:20)
[2018-04-30] MEDS: Oxybutynin 5 MG Tab.ER PO SCH (08:20)
[2018-04-30] MEDS: Rifampin 150 MG Cap PO SCH ×2 (08:21→20:30)
[2018-04-30] MEDS: Acetaminophen 325 MG Tab PO SCH (20:30)
[2018-04-30] MEDS: Famotidine 20 MG Tab PO SCH (20:30)
[2018-05-01] MEDS: Sodium Chloride 0.9% 10 ML Syringe IV SCH ×3 (05:05→21:04)
[2018-05-01] MEDS: Heparin Sodium 100 Units/ML 3 ML Syringe FLUSH SCH ×3 (05:05→21:04)
[2018-05-01] MEDS: ceFAZolin 1 GM Vial IVPUSH SCH ×3 (05:05→20:55)
[2018-05-01] MEDS: Pantoprazole 40 MG Tab.CR PO SCH (05:05)
[2018-05-01] MEDS: Rifampin 150 MG Cap PO SCH ×2 (07:36→19:48)
[2018-05-01] MEDS: Oxybutynin 5 MG Tab.ER PO SCH (07:36)
[2018-05-01] MEDS: Aspirin 81 MG Tab.EC PO SCH ×2 (07:36→17:31)
[2018-05-01] MEDS: Ferrous Sulfate 325 MG Tab PO SCH (07:36)
[2018-05-01] MEDS: Lisinopril 20 MG Tab PO SCH (07:37)
[2018-05-01] MEDS: Famotidine 20 MG Tab PO SCH (19:48)
[2018-05-01] MEDS: Acetaminophen 325 MG Tab PO SCH (19:48)
[2018-05-02] MEDS: Pantoprazole 40 MG Tab.CR PO SCH (04:47)
[2018-05-02] MEDS: ceFAZolin 1 GM Vial IVPUSH SCH ×3 (04:51→21:29)
[2018-05-02] MEDS: Sodium Chloride 0.9% 10 ML Syringe IV SCH ×3 (04:59→21:29)
[2018-05-02] MEDS: Heparin Sodium 100 Units/ML 3 ML Syringe FLUSH SCH ×3 (04:59→21:41)
[2018-05-02] MEDS: Rifampin 150 MG Cap PO SCH ×2 (07:34→19:54)
[2018-05-02] MEDS: Oxybutynin 5 MG Tab.ER PO SCH (07:34)
[2018-05-02] MEDS: Ferrous Sulfate 325 MG Tab PO SCH (07:35)
[2018-05-02] MEDS: Aspirin 81 MG Tab.EC PO SCH ×2 (07:35→17:09)
[2018-05-02] MEDS: Lisinopril 20 MG Tab PO SCH (07:35)
[2018-05-02] MEDS: Famotidine 20 MG Tab PO SCH (19:53)
[2018-05-02] MEDS: Acetaminophen 325 MG Tab PO SCH (19:54)
[2018-05-02] MEDS: Sodium Chloride 0.9% 10 ML Syringe FLUSH PRN (21:40)
[2018-05-03] MEDS: ceFAZolin 1 GM Vial IVPUSH SCH ×3 (04:57→20:37)
[2018-05-03] MEDS: Sodium Chloride 0.9% 10 ML Syringe IV SCH ×3 (04:58→20:37)
[2018-05-03] MEDS: Pantoprazole 40 MG Tab.CR PO SCH (04:58)
[2018-05-03] MEDS: Heparin Sodium 100 Units/ML 3 ML Syringe FLUSH SCH ×3 (05:07→20:47)
[2018-05-03] MEDS: Sodium Chloride 0.9% 10 ML Syringe FLUSH PRN ×2 (05:07→20:47)
[2018-05-03] MEDS: Oxybutynin 5 MG Tab.ER PO SCH (07:44)
[2018-05-03] MEDS: Lisinopril 20 MG Tab PO SCH (07:44)
[2018-05-03] MEDS: Rifampin 150 MG Cap PO SCH ×2 (07:44→20:32)
[2018-05-03] MEDS: Ferrous Sulfate 325 MG Tab PO SCH (07:44)
[2018-05-03] MEDS: Aspirin 81 MG Tab.EC PO SCH ×2 (07:44→17:07)
[2018-05-03] MEDS: Famotidine 20 MG Tab PO SCH (20:32)
[2018-05-03] MEDS: Acetaminophen 325 MG Tab PO SCH (20:33)
[2018-05-04] MEDS: Sodium Chloride 0.9% 10 ML Syringe IV SCH ×3 (04:53→20:59)
[2018-05-04] MEDS: ceFAZolin 1 GM Vial IVPUSH SCH ×3 (04:53→20:59)
[2018-05-04] MEDS: Pantoprazole 40 MG Tab.CR PO SCH (04:54)
[2018-05-04] MEDS: Sodium Chloride 0.9% 10 ML Syringe FLUSH PRN ×2 (05:03→21:09)
[2018-05-04] MEDS: Heparin Sodium 100 Units/ML 3 ML Syringe FLUSH SCH ×3 (05:03→21:08)
[2018-05-04] MEDS: Ferrous Sulfate 325 MG Tab PO SCH (07:35)
[2018-05-04] MEDS: Oxybutynin 5 MG Tab.ER PO SCH (07:35)
[2018-05-04] MEDS: Rifampin 150 MG Cap PO SCH ×2 (07:36→20:55)
[2018-05-04] MEDS: Lisinopril 20 MG Tab PO SCH (07:36)
[2018-05-04] MEDS: Aspirin 81 MG Tab.EC PO SCH ×2 (07:36→17:19)
[2018-05-04] MEDS: Aluminum Hydroxide/Magnesium Hydroxide/Simethicone Susp 30 ML Cup PO PRN (13:05)
[2018-05-04] MEDS: Famotidine 20 MG Tab PO SCH (20:55)
[2018-05-04] MEDS: Acetaminophen 325 MG Tab PO SCH (20:55)
[2018-05-05] MEDS: Pantoprazole 40 MG Tab.CR PO SCH (05:03)
[2018-05-05] MEDS: Sodium Chloride 0.9% 10 ML Syringe IV SCH ×3 (05:04→20:45)
[2018-05-05] MEDS: ceFAZolin 1 GM Vial IVPUSH SCH ×3 (05:04→20:45)
[2018-05-05] MEDS: Heparin Sodium 100 Units/ML 3 ML Syringe FLUSH SCH ×3 (05:11→20:55)
[2018-05-05] MEDS: Sodium Chloride 0.9% 10 ML Syringe FLUSH PRN ×2 (05:11→20:55)
[2018-05-05] MEDS: Aspirin 81 MG Tab.EC PO SCH ×2 (07:59→17:01)
[2018-05-05] MEDS: Rifampin 150 MG Cap PO SCH ×2 (07:59→20:41)
[2018-05-05] MEDS: Oxybutynin 5 MG Tab.ER PO SCH (07:59)
[2018-05-05] MEDS: Ferrous Sulfate 325 MG Tab PO SCH (08:00)
[2018-05-05] MEDS: Lisinopril 20 MG Tab PO SCH (08:00)
[2018-05-05] MEDS: Famotidine 20 MG Tab PO SCH (20:41)
[2018-05-05] MEDS: Acetaminophen 325 MG Tab PO SCH (20:42)
[2018-05-06] MEDS: Pantoprazole 40 MG Tab.CR PO SCH (04:55)
[2018-05-06] MEDS: Sodium Chloride 0.9% 10 ML Syringe IV SCH ×3 (04:56→22:10)
[2018-05-06] MEDS: ceFAZolin 1 GM Vial IVPUSH SCH ×3 (04:58→22:09)
[2018-05-06] MEDS: Sodium Chloride 0.9% 10 ML Syringe FLUSH PRN (05:05)
[2018-05-06] MEDS: Heparin Sodium 100 Units/ML 3 ML Syringe FLUSH SCH ×3 (05:06→22:10)
[2018-05-06] MEDS: Oxybutynin 5 MG Tab.ER PO SCH (08:16)
[2018-05-06] MEDS: Aspirin 81 MG Tab.EC PO SCH ×2 (08:16→17:33)
[2018-05-06] MEDS: Ferrous Sulfate 325 MG Tab PO SCH (08:17)
[2018-05-06] MEDS: Lisinopril 20 MG Tab PO SCH (08:17)
[2018-05-06] MEDS: Rifampin 150 MG Cap PO SCH ×2 (11:02→22:09)
[2018-05-06] MEDS: Acetaminophen 325 MG Tab PO SCH (22:05)
[2018-05-06] MEDS: Famotidine 20 MG Tab PO SCH (22:09)
[2018-05-07] MEDS ORDERED: Heparin Sodium 100 Units/ML 3 ML Syringe ONE (04:40)
[2018-05-07] MEDS: Pantoprazole 40 MG Tab.CR PO SCH (07:23)
[2018-05-07] MEDS: Sodium Chloride 0.9% 10 ML Syringe IV SCH ×3 (07:23→21:50)
[2018-05-07] MEDS: Heparin Sodium 100 Units/ML 3 ML Syringe FLUSH SCH ×3 (07:23→21:50)
[2018-05-07] MEDS: ceFAZolin 1 GM Vial IVPUSH SCH ×3 (07:23→21:44)
[2018-05-07] MEDS: Lisinopril 20 MG Tab PO SCH (08:14)
[2018-05-07] MEDS: Rifampin 150 MG Cap PO SCH ×2 (08:15→19:36)
[2018-05-07] MEDS: Aspirin 81 MG Tab.EC PO SCH ×2 (08:15→18:02)
[2018-05-07] MEDS: Oxybutynin 5 MG Tab.ER PO SCH (08:15)
[2018-05-07] MEDS: Ferrous Sulfate 325 MG Tab PO SCH (08:15)
[2018-05-07] MEDS: Acetaminophen 325 MG Tab PO SCH (19:35)
[2018-05-07] MEDS: Famotidine 20 MG Tab PO SCH (19:36)
[2018-05-08] MEDS: ceFAZolin 1 GM Vial IVPUSH SCH ×3 (05:00→20:35)
[2018-05-08] MEDS: Pantoprazole 40 MG Tab.CR PO SCH (05:08)
[2018-05-08] MEDS: Sodium Chloride 0.9% 10 ML Syringe IV SCH ×3 (05:08→20:41)
[2018-05-08] MEDS: Heparin Sodium 100 Units/ML 3 ML Syringe FLUSH SCH ×3 (05:08→20:42)
[2018-05-08] MEDS: Aspirin 81 MG Tab.EC PO SCH ×2 (08:02→17:25)
[2018-05-08] MEDS: Lisinopril 20 MG Tab PO SCH (08:02)
[2018-05-08] MEDS: Ferrous Sulfate 325 MG Tab PO SCH (08:02)
[2018-05-08] MEDS: Oxybutynin 5 MG Tab.ER PO SCH (08:02)
[2018-05-08] MEDS: Rifampin 150 MG Cap PO SCH ×2 (08:02→20:31)
[2018-05-08] MEDS: Famotidine 20 MG Tab PO SCH (20:31)
[2018-05-08] MEDS: Acetaminophen 325 MG Tab PO SCH (20:31)
[2018-05-09] MEDS: ceFAZolin 1 GM Vial IVPUSH SCH ×3 (05:01→21:03)
[2018-05-09] MEDS: Pantoprazole 40 MG Tab.CR PO SCH (05:01)
[2018-05-09] MEDS: Sodium Chloride 0.9% 10 ML Syringe IV SCH ×3 (05:08→21:38)
[2018-05-09] MEDS: Heparin Sodium 100 Units/ML 3 ML Syringe FLUSH SCH ×3 (05:09→21:38)
[2018-05-09] MEDS: Lisinopril 20 MG Tab PO SCH (10:22)
[2018-05-09] MEDS: Rifampin 150 MG Cap PO SCH ×2 (10:22→21:02)
[2018-05-09] MEDS: Oxybutynin 5 MG Tab.ER PO SCH (10:22)
[2018-05-09] MEDS: Ferrous Sulfate 325 MG Tab PO SCH (10:22)
[2018-05-09] MEDS: Aspirin 81 MG Tab.EC PO SCH ×2 (10:22→18:33)
[2018-05-09] MEDS: Famotidine 20 MG Tab PO SCH (21:02)
[2018-05-09] MEDS: Acetaminophen 325 MG Tab PO SCH (21:02)
[2018-05-09] MEDS: Heparin Sodium 100 Units/ML 3 ML Syringe FLUSH PRN (21:04)
[2018-05-10] MEDS: ceFAZolin 1 GM Vial IVPUSH SCH ×3 (05:28→20:43)
[2018-05-10] MEDS: Heparin Sodium 100 Units/ML 3 ML Syringe FLUSH SCH ×3 (05:29→20:49)
[2018-05-10] MEDS: Pantoprazole 40 MG Tab.CR PO SCH (05:30)
[2018-05-10] MEDS: Sodium Chloride 0.9% 10 ML Syringe IV SCH ×3 (05:30→20:49)
[2018-05-10] MEDS: Lisinopril 20 MG Tab PO SCH (10:29)
[2018-05-10] MEDS: Oxybutynin 5 MG Tab.ER PO SCH (10:34)
[2018-05-10] MEDS: Rifampin 150 MG Cap PO SCH ×2 (10:34→20:42)
[2018-05-10] MEDS: Ferrous Sulfate 325 MG Tab PO SCH (10:34)
[2018-05-10] MEDS: Aspirin 81 MG Tab.EC PO SCH ×2 (10:34→18:36)
[2018-05-10] MEDS: Heparin Sodium 100 Units/ML 3 ML Syringe FLUSH PRN (11:11)
[2018-05-10] MEDS: Sodium Chloride 0.9% 10 ML Syringe FLUSH PRN ×2 (11:11→20:42)
[2018-05-10] MEDS: Famotidine 20 MG Tab PO SCH (20:42)
[2018-05-10] MEDS: Acetaminophen 325 MG Tab PO SCH (20:42)
[2018-05-11] MEDS: Pantoprazole 40 MG Tab.CR PO SCH (05:05)
[2018-05-11] MEDS: Sodium Chloride 0.9% 10 ML Syringe FLUSH PRN ×3 (05:06→20:47)
[2018-05-11] MEDS: ceFAZolin 1 GM Vial IVPUSH SCH ×3 (05:07→20:48)
[2018-05-11] MEDS: Sodium Chloride 0.9% 10 ML Syringe IV SCH ×3 (05:12→20:53)
[2018-05-11] MEDS: Heparin Sodium 100 Units/ML 3 ML Syringe FLUSH SCH ×3 (05:12→20:54)
[2018-05-11] MEDS: Rifampin 150 MG Cap PO SCH ×2 (07:45→20:44)
[2018-05-11] MEDS: Lisinopril 20 MG Tab PO SCH (07:46)
[2018-05-11] MEDS: Oxybutynin 5 MG Tab.ER PO SCH (07:46)
[2018-05-11] MEDS: Ferrous Sulfate 325 MG Tab PO SCH (07:47)
[2018-05-11] MEDS: Aspirin 81 MG Tab.EC PO SCH ×2 (07:47→17:16)
[2018-05-11] MEDS: Acetaminophen 325 MG Tab PO SCH (20:44)
[2018-05-11] MEDS: Famotidine 20 MG Tab PO SCH (20:44)
[2018-05-12] MEDS: Sodium Chloride 0.9% 10 ML Syringe FLUSH PRN (05:10)
[2018-05-12] MEDS: ceFAZolin 1 GM Vial IVPUSH SCH ×3 (05:10→20:58)
[2018-05-12] MEDS: Pantoprazole 40 MG Tab.CR PO SCH (05:13)
[2018-05-12] MEDS: Sodium Chloride 0.9% 10 ML Syringe IV SCH ×3 (05:18→20:59)
[2018-05-12] MEDS: Heparin Sodium 100 Units/ML 3 ML Syringe FLUSH SCH ×3 (05:18→20:58)
[2018-05-12] MEDS: Rifampin 150 MG Cap PO SCH ×2 (08:03→20:57)
[2018-05-12] MEDS: Aspirin 81 MG Tab.EC PO SCH ×2 (08:03→17:52)
[2018-05-12] MEDS: Ferrous Sulfate 325 MG Tab PO SCH (08:03)
[2018-05-12] MEDS: Oxybutynin 5 MG Tab.ER PO SCH (08:03)
[2018-05-12] MEDS: Lisinopril 20 MG Tab PO SCH (08:03)
[2018-05-12] MEDS: Famotidine 20 MG Tab PO SCH (20:58)
[2018-05-12] MEDS: Acetaminophen 325 MG Tab PO SCH (20:58)
[2018-05-13] MEDS: Heparin Sodium 100 Units/ML 3 ML Syringe FLUSH SCH (05:00)
[2018-05-13] MEDS: Sodium Chloride 0.9% 10 ML Syringe IV SCH (05:00)
[2018-05-13] MEDS: Pantoprazole 40 MG Tab.CR PO SCH (05:10)
[2018-05-13] MEDS ORDERED: Rifampin 150 MG Cap PO ONE (08:47)
[2018-05-13] MEDS: Aspirin 81 MG Tab.EC PO SCH (09:05)
[2018-05-13] MEDS: Lisinopril 20 MG Tab PO SCH (09:05)
[2018-05-13] MEDS: Ferrous Sulfate 325 MG Tab PO SCH (09:05)
[2018-05-13] MEDS: Oxybutynin 5 MG Tab.ER PO SCH (09:05)
[2018-05-13] MEDS ORDERED: Levofloxacin 250 MG Tab PO SCH (09:30)
--- NOTE | 2018-05-13 10:26 | PCM.DCSUM1 ---
Discharge Summary - Hospital Course Brief History: Mrs. Deras is an 82 yo female who was admitted to swing bed for IV antibiotics and PT following a right hip infection s/p HERMINIO revision. - Discharge Data Discharge Date: 05/13/18 Discharge Disposition: Home, Self-Care 01 Condition: Good - Discharge Diagnosis/Problem(s) (1) Infection of prosthetic hip joint SNOMED Code(s): 605785908 ICD Code: T84.59XA - INFECT/INFLM REACTION DUE TO OTH INTERNAL JOINT PROSTH, INIT; Z96.649 - PRESENCE OF UNSPECIFIED ARTIFICIAL HIP JOINT Status: Acute Current Visit: Yes Qualifiers: Encounter type: sequela Qualified Code(s): T84.59XS - Infection and inflammatory reaction due to other internal joint prosthesis, sequela; Z96.649 - Presence of unspecified artificial hip joint (2) Coag negative Staphylococcus bacteremia SNOMED Code(s): 634977923291, 291964618348477 ICD Code: R78.81 - BACTEREMIA Status: Acute Current Visit: Yes (3) GERD (gastroesophageal reflux disease) SNOMED Code(s): 839869377 ICD Code: K21.9 - GASTRO-ESOPHAGEAL REFLUX DISEASE WITHOUT ESOPHAGITIS Status: Acute Current Visit: Yes (4) Anemia SNOMED Code(s): 162705813 ICD Code: D64.9 - ANEMIA, UNSPECIFIED Status: Acute Current Visit: Yes Qualifiers: Anemia type: other cause Other causes of anemia: acute posthemorrhagic Qualified Code(s): D62 - Acute posthemorrhagic anemia (5) Constipation SNOMED Code(s): 03245386 ICD Code: K59.00 - CONSTIPATION, UNSPECIFIED Status: Acute Current Visit : Yes Qualifiers: Constipation type: drug induced constipation Qualified Code(s): K59.03 - Drug induced constipation (6) COPD (chronic obstructive pulmonary disease) SNOMED Code(s): 11765303 ICD Code: J44.9 - CHRONIC OBSTRUCTIVE PULMONARY DISEASE, UNSPECIFIED Status : Chronic Current Visit: Yes Qualifiers: COPD type: unspecified COPD Qualified Code(s): J44.9 - Chronic obstructive pulmonary disease, unspecified (7) Hypertension SNOMED Code(s): 48563339 ICD Code: I10 - ESSENTIAL (PRIMARY) HYPERTENSION Status: Chronic Current Visit: Yes Qualifiers: Hypertension type: essential hypertension Qualified Code(s): I10 - Essential (primary) hypertension (8) Mitral regurgitation SNOMED Code(s): 62233666 ICD Code: I34.0 - NONRHEUMATIC MITRAL (VALVE) INSUFFICIENCY Status: Chronic Current Visit: Yes Qualifiers: Cardiac valve disease etiology: nonrheumatic Qualified Code(s): I34.0 - Nonrheumatic mitral (valve) insufficiency (9) OAB (overactive bladder) SNOMED Code(s): 403152537 ICD Code: N32.81 - OVERACTIVE BLADDER Status: Chronic Current Visit: Yes (10) Osteoporosis SNOMED Code(s): 97287848 ICD Code: M81.0 - AGE-RELATED OSTEOPOROSIS W/O CURRENT PATHOLOGICAL FRACTURE Status: Chronic Current Visit: Yes Qualifiers: Osteoporosis type: age-related Presence of current pathological fracture: without current pathological fracture Qualified Code(s): M81.0 - Age-related osteoporosis without current pathological fracture (11) Hypokalemia SNOMED Code(s): 13641977 ICD Code: E87.6 - HYPOKALEMIA Status: Acute Current Visit: Yes - Patient Summary/Data Operative Procedure(s) Performed: none Complications: none Consults: Consultations 04/03/18 18:31 OT Evaluation and Treatment [CONS] Routine PT Evaluation and Treatment [CONS] Routine 05/13/18 09:48 Consult to Physical Therapy [PT Evaluation and Treatment] [CONS] Routine Labs Pending at D/C: none Recommended Follow-up Testing/Procedures: none Planned Operative Procedure(s) after DC: none Hospital Course: She did very well during her swing bed stay. She quickly made gains with PT and will continue outpatient PT for a few more weeks. She tolerated her IV antibiotics without too much issue. She did have a progressive drop in her WBC felt likely to be related to the antibiotics but otherwise no issues were noted. Her hospitalization was complicated by GERD, felt likely to be related to the BID aspirin. This was eventually well controlled on a morning PPI and bedtime H2-natasha. These will be continued until her hospital follow-up. She has 2 more days of the BID aspirin and can then return to once daily. Her stay was also complicated by elevated blood pressures and she was started on lisinopril for this instead of her HCTZ she was on previously as this caused hypokalemia. She tolerated the lisinopril without any issue and this was titrated up to achieve blood pressure control. Her hospitalization was otherwise uncomplicated. - Patient Instructions Diet: Usual Diet as Tolerated - Discharge Plan *PRESCRIPTION DRUG MONITORING PROGRAM REVIEWED*: No *COPY OF PRESCRIPTION DRUG MONITORING REPORT IN PATIENT ISH: No Prescriptions/Med Rec: Lisinopril [Prinivil] 20 mg PO DAILY #30 tablet Pantoprazole [ProTONIX] 40 mg PO DAILY@0500 #30 tab.cr Home Medications: Home Meds Oxybutynin [Oxybutynin ER] 5 mg PO DAILY 08/06/17 [History] Denosumab [Prolia] 60 mg SQ Q180D 08/08/17 [History] Acetaminophen 650 mg PO Q6H 04/03/18 [History] Calcium Citrate/Vitamin D3 [Calcium Cit-Vit D 315-200] 1 tab PO BIDMEALS [History] Polyethylene Glycol 3350 [Miralax] 17 gm PO DAILY PRN 04/03/18 [History] Sennosides/Docusate Sodium [Senna Plus Tablet] 2 tab PO BID PRN 04/03/18 [ History] Acetaminophen [Tylenol] 650 mg PO BEDTIME tablet 05/13/18 [Rx] Aspirin [Halfprin] 81 mg PO BIDMEALS tab.ec 05/13/18 [Rx] Famotidine [Pepcid] 20 mg PO BEDTIME tablet 05/13/18 [Rx] Ferrous Sulfate 325 mg PO WITHBREAKFAST tablet 05/13/18 [Rx] Lisinopril [Prinivil] 20 mg PO DAILY #30 tablet 05/13/18 [Rx] Pantoprazole [ProTONIX] 40 mg PO DAILY@0500 #30 tab.cr 05/13/18 [Rx] levoFLOXacin [Levaquin] 750 mg PO Q48H tablet 05/13/18 [Rx] rifAMPin [Rifadin] 300 mg PO BID cap 05/13/18 [Rx] Patient Handouts: Rifampin capsules, PICC Removal, Adult, Levofloxacin tablets - Discharge Summary/Plan Comment DC Time >30 min.: No - General Info Date of Service: 05/13/18 Subjective Update: Patient is feeling well this morning and is prepared for dismissal home. No pain in the right hip at all. Her mobility is improving each day. She has been eating well and denies any bowel or bladder issues. No fever or chills. GERD is well controlled at this time. She denies any other questions or concerns today. - Review of Systems General: Reports: No Symptoms HEENT: Reports: No Symptoms Pulmonary: Reports: No Symptoms Cardiovascular: Reports: No Symptoms Gastrointestinal: Reports: No Symptoms Genitourinary: Reports: No Symptoms Musculoskeletal: Reports: No Symptoms Skin: Reports: No Symptoms Neurological: Reports: No Symptoms - Patient Data Vitals - Most Recent: Last Vital Signs Temp 36.8 C 05/13/18 05:00 Pulse 82 05/13/18 05:00 Resp 16 05/13/18 05:00 BP 152/74 H 05/13/18 05:00 Pulse Ox 95 05/13/18 05:00 Weight - Most Recent: 70.987 kg I&O - Last 24 hours: Intake & Output 05/12/18 05/13/18 05/13/18 22:59 06:59 14:59 Intake Total 180 180 Balance 180 180 Med Orders - Current: Current Medications Acetaminophen (Tylenol) 650 mg PO BEDTIME [facility] Last Admin: 05/12/18 20:58 Dose: 650 mg Al Hydroxide/Mg Hydroxide (Mag-Al Plus) 30 ml PO Q8H PRN PRN Reason: acid reflux Last Admin: 05/04/18 13:05 Dose: 30 ml Aspirin (Halfprin) 81 mg PO BIDMEALS SIMEON Last Admin: 05/13/18 09:05 Dose: 81 mg Benzocaine/Menthol (Cepacol Sore Throat) 1 lozenge MUCMEM Q2H PRN PRN Reason: Sore Throat Last Admin: 04/17/18 01:26 Dose: 1 lozenge Calcium Carbonate/Glycine (Tums Extra Strength) 750 mg PO Q4H PRN PRN Reason: Dyspepsia Last Admin: 04/17/18 04:10 Dose: 750 mg Famotidine (Pepcid) 20 mg PO BEDTIME [facility] Last Admin: 05/12/18 20:58 Dose: 20 mg Ferrous Sulfate (Ferrous Sulfate) 325 mg PO WITHBREAKFAST [facility] Last Admin: 05/13/18 09:05 Dose: 325 mg Heparin Sodium (Porcine) (Heparin Lock Flush 100 Units/Ml) 300 unit FLUSH ASDIRECTED PRN PRN Reason: Keep Vein Open Last Admin: 05/10/18 11:11 Dose: 300 unit Heparin Sodium (Porcine) (Heparin Lock Flush 100 Units/Ml) 300 unit FLUSH Q8H [facility] Last Admin: 05/13/18 05:00 Dose: Not Given Levofloxacin (Levaquin) 750 mg PO Q48H [facility] Last Admin: 05/13/18 10:00 Dose: 750 mg Lisinopril (Prinivil) 20 mg PO DAILY [facility] Last Admin: 05/13/18 09:05 Dose: 20 mg Loperamide HCl (Imodium) 2 mg PO Q4H PRN PRN Reason: Diarrhea Oxybutynin Chloride (Oxybutynin Er) 5 mg PO DAILY [facility] Last Admin: 05/13/18 09:05 Dose: 5 mg Pantoprazole Sodium (Protonix) 40 mg PO DAILY@0500 [facility] Last Admin: 05/13/18 05:10 Dose: 40 mg Polyethylene Glycol (Miralax) 17 gm PO DAILY PRN PRN Reason: Constipation Rifampin (Rifadin) 300 mg PO BID [facility] Senna/Docusate Sodium (Senna Plus) 2 tab PO BID PRN PRN Reason: Constipation Sodium Chloride (Saline Flush) 10 ml FLUSH ASDIRECTED PRN PRN Reason: Other Last Admin: 05/12/18 05:10 Dose: 10 ml Sodium Chloride (Saline Flush) 10 ml IV Q8H [facility] Last Admin: 05/13/18 05:00 Dose: Not Given Discontinued Medications Acetaminophen (Tylenol) 650 mg PO Q6H [facility] Last Admin: 04/05/18 12:14 Dose: 650 mg Acetaminophen (Tylenol) 650 mg PO Q6H [facility] Last Admin: 04/23/18 06:31 Dose: 650 mg Al Hydroxide/Mg Hydroxide (Gi Cocktail) 30 ml PO ONETIME ONE Stop: 04/10/18 06:32 Last Admin: 04/10/18 06:40 Dose: 30 ml Aspirin (Aspirin) 81 mg PO BIDMEALS [facility] Last Admin: 04/07/18 07:50 Dose: 81 mg Cefazolin Sodium (Ancef) 2 gm IVPUSH Q8H [facility] Last Admin: 04/03/18 21:32 Dose: Not Given Cefazolin Sodium (Ancef) 2 gm IVPUSH Q8H [facility] Stop: 05/12/18 21:01 Last Admin: 05/12/18 20:58 Dose: 2 gm Clonidine HCl (Catapres) 0.1 mg PO ONETIME STA Stop: 04/04/18 23:37 Last Admin: 04/04/18 23:48 Dose: 0.1 mg Enoxaparin Sodium (Lovenox) 40 mg SUBCUT DAILY [facility] Heparin Sodium (Porcine) (Heparin Lock Flush 100 Units/Ml) 300 unit FLUSH Q8H [facility] Last Admin: 04/03/18 22:12 Dose: Not Given Heparin Sodium (Porcine) (Heparin Lock Flush 100 Units/Ml) Confirm Administered Dose 300 unit .ROUTE .STK-MED ONE Stop: 05/07/18 04:41 Last Admin: 05/07/18 07:23 Dose: Not Given Hydrochlorothiazide (Hydrochlorothiazide) 12.5 mg PO DAILY [facility] Last Admin: 04/07/18 07:50 Dose: 12.5 mg Lisinopril (Prinivil) 2.5 mg PO DAILY [facility] Last Admin: 04/07/18 07:50 Dose: 2.5 mg Lisinopril (Prinivil) 5 mg PO DAILY [facility] Lisinopril (Prinivil) 10 mg PO DAILY [facility] Last Admin: 04/09/18 08:17 Dose: 10 mg Miconazole (Miconazole 2% Vaginal) 0 gm TOP BID [facility] Stop: 04/25/18 08:00 Last Admin: 04/25/18 08:07 Dose: 1 applic Ondansetron HCl (Zofran Odt) 4 mg PO Q6H PRN PRN Reason: Nausea/Vomiting Last Admin: 04/05/18 21:18 Dose: 4 mg Oxycodone HCl (Oxycodone) 5 mg PO Q4H PRN PRN Reason: Pain (severe 7-10) Last Admin: 04/07/18 21:40 Dose: 5 mg Pantoprazole Sodium (Protonix) 40 mg PO BEDTIME [facility] Stop: 04/17/18 20:01 Last Admin: 04/17/18 20:07 Dose: 40 mg Pantoprazole Sodium (Protonix) 40 mg PO DAILY@0700 [facility] Last Admin: 04/23/18 06:31 Dose: 40 mg Potassium Chloride (Klor-Con 10) 40 meq PO BIDMEALS [facility] Last Admin: 04/07/18 18:09 Dose: 40 meq Rifampin (Rifadin) 300 mg PO BID [facility] Stop: 05/12/18 20:01 Last Admin: 05/12/18 20:57 Dose: 300 mg Rifampin (Rifadin) 300 mg PO ONETIME ONE Stop: 05/13/18 08:48 Last Admin: 05/13/18 09:07 Dose: 300 mg Sodium Chloride (Saline Flush) 10 ml IV Q8H [facility] Last Admin: 04/03/18 21:31 Dose: Not Given Tramadol HCl (Ultram) 50 mg PO Q6H PRN PRN Reason: Pain (moderate 4-6) Last Admin: 04/09/18 23:40 Dose: 50 mg - Exam General: Reports: Alert, Cooperative, No Acute Distress HEENT: Reports: Mucous Membr. Moist/[place] Neck: Reports: Supple, Trachea Midline, No Thyromegaly. Denies: Lymphadenopathy Lungs: Reports: Clear to Auscultation, Normal Respiratory Effort Cardiovascular: Reports: Regular Rate, Regular Rhythm, Murmurs GI/Abdominal Exam: Normal Bowel Sounds, Soft, Non-Tender, No Organomegaly, No Distention, No Mass Extremities: Non-Tender, No Pedal Edema, Normal Capillary Refill Skin: Reports: Warm, Dry, Intact *Q Meaningful Use (DIS) - VTE *Q VTE Anticoagulation Contraindications: Med/TX Not Indicated/Need
[2018-05-13] MEDS ORDERED: Rifampin 150 MG Cap PO SCH (20:00)
== END 2018-05-13 12:30 | disposition home or self-care (01) | DRG 560 ==
LOC: VM.MS 14:51
PROVIDERS: ADMIT Family Medicine; ATTEND Family Medicine
DX: T84.51XA Infection and inflammatory reaction due to internal right hip prosthesis, initial encounter (principal); D62 Acute posthemorrhagic anemia; R78.81 Bacteremia; B37.49 Other urogenital candidiasis; Y83.8 Other surgical procedures as the cause of abnormal reaction of the patient, or of later complication, without mention of misadventure at the time of the procedure; K59.00 Constipation, unspecified; I10 Essential (primary) hypertension; J44.9 Chronic obstructive pulmonary disease, unspecified; I34.0 Nonrheumatic mitral (valve) insufficiency; N32.81 Overactive bladder; E87.6 Hypokalemia; T50.2X5A Adverse effect of carbonic-anhydrase inhibitors, benzothiadiazides and other diuretics, initial encounter; Y92.230 Patient room in hospital as the place of occurrence of the external cause; M81.0 Age-related osteoporosis without current pathological fracture; K21.9 Gastro-esophageal reflux disease without esophagitis; Z88.8 Allergy status to other drugs, medicaments and biological substances; Z79.899 Other long term (current) drug therapy; Z79.01 Long term (current) use of anticoagulants; Z87.891 Personal history of nicotine dependence; Z85.828 Personal history of other malignant neoplasm of skin
CPT/HCPCS: 36415; 80048; 82565; 83735; 84460; 85025; 93005; 94760; 97110-GO; 97110-GP; 97116-GP; 97161-GP; 97165-GO; 97530-GP; 97535-GO; A9270-GY; J0690; J1642; J7050

== ENCOUNTER 2021-07-17 16:52 | Inpatient (IN) | payer MEDICARE, OTHER ==
--- NOTE | 2021-07-17 17:44 | EDM.PDOC ---
ED HPI GENERAL MEDICAL PROBLEM - General Chief Complaint: General Stated Complaint: Abnormal lab work diarrhea Time Seen by Provider: 07/17/21 17:15 Source of Information: Reports: Patient History Limitations: Reports: No Limitations - History of Present Illness INITIAL COMMENTS - FREE TEXT/NARRATIVE: Patient presents here to the ER after she was called by her primary care [facility] telling her she needed to come to the emergency room due to her abnormal lab work. She was seen today about 1:00 for a chronic venous stasis issue and for diarrhea after taking antibiotics for the second round now. And received a call about 45 minutes prior to arrival that she needed to emergently go to the emergency room. Patient states she feels fine overall but is had some ongoing diarrhea for the last 2 days about 3-4 bowel movements yesterday and about the same today. Other than that she states she feels fine she has no other complaints at this time Patient states that they wrapped her right leg today for treatment secondary to the ongoing oozing and weeping of fluids versus put her on a third round of antibiotics. I reviewed the chart for the patient she has been on Keflex and Septra Today her potassium is 6.4 BUN is 39 creatinine is 2.46 All vital signs are normal and stable Duration: Hour(s): Associated Symptoms: Reports: Other (Patient has nausea and vomiting the last 2 days but states today she has none is able to hold down some chicken broth). Denies: Nausea/Vomiting - Related Data Allergies Allergy/AdvReac Type Severity Reaction Status Date / Time nicotine Allergy Rash Verified 07/17/21 17:17 codeine AdvReac Nausea and Verified 07/17/21 17:17 Vomiting Home Meds: Home Meds Denosumab [Prolia] 60 mg SQ Q180D 08/08/17 [History] Calcium Citrate/Vitamin D3 [Calcium Cit-Vit D 315-200] 1 tab PO BIDMEALS 04/03/18 [History] Erythromycin Base [Erythromycin 0.5% Ophth Oint] 1 applic EYEBOTH BEDTIME 07/17/21 [History] Furosemide [Lasix] 20 mg PO ASDIRECTED 07/17/21 [History] Loperamide [Imodium] 2 mg PO ASDIRECTED PRN 07/17/21 [History] Losartan [Cozaar] 100 mg PO DAILY 07/17/21 [History] cycloSPORINE [Restasis Multidose] 5.5 ml OP BID 07/17/21 [History] Past Medical History HEENT History: Reports: None Cardiovascular History: Reports: Heart Murmur, High Cholesterol, Other (See Below) Other Cardiovascular History: Mitral valve insuffiency. edema Respiratory History: Reports: COPD, Other (See Below) Other Respiratory History: pneumonia Gastrointestinal History: Reports: Colon Polyp, Hemorrhoids Genitourinary History: Reports: Other (See Below) Other Genitourinary History: Over active bladder Musculoskeletal History: Reports: Fracture, Osteoporosis Other Musculoskeletal History: Closed right hip fx. right wrist fx. 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 Dermatologic History: Reports: None - Infectious Disease History Infectious Disease History: Reports: None - Past Surgical History Head Surgeries/Procedures: Reports: None HEENT Surgical History: Reports: Adenoidectomy, Tonsillectomy Cardiovascular Surgical History: Reports: None GI Surgical History: Reports: Colonoscopy, Colostomy, Hernia, Abdominal, Other (See Below) Other GI Surgeries/Procedures: colostomy with reversal Neurological Surgical History: Reports: None Musculoskeletal Surgical History: Reports: Carpal Tunnel, Hip Replacement Other Musculoskeletal Surgeries/Procedures:: Right Social & Family History - Family History Family Medical History: No Pertinent Family History Cardiac: Reports: CAD - Tobacco Use Tobacco Use Status *Q: Never Tobacco User - Caffeine Use Caffeine Use: Reports: Coffee - Living Situation & Occupation Living situation: Reports: , Alone 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 Denies: Weakness, Fatigue HEENT: Reports: No Symptoms Respiratory: Reports: No Symptoms Cardiovascular: Reports: No Symptoms Endocrine: Reports: No Symptoms GI/Abdominal: Reports: Diarrhea, Other (Patient denies any foul-smelling bowel movements or discoloration). Denies: No Symptoms, Abdominal Pain, Anorexia, Black Stool, Bloody Stool, Constipation, Decreased Appetite, Difficulty Swallowing, Distension, Flatus, Hematemesis, Hematochezia, Mucous in Stool, Nausea, Vomiting : Reports: No Symptoms Musculoskeletal: Reports: No Symptoms Skin: Reports: No Symptoms Neurological: Reports: No Symptoms Psychiatric: Reports: No Symptoms Hematologic/Lymphatic: Reports: No Symptoms Immunologic: Reports: No Symptoms ED EXAM, GENERAL - Physical Exam Exam: See Below Exam Limited By: No Limitations General Appearance: Alert, WD/WN, No Apparent Distress Eye Exam: Bilateral Eye: EOMI, Normal Inspection, PERRL Nose: Normal Inspection, Normal Mucosa, No Blood Throat/Mouth: Normal Inspection, Normal Lips, Normal Teeth, Normal Gums, Normal Oropharynx, Normal Voice, No Airway Compromise, Other (mmm) Neck: Normal Inspection, Supple, Non-Tender, Full Range of Motion Respiratory/Chest: No Respiratory Distress, Lungs Clear, Normal Breath Sounds, No Accessory Muscle Use, Chest Non-Tender Cardiovascular: Normal Peripheral Pulses, Regular Rate, Rhythm, No Edema, No Gallop, No JVD, No Murmur, No Rub GI/Abdominal: Normal Bowel Sounds, Soft, Non-Tender, No Organomegaly, No Distention. No: Guarding, Rigid, Rebound, Tender Extremities: Normal Inspection, Normal Range of Motion, No Pedal Edema. No: Non-Tender Neurological: Alert, Oriented, CN II-XII Intact, Normal Cognition, Normal Gait, Normal Reflexes, Other (with rollar walker ) Psychiatric: Normal Affect, Normal Mood Skin Exam: Warm, Dry (Secondary to the patient just having the area wrapped in her left lower extremity I will not unwrap it to view the extremity. Patient states that there is no signs of any redness or streaking or infection she states her primary care provider looked at it today Lauren.), Intact, Normal Color #1 Interpretation EKG Date: 07/17/21 Time: 18:00 Rhythm: NSR [place]: Normal P-Wave: Present QRS: Normal ST-T: Normal QT: Normal Course - Vital Signs Text/Narrative:: Reviewed last patient's labs from first July potassium 3.6 BUN/creatinine 151.0 elevated today probably secondary from the Septra antibiotic usage EKG shows normal sinus rhythm no acute findings with elevated T waves or QT changes We will treat with one amp D50 10 units of insulin calcium gluconate Kayexalate will give the patient normal saline at 100 mL/h Patient will be admitted to Dr. Amada Vidal Last Recorded V/S: Last Vital Signs Temp 36.1 C 07/17/21 16:52 Pulse 89 07/17/21 16:52 Resp 18 07/17/21 16:52 BP 138/60 07/17/21 16:52 Pulse Ox 98 07/17/21 16:52 - Orders/Labs/Meds Orders: Active Orders 24 hr Category Date Time Status Patient Status [ADT] Stat ADT 07/17/21 18:06 Ordered Dextrose 50% in Water Med 07/17/21 17:54 Ordered 50 ml IVPUSH ASDIRECTED PRN Glucagon,Human Recombinant [GlucaGen] Med 07/17/21 17:54 Stop Req 1 mg IM ASDIRECTED PRN Sodium Chloride 0.9% @ 100 MLS/HR(1000ml) Med 07/17/21 18:00 Ordered Sodium Chloride 0.9% [Normal Saline] 1,000 ml IV ASDIRECTED Medication Orders Dextrose/Water (50% Dextrose In Water 50 Ml Syringe) 50 ml IVPUSH ASDIRECTED PRN PRN Reason: Hypoglycemia Glucagon (Glucagon,Human Recombinant 1 Mg Vial) 1 mg IM ASDIRECTED PRN PRN Reason: Hypoglycemia Sodium Chloride (Normal Saline) 1,000 mls @ 100 mls/hr IV ASDIRECTED SIMEON Meds: Medications Generic Name Dose Route Start Last Admin Trade Name Freq PRN Reason Stop Dose Admin Dextrose/Water 50 ml 07/17/21 17:54 50% Dextrose In Water 50 Ml Syringe IVPUSH ASDIRECTED PRN Hypoglycemia Glucagon 1 mg 07/17/21 17:54 Glucagon,Human Recombinant 1 Mg Vial IM ASDIRECTED PRN Hypoglycemia Sodium Chloride 1,000 mls @ 100 mls/hr 07/17/21 18:00 Normal Saline IV ASDIRECTED SIMEON Discontinued Medications Generic Name Dose Route Start Last Admin Trade Name Freq PRN Reason Stop Dose Admin Calcium Gluconate 1 gm 07/17/21 17:56 Calcium Gluconate 10% 1 Gm/10 Ml Sdv IVPUSH 07/17/21 17:57 ONETIME ONE Insulin Human Regular 10 unit 07/17/21 17:54 Insulin Regular, Human 100 Units/Ml 3 Ml Vial IVPUSH 07/17/21 17:55 ONETIME ONE Ondansetron HCl 4 mg 07/17/21 17:57 Ondansetron 4 Mg/2 Ml Sdv IVPUSH 07/17/21 17:58 ONETIME ONE Sodium Polystyrene Sulfonate 45 gm 07/17/21 17:57 Sodium Polystyrene Sulfonate 15 Gm/60 Ml Susp 60 Ml Bot PO 07/17/21 17:58 NOW ONE Departure - Departure Time of Disposition: 18:00 Disposition: Admitted As Inpatient 67 Condition: Good Clinical Impression: Hyperkalemia, Diarrhea, Acute renal insufficiency - Discharge Information *PRESCRIPTION DRUG MONITORING PROGRAM REVIEWED*: No *COPY OF PRESCRIPTION DRUG MONITORING REPORT IN PATIENT ISH: No Referrals: Lauren Vidal PA-C [Primary Care Provider] - Forms: ED Department Discharge Sepsis Event Note (ED) - Focused Exam Vital Signs: Vital Signs Temp Pulse Resp BP Pulse Ox 07/17/21 16:52 36.1 C 89 18 138/60 98 - Problem List & Annotations (1) Diarrhea SNOMED Code(s): 64980519 Code(s): R19.7 - DIARRHEA, UNSPECIFIED Status: Acute Current Visit: Yes (2) Hyperkalemia SNOMED Code(s): 48880210 Code(s): E87.5 - HYPERKALEMIA Status: Acute Current Visit: Yes - My Orders Last 24 Hours: My Active Orders 07/17/21 17:54 Dextrose 50% in Water 50 ml IVPUSH ASDIRECTED PRN Glucagon,Human Recombinant [GlucaGen] 1 mg IM ASDIRECTED PRN 07/17/21 18:00 Sodium Chloride 0.9% @ 100 MLS/HR(1000ml) Sodium Chloride 0.9% [Normal Saline] 1,000 ml IV ASDIRECTED 07/17/21 18:06 Patient Status [ADT] Stat - Assessment/Plan Last 24 Hours: My Active Orders 07/17/21 17:54 Dextrose 50% in Water 50 ml IVPUSH ASDIRECTED PRN Glucagon,Human Recombinant [GlucaGen] 1 mg IM ASDIRECTED PRN 07/17/21 18:00 Sodium Chloride 0.9% @ 100 MLS/HR(1000ml) Sodium Chloride 0.9% [Normal Saline] 1,000 ml IV ASDIRECTED 07/17/21 18:06 Patient Status [ADT] Stat
[2021-07-17] MEDS ORDERED: 50% Dextrose in Water 50 ML Syringe IVPUSH PRN (17:54)
[2021-07-17] MEDS ORDERED: Insulin Regular, Human 100 Units/ML 3 ML Vial IVPUSH ONE (17:54)
[2021-07-17] MEDS ORDERED: Glucagon,Human Recombinant 1 MG Vial IM PRN (17:54)
[2021-07-17] MEDS ORDERED: Calcium Gluconate 10% 1 GM/10 ML SDV IVPUSH ONE (17:56)
[2021-07-17] MEDS ORDERED: Ondansetron 4 MG/2 ML SDV IVPUSH ONE (17:57)
[2021-07-17] MEDS ORDERED: Sodium Polystyrene Sulfonate 15 GM/60 ML Susp 60 ML Bot PO ONE (17:57)
[2021-07-17] MEDS: Sodium Chloride 0.9% 1,000 ML IV SCH (18:27)
[2021-07-17] MEDS ORDERED: Ondansetron 4 MG/2 ML SDV IV PRN (19:22)
[2021-07-17 20:41] LABS: CHLORIDE,CL 106 mmol/L (98-107); SODIUM,NA 138 mmol/L (136-145)
[2021-07-17] MEDS: Erythromycin Base 0.5% Ophth Oint 3.5 GM Tube EYEBOTH SCH (22:53)
--- NOTE | 2021-07-18 01:59 | HP ---
HISTORY: 86-year-old seen today for hyperkalemia and acute renal failure. The patient has been battling right leg cellulitis since 07/03 when she was started on Keflex 500 three times a day for 7 days and then she had a followup on 07/06 and due to not improving, she was switched over to Bactrim. She was also having diarrhea. She had been empirically on vancomycin once a day. She was having some worsening diarrhea and denies that it was severe, not more than like 7 times a day, but just very watery and brown, and then she had another followup on 07/10 and got a referral to [facility] and was instructed to push fluids. At that time, she had an ultrasound also completed, which was negative for DVT. She did have lab work initially on the 07/03; her creatinine was 1.12, which is at her baseline, and then over the weekend, she continued with the loose stools and even threw up. She was nauseated. She actually quit the Bactrim about 2 days ago. She has not had any fever or chills. No shortness of breath, but after vomiting, she did cough so hard her ribs hurt, but she is no longer coughing and when she was seen today, she was told to stop all antibiotics and ordered a test for C difficile, which she collected and it is at home. Her leg was wrapped. She otherwise has a history of some rectal cancer, but her leg is not significantly swollen when I saw it after being wrapped. It is still red. There are some venous stasis changes on it. Some really lymphedema changes, but no open wound. The patient has had hip surgery and a hip revision due to infection on that leg. ALLERGIES: Include codeine and nicotine. MEDICATIONS: Include Imodium as needed, she has not taken any today; losartan 100 mg daily; Lasix 20 mg 2 times a week; eye drops; Prolia every 6 months; probiotics; and calcium and vitamin D. 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 PAST SURGICAL HISTORY: She has had umbilical hernia on the right; total hip revision on the right in 2017 and 2018, and a hip surgery initially in 2015; tonsils and adenoidectomy; rectal procedure for excision, re-excision of anal margins; ORIF for a distal radius fracture with carpal tunnel release on the right; colon resection; colostomy takedown; colonoscopies; lymph node biopsy. FAMILY HISTORY: Both parents are . Her mother had rheumatoid arthritis. Her father had diabetes and a stroke. SOCIAL HISTORY: The patient is . She has 6 children. She is a nonsmoker currently and does not use any alcohol. REVIEW OF SYSTEMS: General: She is not aware of any changes in weight. No fever, no chills. HEENT: No sore throat. No trouble swallowing. Cardiac: No chest pain. No palpitations. Respiratory: No current cough or shortness of breath. Musculoskeletal: She actually has no pain in that right leg. Psych: She is not anxious or depressed. Neurologic: She is not confused. She is able to answer all questions appropriately. PHYSICAL EXAMINATION: Vital Signs: Her temperature is 97, pulse 89, blood pressure 138/60, respiratory rate 18, O2 of 98% on room air. General: She is in no acute distress. Heart: Regular rate and rhythm with murmur. Lungs: Sounds are clear to auscultation bilaterally without crackles or wheezes. Abdomen: Positive bowel sounds. Soft, nondistended, nontender. Extremities: Warm and dry. No edema on the left leg, trace edema on the right ankle. No calf tenderness. She has good ankle range of motion. There is some redness to the top of the foot and up to the mid calf with some brown overgrowth of skin noted. No open sores. No drainage. There is mild warmth. Her toes show no foot ulcers. Mental Status: She is alert. She is orientated x3. LABORATORY DATA: Lab work repeated in the ER is pending for potassium. Otherwise, COVID negative. Lab work from the clinic this morning at about 1:50 includes white count normal at 8.5, hemoglobin 12.4, platelets 237. Her glucose is 97, BUN 39, creatinine 2.46, sodium 138, potassium 6.4, chloride 106, bicarb 24, calcium 9.7. UA pending. CRP pending. ASSESSMENT: 1. Acute renal failure, likely related to prerenal with vomiting and diarrhea and also renal with the current Bactrim use. We will check a UA. 2. Hyperkalemia due to the Bactrim and renal failure along with the losartan. 3. Cellulitis, right lower extremity. She has been treated with antibiotics at least for about 12 days. She is currently off antibiotics. We will continue with leg elevation and wrapping and check a CRP and we will start antibiotics if indicated. 4. Foot cares. I am going to try some miconazole cream in case this is secondary to some fungal infection. It is very hard to tell with current redness in her feet. 5. Essential hypertension. Blood pressures are controlled. We will hold her losartan due to renal failure. 6. History of deep venous thrombosis. We will put her on Lovenox for DVT prophylaxis. 7. History of Clostridium difficile. We will check a stool test. PLAN: The patient will be admitted for acute cares. We will repeat lab work now and again in the morning. She is a code level 3. We will hold off on any Imodium as she did receive some Kayexalate in the ER. She also received some insulin and D5 and had no EKG changes. Admitted for hyperkalemia and acute renal failure. I anticipate she will need a 2-night stay. MKA: 07/17/2021 20:32:21 MODL: 07/18/2021 01:54:38 /[id number]
[2021-07-18] MEDS ORDERED: Calcium Citrate/Vitamin D3 315 MG-250 Unit Tab PO SCH (08:00)
[2021-07-18] MEDS: Enoxaparin 30 MG/0.3 ML Syringe SUBCUT SCH (08:15)
[2021-07-18] MEDS: Hypromellose 0.3% Ophth Soln 15 ML Bottle EYELF SCH ×2 (08:15→20:06)
[2021-07-18] MEDS: Acetaminophen 325 MG Tab PO PRN ×3 (10:14→23:38)
[2021-07-18] MEDS: ceFAZolin 1 GM Vial IVPUSH SCH ×2 (10:15→16:20)
[2021-07-18] MEDS: Sodium Chloride 0.9% 1,000 ML IV SCH (10:17)
[2021-07-18] MEDS: Miconazole 2% Vaginal Crm 45 GM Tube TOP SCH ×4 (10:19→20:07)
--- NOTE | 2021-07-18 10:45 | CR ---
[id number] RAD/RAD Chest PA or AP 1V EXAM: RAD Chest PA or AP 1V INDICATION: COUGH COMPARISON: None. DISCUSSION/IMPRESSION: Mild cardiomegaly and central vascular congestion. Hiatus hernia projects over the cardiac silhouette. Bilateral symmetric lung hyperinflation most consistent with parenchymal emphysema. Correlate for COPD. Negative for pneumonia. No pleural effusion, pneumothorax, or parenchymal edema. Teddy Mead MD 07/18/21 1043 Thank you for allowing us to participate in the care of your patient.
--- NOTE | 2021-07-18 12:09 | PN ---
Progress Note for [facility] Date: 07/18/2021 Room #: VM.216 SUBJECTIVE: This is hospital day #2 on an 86-year-old admitted with acute renal failure and hyperkalemia after taking Bactrim for right lower extremity cellulitis. Cr up to 2.6 baseline 1.1. The patient is having right foot and ankle pain today. She has not had any fever or chills. Her white count was normal. Her CRP was mildly elevated at 4.2. She was not placed on antibiotics in the hospital as she had completed about 12 days and was already stopped on them in the clinic. She has had good urine output. She is eating. She ate 100% of breakfast. She has otherwise not had any shortness of breath. She only coughed after trying to swallow her calcium pill. She has no stomach pain. She has had bowel movements. She did get Kayexalate in the ER. She got insulin and D5, but still her blood sugar went down into the 40s and 50s, and they did treat that with food last evening. OBJECTIVE: Vital Signs: This morning, her temperature is 97.1, pulse 81, blood pressure 123/46, respiratory rate 14, and O2 of 92% on room air. General: She is in no acute distress. Heart: Regular rate and rhythm with murmur. Lungs: Sounds are clear to auscultation bilaterally without crackles or wheezes. Abdomen: Has positive bowel sounds. Soft, nondistended, nontender. Extremities: Warm and dry. She does have redness to the right foot and calf. No calf tenderness. No swelling. No open wounds or drainage. The ankle has no effusion. She has good ankle range of motion. The tenderness is more in the ankle area and heel. Mental Status: She is alert and orientated x3. LABORATORY DATA: Lab work does show white count 4, hemoglobin 10.6, platelets 183. Sodium 142; potassium 5; chloride 109; bicarb 26; BUN 32; creatinine 1.9, improved; glucose 88; calcium 8.8. UA; 0 to 5 wbc's and 5 to 10 rbc's. ASSESSMENT AND PLAN: 1. Acute renal failure due to volume depletion with diarrhea and vomiting along with taking Bactrim. Improving with IV fluids. We will stop the fluids after she finishes this bag. We will continue to hold lisinopril, which was discussed with her. She specifically asked about her blood pressure medications for home. I told her we will decide if she needs further blood pressure medications, but right now her blood pressure is controlled. We are also holding Lasix. 2. Hyperkalemia due to Bactrim. This has resolved. Her potassium is down to 5. We will continue to monitor. We will hold lisinopril. 3. Essential hypertension, controlled. She is not currently on any medications. We will continue to monitor. 4. Right lower extremity cellulitis, now with pain. We will get her started on some IV Ancef. She had already been on outpatient Keflex, then Bactrim. We will keep the leg elevated, wrapped in Singh wraps. I will try to use some miconazole cream. 5. History of deep vein thrombosis. She is on Lovenox for deep vein thrombosis prophylaxis. 6. History of Clostridium difficile. I will empirically start her on some oral vancomycin and did send off a stool study for Clostridium difficile, however, per the patient, it does not seem like when she had Clostridium difficile before. We will empirically treat her with vancomycin until we know. PLAN: The patient will continue acute cares. We will repeat lab work tomorrow. We will finish this bag of fluids. We will start her on IV Ancef. JENNIFERA: 07/18/2021 11:31:37 MODL: 07/18/2021 12:01:24 /[id number] MTDD
[2021-07-18] MEDS: Vancomycin 125 MG Cap PO SCH ×3 (13:33→20:06)
[2021-07-18] MEDS: Erythromycin Base 0.5% Ophth Oint 3.5 GM Tube EYEBOTH SCH (20:07)
[2021-07-19] MEDS: ceFAZolin 1 GM Vial IVPUSH SCH ×3 (00:05→09:47)
[2021-07-19 07:32] LABS: ANION GAP 11.8 mmol/L (5-15)
[2021-07-19] MEDS: Hypromellose 0.3% Ophth Soln 15 ML Bottle EYELF SCH (07:33)
[2021-07-19] MEDS: Enoxaparin 30 MG/0.3 ML Syringe SUBCUT SCH (07:33)
[2021-07-19] MEDS: Acetaminophen 325 MG Tab PO PRN ×2 (07:34→11:29)
[2021-07-19] MEDS: Vancomycin 125 MG Cap PO SCH ×2 (07:36→11:29)
[2021-07-19] MEDS: Miconazole 2% Vaginal Crm 45 GM Tube TOP SCH (07:38)
[2021-07-19] MEDS ORDERED: Furosemide 20 MG Tab PO SCH (08:34)
[2021-07-19] MEDS ORDERED: Labetalol 20 MG/4 ML Syringe IVPUSH ONE (08:35)
--- NOTE | 2021-07-19 12:47 | PN ---
Progress Note for [facility] Date: 07/19/2021 Room #: VM.216 SUBJECTIVE: Hospital day #3 on an 86-year-old admitted with hyperkalemia and acute renal failure after taking Bactrim for right lower extremity cellulitis. The patient's creatinine has continued to improve, now down to 1.4, which is nearly her baseline. Potassium is normal at 4.8, but her Lasix and lisinopril had been on hold. This morning, she is having a headache. Her blood pressure is quite elevated to 178/78, but she also had a headache yesterday when blood pressure was even normal and she took Tylenol, but it made her get sick and she did throw it up this morning, but Tylenol had previously helped. Her right ankle was hurting yesterday. That is better today. She has not had any fever or chills. She has otherwise been eating and drinking okay. She has been off IV fluids. She is not having any chest pain, cough, shortness of breath, or stomach pain. OBJECTIVE: Vital Signs: Her temperature is 97.8, pulse 90, blood pressure 178/78, respiratory rate 16, and O2 of 92% on room air. General: She is in no acute distress. Heart: Regular rate and rhythm. S1, S2 with murmur. Lungs: Sounds are clear to auscultation bilaterally without crackles or wheezes. Abdomen: Has positive bowel sounds. Soft, nondistended, nontender. Extremities: Warm and dry. No edema. Mental Status: Alert and oriented x3. She is moving all extremities appropriately. LABORATORY WORK: Does show white count 3.5, hemoglobin 11.3, platelets 182. Sodium 143, potassium 4.8, chloride 110, bicarb 26, BUN 17, creatinine 1.4, glucose 95, calcium 8.9. CRP down to 4.0. ASSESSMENT: 1. Acute renal failure due to volume depletion from diarrhea and vomiting and Bactrim, resolving. The patient may go home later today if blood pressure improves. Otherwise, if she stays, would check blood work in the morning. 2. Hyperkalemia, resolved. 3. Essential hypertension with elevated blood pressures. We will restart her Lasix. Should be able to safely restart lisinopril as well on discharge, but with repeat lab work in 1 week. I will give her a dose of IV labetalol now as she is having a headache. 4. Headache, might be blood pressure related. We will try to bring that down. 5. Nausea and vomiting after the headache and Tylenol. She has p.r.n. Zofran available. 6. Right lower extremity cellulitis. She is getting leg wraps. She will likely need some home health for that. She will continue on the IV Ancef until discharged on oral antibiotics. We are also using some miconazole cream. 7. History of deep vein thrombosis. She is on Lovenox. 8. History of Clostridium difficile. Her test did return negative this morning. I will continue the oral vancomycin though for prophylaxis as long as she is on antibiotics due to her history of Clostridium difficile. PLAN: The patient will continue acute cares until she is able to be discharged home later today. Even though she did not improve initially with the Keflex, I would discharge her on probably 250 q.i.d. for another 5 days. She already has outpatient vascular followups scheduled per her primary care. MKA: 07/19/2021 12:09:55 MODL: 07/19/2021 12:34:39 /[id number]
--- NOTE | 2021-07-20 00:13 | DISCH ---
PRIMARY DISCHARGE DIAGNOSIS: Acute renal failure. SECONDARY DISCHARGE DIAGNOSES: 1. Hyperkalemia due to medications. 2. Essential hypertension. 3. Right lower extremity cellulitis. 4. History of deep venous thrombosis. 5. History of Clostridium difficile. REASON FOR ADMISSION: On the date of admission, this 86-year-old female returned to the clinic. She had had a couple of visits already this month for cellulitis and had an ultrasound that was negative for DVT. She was treated with Keflex initially 3 times a day, but her redness failed to improve; therefore, she was switched over to Bactrim and had actually been on antibiotics from 07/03, switched to Bactrim on 07/06, but stopped taking it about 2 days prior to admission due to feeling ill, making her have diarrhea and vomiting. She had taken antibiotics for at least 11 days. She was having no fever, no chills. The patient was admitted. Her losartan and Lasix were held. She was given IV fluids. She had actually received some IV insulin and D50 in the ER with Kayexalate and her potassium improved from 5.6 in the clinic to 4.7. Her blood sugar was lower down into the 40s due to the insulin and she was fed. She did improve and had no further issues with low blood sugar and her potassium was still normal at 4.8 on discharge. Her losartan was held during her stay, she is normally on 100, but Lasix was restarted this morning due to elevated blood pressures. UA was done; she had 5 to 10 rbc's, but no wbc's. She otherwise had a mostly uneventful hospital course. Because of the right ankle pain and swelling and elevated CRP to 4, she did get IV Ancef started and will be going home on Keflex. DISCHARGE PLANS AND INSTRUCTIONS: She will follow up with Lauren Vidal with a BMP in 1 week. She will restart losartan, but only 50 mg daily. She will restart her same Lasix dose at home; she told me she took it daily, but per records it says twice a week; she was given a dose today. She will be on Home Health to help keeping the leg wrapped and monitoring for skin breakdown. She will be on miconazole cream twice daily and an Singh wrap. She will be on probiotics for the next 2 weeks to prevent C difficile and take vancomycin once daily for 5 more days as she has done this in the past with antibiotics. Discharge vitals are in her progress note from today and [id number] encounter occurred with myself on 07/19/2021. The primary reasons for home health are for teaching and assessment of that right leg cellulitis and how to manage the swelling and wound cares. She also will have PT for gait and mobility and the therapist who saw her in the hospital did recommend some home health for PT and OT for assistance with activities of daily living pertaining to caring for her leg cellulitis and probably some lymphedema and I will periodically review this plan of care. The patient is home bound due to this current illness she had with cellulitis, then renal failure. She did receive DVT prophylaxis during her stay in the hospital. MKA: 07/19/2021 15:15:29 MODL: 07/20/2021 00:04:35 /[id number]
== END 2021-07-19 15:54 | disposition home health service (06) | DRG 683 ==
LOC: VM.ED 16:52 → VM.MS 18:06
PROVIDERS: ADMIT Physician Assistant Medical; ATTEND Internal Medicine
DX: E87.6 Hypokalemia (principal); R19.7 Diarrhea, unspecified; N17.9 Acute kidney failure, unspecified; L03.115 Cellulitis of right lower limb; I34.0 Nonrheumatic mitral (valve) insufficiency; I13.0 Hypertensive heart and chronic kidney disease with heart failure and stage 1 through stage 4 chronic kidney disease, or unspecified chronic kidney disease; N32.81 Overactive bladder; E87.5 Hyperkalemia; Z85.828 Personal history of other malignant neoplasm of skin; T36.8X5A Adverse effect of other systemic antibiotics, initial encounter; K21.9 Gastro-esophageal reflux disease without esophagitis; J44.9 Chronic obstructive pulmonary disease, unspecified; N18.30 Chronic kidney disease, stage 3 unspecified; M81.0 Age-related osteoporosis without current pathological fracture; Z20.822 Contact with and (suspected) exposure to COVID-19; I50.9 Heart failure, unspecified; E78.00 Pure hypercholesterolemia, unspecified; R51.9 Headache, unspecified; E86.9 Volume depletion, unspecified; Z86.718 Personal history of other venous thrombosis and embolism; Z79.01 Long term (current) use of anticoagulants; Z88.5 Allergy status to narcotic agent; Z79.899 Other long term (current) drug therapy; Z88.8 Allergy status to other drugs, medicaments and biological substances; Z87.01 Personal history of pneumonia (recurrent)
CPT/HCPCS: 36415; 71045; 80048; 80069; 81001; 82570; 82947; 84300; 85025; 86140; 87493; 93005; 93010; 97162-GP; 99284; 99285-25; A9270-GY; J0610; J0690; J1650; J1815-GY; J2405; J3490; J7030; U0002

== ENCOUNTER 2023-02-15 13:28 | Emergency (ER) | payer MEDICARE, OTHER | END 2023-02-15 13:44 | disposition home or self-care (01) | LOC: VM.ED 13:28 → SUPCPDRO 13:28 → VM.ED 13:44 | DX: L03.115 Cellulitis of right lower limb (principal); J44.9 Chronic obstructive pulmonary disease, unspecified; E66.9 Obesity, unspecified; Z68.29 Body mass index [BMI] 29.0-29.9, adult; Z87.891 Personal history of nicotine dependence; Z88.5 Allergy status to narcotic agent; Z91.048 Other nonmedicinal substance allergy status; Z79.899 Other long term (current) drug therapy | CPT/HCPCS: 99283 ==

== ENCOUNTER 2025-07-13 12:12 | Emergency (ER) | payer MEDICARE, OTHER ==
[2025-07-13 12:33] LABS: BASOPHILS ABSOLUTE AUTO 0.1 x10^3/uL (0.0-0.2); BASOPHILS PERCENT AUTO 0.8 % (0.2-1.2); EOSINOPHILS ABSOLUTE AUTO 0.3 x10^3/uL (0.0-0.5); EOSINOPHILS PERCENT AUTO 5.3 % (0.0-4.0); IMMATURE GRAN ABSOLUTE AUTO 0.01 x10^3/uL (0.00-0.07); IMMATURE GRAN PERCENT AUTO 0.20 % (0.00-0.43); LYMPHOCYTES ABSOLUTE AUTO 1.3 x10^3/uL (1.0-4.8); LYMPHOCYTES PERCENT AUTO 19.3 % (25.0-50.0); MONOCYTES ABSOLUTE AUTO 0.4 x10^3/uL (0.0-0.8); MONOCYTES PERCENT AUTO 6.0 % (2.0-11.0); NEUTROPHILS ABSOLUTE AUTO 4.4 x10^3/uL (1.8-7.7); NEUTROPHILS PERCENT AUTO 68.4 % (50.0-80.0); PLATELET COUNT,PLT 231 x10^3/uL (130-400); RED BLOOD CELL COUNT 4.23 x10^6/uL (4.00-5.50); WHITE BLOOD CELL COUNT,WBC 6.5 x10^3/uL (4.0-10.0)
[2025-07-13 12:54] LABS: A/G RATIO 0.78; ALANINE AMINOTRANSFERASE,ALT 9.0 U/L (14-59); ASPARTATE AMNIOTRANSFERASE,AST 12.0 U/L (15-37); BILIRUBIN TOTAL 0.4 mg/dL (0.2-1.0); BLOOD UREA NITROGEN,BUN 20.0 mg/dL (7-18); CARBON DIOXIDE,CO2 30.0 mmol/L (21-32); CHLORIDE,CL 105.0 mmol/L (98-107); CREATININE 1.1 mg/dL (0.55-1.02); EST CRCL DRUG DOSING (CG) 31.2 mL/min; GLUCOSE RANDOM 99.0 mg/dL (70-99); POTASSIUM,K 4.4 mmol/L (3.5-5.1); PROTEIN TOTAL,TP 7.1 g/dL (6.4-8.2); SODIUM,NA 141.0 mmol/L (136-145)
[2025-07-13 12:55] LABS: ESTIMATED GFR 48.0 mL/min (>=60)
[2025-07-13 13:30] VITALS: BP 195/81; PULSE 82
== END 2025-07-13 13:56 | disposition short-term general hospital (02) ==
LOC: VM.ED 12:12
DX: M79.89 Other specified soft tissue disorders (principal); M79.605 Pain in left leg; E78.00 Pure hypercholesterolemia, unspecified; J44.9 Chronic obstructive pulmonary disease, unspecified; E66.9 Obesity, unspecified; Z79.899 Other long term (current) drug therapy; Z88.5 Allergy status to narcotic agent; Z88.8 Allergy status to other drugs, medicaments and biological substances; Z68.26 Body mass index [BMI] 26.0-26.9, adult
CPT/HCPCS: 36415; 80053; 85025; 85379; 99284; A9270-GY